=== PATIENT | female | born 1975 | race Caucasian/White ===

== ENCOUNTER 2020-07-21 10:04 | Inpatient (IN) | payer BC, SELFPAY ==
--- NOTE | ~2020-07-21 | CT_ITS ---
EXAMINATION: CT abdomen pelvis w con EXAM DATE: 07/26/2020 14:13 INDICATION: Follow-up pelvic abscess. TECHNIQUE: Spiral CT of the abdomen and pelvis was performed following intravenous injection of 100 m L Omnipaque 350. Axial, coronal and sagittal images were reviewed. The dose-length product (DLP) fo r this examination was 750.20 mGy-cm. The exposure was tailored according to patient size (auto mA e xposure control), and iterative reconstruction (ASIR) was used as additional dose reduction technique . Comparison is made to prior examination from 07/21/2020. FINDINGS: Possible recent trocar sites identified abdomen bilaterally and at the umbilicus. Anterior lower abdominal pigtail catheter drain tip located above the bladder. The previously seen 12 cm absce ss pocket is collapsed, has been drained. There is inflammation in the pelvis as would be expected. The spleen, adrenal glands and pancreas are unremarkable. Some liver surface undulations, can't exclu de cirrhosis. The gallbladder is contracted but otherwise unremarkable. Portal and splenic veins are patent. Kidneys enhance symmetrically. There is no hydronephrosis. The uterus is not identified and has likely been surgically resected. The bladder is unremarkable. There is no retroperitoneal o r pelvic lymphadenopathy. The appendix is normal. The stomach and small bowel are unremarkable. There is colonic fluid, corre late for diarrhea. No free intraperitoneal gas. There are small to moderate bilateral pleural eff usions which have developed compared to prior examination. Some progression in bibasilar subsegmental atelectasis. There are no osteoblastic or osteolytic lesions identified. IMPRESSION: 1. Pelvic drain in position within collapsed abscess cavity. 2. Development of small to moderate pleural effusions, bibasilar segmental atelectasis. 3. Colonic fluid. 4. Liver surface undulations, can't exclude cirrhosis. Reviewed, dictated and finalized at location B. IMPRESSION: 1. Pelvic drain in position within collapsed abscess cavity. 2. Development of small to moderate pleural effusions, bibasilar segmental ate lectasis. 3. Colonic fluid. 4. Liver surface undulations, can't exclude cirrhosis.
--- NOTE | ~2020-07-21 | CT_ITS ---
EXAMINATION: CT guide absc cath placement DATE: 07/22/2020 15:01 INDICATION: Pelvic abscess TECHNIQUE: The procedure including the risks and benefits was discussed with the patient. Risks discu ssed included bleeding and infection. The patient understood the risks and benefits and agreed to pro ceed. The patient was confirmed to be receiving appropriate antibiotic coverage. The skin overlying the anterior midline of the pelvis was prepped and draped in usual sterile fashion. Anesthetic was a dministered with 1% lidocaine subcutaneously. An 18-gauge trocar needle was inserted into the periton eal fluid collection utilizing CT guidance. The inner stylette was removed with spontaneous reflux of gas and small amount of purulent appearing fluid. A J-wire advanced into the fluid collection with p ositioning confirmed by CT. Utilizing Seldinger technique the needle was removed over the wire and th e tract serially dilated to 10 Italian. A 10 Italian drainage catheter was advanced over the wire into the fluid collection and the pigtail tip was locked with position confirmed by CT. The stiffener and wire were removed and the catheter was stitched to the skin with suture. Antibiotic ligament and a st erile dressing were applied. 50 mL of opaque brown purulent appearing fluid was aspirated and sent to t he lab for Gram stain and cultures. The catheter was then attached to suction drainage with an additi onal 100 mL of purulent appearing fluid having drained into the bag at the conclusion of the procedur e. There were no immediate complications. The dose-length product was 87.67 mGy-cm. FINDINGS: CT images demonstrate the catheter within the enlarged gas and fluid containing abscess cav ity in the central pelvis. 50 mL fluid was aspirated for testing. IMPRESSION: 1. Successful CT-guided pelvic abscess drainage catheter placement. 2. 50 mL fluid was sent for aerobic and anaerobic cultures. 3. The catheter will be managed by Dr. Yoder. Reviewed, dictated and finalized at location A.
--- NOTE | ~2020-07-21 | XR_ITS ---
XR chest 2V 07/22/2020 14:57 Indication: Productive cough. Dyspnea. Procedure: 2 view chest Comparison: 05/26/2018 Findings: Bibasilar airspace disease, compatible with pneumonia. Borderline heart size. No significan t pleural effusion, edema or pneumothorax. Impression: 1: Bibasilar airspace disease, compatible with pneumonia. Reviewed, dictated and finalized at location B. Impression: 1: Bibasilar airspace disease, compatible with pneumonia.
--- NOTE | ~2020-07-21 | CT_ITS ---
EXAMINATION: CT abdomen pelvis w con EXAM DATE: 07/21/2020 11:49 INDICATION: Abdominal pain and distention. TECHNIQUE: Spiral CT of the abdomen and pelvis was performed following intravenous injection of 100 m L Omnipaque 350. Axial, coronal and sagittal images were reviewed. The dose-length product (DLP) fo r this examination was 611.77 mGy-cm. The exposure was tailored according to patient size (auto mA e xposure control), and iterative reconstruction (ASIR) was used as additional dose reduction technique . There is no prior study for comparison. FINDINGS: There is a large abscess in the mid aspect of the pelvis with air-fluid level measuring 10 x 12 cm. No gross free intraperitoneal gas. Consider percutaneous drainage. The liver, spleen, adren al glands and pancreas are unremarkable. Moderate gallbladder distention without calcified cholelith iasis. Portal and splenic veins are patent. Kidneys enhance symmetrically. There is no hydronephro sis. The uterus is not identified and has likely been surgically resected. The bladder is unremark able. There is no retroperitoneal or pelvic lymphadenopathy. The appendix is normal. The stomach and small bowel are unremarkable. There is expected amount of c olonic stool. No free intraperitoneal gas. The heart is normal in size. There are no pericardial or pleural effusions. Linear by basilar atelectasis. There are no osteoblastic or osteolytic lesio ns identified. IMPRESSION: Large pelvic abscess of uncertain underlying origin. Recommend percutaneous drainage. Reviewed, dictated and finalized at location A. IMPRESSION: Large pelvic abscess of uncertain underlying origin. Recommend perc utaneous drainage.
--- NOTE | 2020-07-21 10:15 | ED.ABDPAIN ---
HPI - Abdominal Pain General Chief Complaint: Abdominal Pain Stated Complaint: abd pain/distention Time Seen by Provider: 07/21/20 10:15 History of Present Illness HPI narrative: Worsening abdominal pain and distension since hysterectomy days ago. Associated with constipation and difficulty urinating. She reports that she is still able to urinate and have bowel movements, but only in small amounts. She was taking vicodin until 3 days ago. No nausea, vomiting, fever, hematuria. Related Data Home Medications Medication Instructions Recorded Confirmed cholecalciferol (vitamin D3) 2,000 unit PO DAILY 07/21/20 07/21/20 levothyroxine [Synthroid] 88 mcg PO DAILY 07/21/20 07/21/20 liothyronine 5 mcg PO BID 07/21/20 07/21/20 sertraline 50 mg PO DAILY 07/21/20 07/21/20 Allergies Allergy/AdvReac Type Severity Reaction Status Date / Time propoxyphene Allergy Intermediate Hives / Verified 06/30/15 02:13 Red Face acetaminophen Allergy Hives Verified 07/21/20 17:58 [From JonnyVini] Review of Systems Review of Systems: All systems reviewed & are unremarkable except as noted in HPI and below Constitutional: Constitutional: Denies chills, Denies fever(s) and Denies weakness Cardiovascular: Cardiovascular: Denies chest pain Respiratory: Respiratory: Denies dyspnea Gastrointestinal: Gastrointestinal: Reports abdominal pain, Reports constipation, Denies nausea and Denies vomiting Genitourinary: Genitourinary: Denies hematuria and Denies flank pain Musculoskeletal: Musculoskeletal: Reports back pain Neurologic: Denies dizziness PMF Past Medical History Medical History Anemia Anxiety Atrial fibrillation, persistent Depression Hypothyroidism Uterine fibroid Surgical History Surgical History H/O thyroidectomy H/O: hysterectomy Social History Social History Smoking status: Never smoker Alcohol intake: never Substance use: never Gender identity (if verbalized by the patient): Female Sexual Orientation (if Verbalized by the Patient): Straight or Heterosexual Spiritual care concerns: No Exam Const: General: healthy appearing, no acute distress and alert Orientation/consciousness: patient oriented x3 HENMT: Head: normal to inspection Resp: Effort & Inspection: normal respiratory effort Auscultation: clear to auscultation bilaterally, no rales, no rhonchi and no wheezes Cardio: Jugular venous distension: no JVD Rate: regular rate Rhythm: regular rhythm Heart sounds: no murmurs GI: Inspection: distended GI Palp: Yes Soft to palpation, Yes Tenderness to palpation present (GI) (generalized), No Guarding due to palpation present (GI) and No Rebound tenderness present Auscultation: normal bowel sounds Skin: General skin exam: normal color Neuro: General: patient oriented x3, moves all extremities, no focal motor deficits and CN's II-XI intact bilaterally Speech: normal speech Extrem: General: no edema Psych: Appearance: well kempt Affect: normal affect Course Vital Signs Vital signs: Vital Signs Temperature 36.8 C 07/21/20 10:40 Pulse Rate 82 07/21/20 10:40 Respiratory Rate 18 07/21/20 10:40 Blood Pressure 143/81 H 07/21/20 10:40 Pulse Oximetry 100 07/21/20 10:40 Temperature 36.8 C 07/21/20 10:40 Pulse Rate 78 07/21/20 12:00 Respiratory Rate 15 07/21/20 12:00 Blood Pressure 135/87 07/21/20 12:00 Pulse Oximetry 100 07/21/20 12:00 MDM - Abdominal Pain MDM Narrative Medical decision making narrative: CT shows large intraabdominal abscess. Discussed with Dr. Yoder. He will admit. Will start Zosyn and consult interventional radiology for drainage. Differential Diagnosis Differential diagnosis: Likely constipation, diverticulitis, small bowel obstruction and other (urinary retention, abscess)
[2020-07-21 10:40] VITALS: BP 143/81; PULSE 82; RESP 18; TEMP 36.8; O2SAT 100
[2020-07-21 11:03] LABS: Hematocrit 34.1 % (37.0-47.0); Hemoglobin 11.5 g/dL (12.0-15.0); Mean Corpuscular HGB Conc 33.7 g/dl (32-36); Mean Corpuscular Hemoglobin 30.8 pg (26-34); Mean Corpuscular Volume 91.4 fl (80-100); Mean Platelet Volume 11.4 fl (7.4-10.4); Platelet Count Result 230 k/mm3 (150-375); Red Blood Count 3.73 M/mm3 (4.2-5.4); Red Cell Distribution Width 13.3 % (11.5-14.5); White Blood Count 17.6 K/mm3 (4.5-10.0)
[2020-07-21 11:13] LABS: Alanine Aminotransferase 15 U/L (4-35); Albumin Level 3.5 g/dL (3.5-5.1); Alkaline Phosphatase 183 U/L (38-126); Anion Gap 12 mmol/L (8-16); Aspartate Amino Transferase 22 U/L (14-36); Bilirubin,Total 1.1 mg/dL (0.2-1.3); Blood Urea Nitrogen 21 mg/dL (7-17); Calcium 9.4 mg/dL (8.4-10.2); Carbon Dioxide 24 mmol/L (22-30); Chloride 101 mmol/L (98-107); Estimated CRCL calculation 36 ml/min; Estimated Glomerular Filt Rate 33; Glucose 96 mg/dL (65-105); Potassium 2.9 mmol/L (3.4-5.0); Sodium 137 mmol/L (137-145)
[2020-07-21 11:15] LABS: Band Neutrophils Percent 19 % (0-6); Eosinophils Absolute Manual 0.17 K/mm3 (0.02-0.5); Eosinophils Percent Manual 1 % (0-4); Lymphocytes Absolute Manual 1.58 K/mm3 (1.1-4.5); Lymphocytes Percent Manual 9 % (18-44); Monocytes Absolute Manual 1.23 K/mm3 (0.1-0.90); Monocytes Percent Manual 7 % (3-9); Neutrophils Percent Manual 64 % (46-73); Platelet Estimate Adequate (Adequate); Total Cells Counted 100
[2020-07-21 11:16] LABS: Lipase < 10 U/L (23-300)
[2020-07-21 11:16] LABS: Lactic Acid Reflex 1.6 mmol/L (0.7-2.1)
[2020-07-21 11:18] LABS: Add Urine Microscopic? YES; Appearance Urine Cloudy (Clear); Bacteria Urine Trace /hpf; Bilirubin Urine Negative (Negative); Blood Urine 1+ (Negative); Color Urine Yellow (Yellow); Glucose Urine UA 1+ mg/dL (Negative); Granular Casts Urine 30-49 /lpf; Hyaline Casts Urine 30-49 /lpf; Ketones Urine Negative (Negative); Leukocyte Esterase Ur 1+ LEU/UL (Negative); Mucus Urine Few /lpf; Nitrate Urine Negative (Negative); Protein Urine 2+ mg/dL (Negative); RBC Urine 0-2 /hpf (0-2); Specific Grav Ur 1.019 (1.001-1.035); Squamous Epithelial Cell Urine Moderate /hpf (Few); WBC Urine 21-30 /hpf
[2020-07-21 12:00] VITALS: BP 135/87; PULSE 78; RESP 15; O2SAT 100
[2020-07-21 14:00] VITALS: BMI 31.0
--- NOTE | 2020-07-21 14:00 | PC.NURSE ---
This patient, Jo Shukla, was admitted to [facility] Surg Room 300-01. Patient/family oriented to hospital policies and general routines including ID bracelet, bed and alarms, visiting hours, pain management, procedures, bathroom and other care routines, personal items, smoking policy, room service/diet, and visiting hours. Valuables list has been completed. Information on how to activate the Rapid Response Team has been discussed. Patient/Family are encouraged to report perceived risks to care and to ask questions if they do not understand what they are told or what they should do.
--- NOTE | 2020-07-21 16:59 | PM.IMHP ---
H&P: HPI History of Present Illness Date/Time: 07/21/20 16:59 Chief complaint: Intraabdominal abscess Narrative: Jo Shukla is a 45 year old female s/p RALTH and Bilateral Salpingectomy on 07/12. Presented initially to clinic with increasing abdominal pain and pressure, difficulty urinating, sweats and chills. She states that symptoms have been worsening over the past week. This morning she went to the bathroom to urinate and was putting pressure on her bladder with her and to help with urination and felt a pop . She then noticed blood in her urine. In clinic, a pelvic exam was performed, vaginal cuff appeared intact and no vaginal bleeding or abnormal discharge was noted. Since being admitted to the hospital, she says she is starting to have foul smelling bloody vaginal discharge. Review of Systems Constitutional: Constitutional: Reports chills Cardiovascular: Cardiovascular: Reports no additional cardiovascular complaints and Denies chest pain Respiratory: Respiratory: Reports no additional respiratory complaints and Denies dyspnea Gastrointestinal: Gastrointestinal: Reports abdominal pain and Reports bloating Genitourinary: Genitourinary: Reports urinary frequency Neurologic: Reports system reviewed and no additional complaints, except as documented Psychiatric: Psychiatric: Reports no additional psychiatric complaints PMFSH Past Medical History Medical History Anemia Anxiety Atrial fibrillation, persistent Depression Hypothyroidism Uterine fibroid Surgical History Surgical History H/O thyroidectomy H/O: hysterectomy Social History Social History Smoking status: Never smoker Alcohol intake: never Substance use: never Gender identity (if verbalized by the patient): Female Sexual Orientation (if Verbalized by the Patient): Straight or Heterosexual Spiritual care concerns: No Meds Home Medications and Allergies Home Medications Medication Instructions Recorded Confirmed Type ibuprofen 800 mg PO TID PRN #20 tablet 11/03/19 07/21/20 Rx cholecalciferol (vitamin D3) 2,000 unit PO DAILY 07/21/20 07/21/20 History levothyroxine [Synthroid] 88 mcg PO DAILY 07/21/20 07/21/20 History liothyronine 5 mcg PO BID 07/21/20 07/21/20 History sertraline 50 mg PO DAILY 07/21/20 07/21/20 History Allergies Allergy/AdvReac Type Severity Reaction Status Date / Time acetaminophen Allergy Intermediate Hives / Verified 06/30/15 02:13 Red Face propoxyphene Allergy Intermediate Hives / Verified 06/30/15 02:13 Red Face Vital Signs Vital Signs - 24 hr 07/21/20 10:40 07/21/20 12:00 Temperature 36.8 C Pulse Rate 82 78 Respiratory Rate 18 15 Blood Pressure 143/81 H 135/87 Pulse Oximetry 100 100 Exam Const: General: comfortable and no acute distress Resp: Effort & Inspection: normal respiratory effort Auscultation: clear to auscultation bilaterally Cardio: Rate: regular rate Rhythm: regular rhythm GI: Inspection: distended GI Palp: Yes Tenderness to palpation present (GI) Percussion: Yes dullness to percussion Skin: General skin exam: normal color Psych: Mental Status: mental status grossly normal Affect: normal affect H&P: Results Labs Labs: Short CBC 07/21/20 Range/Units 10:35 WBC 17.6 H (4.5-10.0) K/mm3 Hgb 11.5 L (12.0-15.0) g/dL Hct 34.1 L (37.0-47.0) % Plt Count 230 (150-375) k/mm3 BMP 07/21/20 10:34 Sodium 137 Potassium 2.9 L Chloride 101 Carbon Dioxide 24 BUN 21 H Creatinine 1.70 H Glucose 96 Calcium 9.4 Liver Function 07/21/20 Range/Units 10:34 Total Bilirubin 1.1 (0.2-1.3) mg/dL AST 22 (14-36) U/L ALT 15 (4-35) U/L Alkaline Phosphatase 183 H (38-126) U/L Albumin 3.5 (3.5-5.1) g/dL Urine 07/21/20 Range/Units 10:50 Urine Color Phyllis
[2020-07-21] MEDS: POTASSIUM CHLORIDE 20 MEQ TABLET 40 MEQ PO (17:05)
[2020-07-21] MEDS: SODIUM CHLORIDE 0.9% IV 1,000 ML 125 ML IV CONT (17:06)
[2020-07-21] MEDS: IBUPROFEN 600 MG TABLET PO (19:57)
[2020-07-21 20:00] VITALS: BP 104/49; PULSE 102; RESP 18; TEMP 37.3; O2SAT 98
[2020-07-21] MEDS: HYDROcodone/acetaminophen (*CRX) 5-325 MG TABLET 1 TAB PO (22:00)
--- NOTE | 2020-07-21 22:30 | PM.IMCN ---
Assessment and Plan Assessment and plan (1) Sepsis: Code(s): A41.9 - Sepsis, unspecified organism Status: Acute Assessment and Plan: Present on admission and supported by tachycardia, leukocytosis, and acute kidney injury in the setting of infection. Lactic acid levels within normal limits and blood pressures have been stable. Unfortunately blood cultures were not drawn prior to initiation of antibiotics. (2) Pelvic abscess: Status: Acute Assessment and Plan: Large pelvic abscess status post hysterectomy on 07/12/2020. Management per primary team, agree with the Zosyn and percutaneous drainage per IR. (3) Acute kidney injury: Code(s): N17.9 - Acute kidney failure, unspecified Status: Acute Assessment and Plan: Etiology not entirely clear but likely multifactorial in etiology to include poor oral intake, NSAID use, and possible ATN from sepsis. I suspect her renal function will improve with cessation of NSAIDs, IV fluid rehydration, and treatment of underlying infection. Given abdominal distension, I will ask the nurses to scan her bladder to ensure she is not retaining. Repeat renal function in a.m. and if no significant improvement, would consider further workup. (4) Hypokalemia: Code(s): E87.6 - Hypokalemia Status: Acute Assessment and Plan: Potassium was replaced and will be monitored. (5) Post-surgical hypothyroidism: Code(s): E89.0 - Postprocedural hypothyroidism Status: Acute Assessment and Plan: Continue levothyroxine and liothyronine own. HPI Data of Consult Consult date: 07/21/20 Requesting Physician: Ryann oYder DO Primary Care Provider: Jag Montes, Consult Narrative Narrative: Jo Shukla is a a pleasant 45-year-old female whom the hospitalist service has been consulted for further evaluation of acute kidney injury. She is status post robotic assisted laparoscopic total hysterectomy with bilateral salpingectomy on July 12, [address] Yoder. Surgery was performed at [facility] and she was kept overnight and discharged the following day. Since her surgery she has been feeling unwell, with nearly constant pressure-like discomfort in her lower abdomen/vaginal region. The discomfort does radiate into the lower back and today she even reports a sharp shooting pain up into her left flank simply while turning around in bed. She took Vicodin for her pain, which seemed to help a little bit, but her prescription ran out and thus she has been taking 800 mg of ibuprofen twice a day for the last week or so without a whole lot of benefit. Her appetite has also been poor with frequent nausea and dry heaves. She has also felt constipated and has been taking stool softeners however she has only had 4 or 5 small bowel movement since her surgery. She has also had difficulties urinating, and feels as though she has to put pressure in her suprapubic region in order for her to urinate. This morning while she was on the toilet she did apply pressure to that region and reports that she heard ?a pop? and shortly thereafter she began having malodorous, bloody discharge. Additionally she reports chills and sweats but she has not had a documented fever. She came to the emergency department today given ongoing malaise, fatigue, and significant loss of energy. She was found to meet sepsis criteria, presumably due to intra-abdominal abscess, as well as an acute kidney injury. At the time my evaluation she has no complaints other than those listed above. Review of Systems Review of Systems: Narrative: Twelve systems were reviewed with pertinent positives an
[2020-07-22] VITALS (9 sets, daily range): BP systolic 95–104; BP diastolic 48–62; PULSE 79–97; RESP 16–18; TEMP 36.6–37.4; O2SAT 92–99
[2020-07-22] MEDS: SODIUM CHLORIDE 0.9% IV 1,000 ML 125 ML IV CONT ×3 (00:23→20:23)
[2020-07-22] MEDS: HYDROcodone/acetaminophen (*CRX) 5-325 MG TABLET 1 TAB PO ×3 (05:30→20:24)
[2020-07-22] MEDS: LEVOTHYROXINE SODIUM 88 MCG TABLET PO (05:30)
[2020-07-22 06:19] LABS: Hematocrit 28.2 % (37.0-47.0); Hemoglobin 9.8 g/dL (12.0-15.0); Mean Corpuscular HGB Conc 34.8 g/dl (32-36); Mean Corpuscular Volume 89.2 fl (80-100); Mean Platelet Volume 10.8 fl (7.4-10.4); Platelet Count Result 201 k/mm3 (150-375); Red Blood Count 3.16 M/mm3 (4.2-5.4); Red Cell Distribution Width 13.1 % (11.5-14.5); White Blood Count 14.3 K/mm3 (4.5-10.0)
[2020-07-22 06:26] LABS: INR 1.4; Prothrombin Time 16.6 Seconds (11.1-14.7)
[2020-07-22 06:27] LABS: Partial Thromboplastin Time 43.9 SECONDS (22.3-36.8)
[2020-07-22 06:39] LABS: Alanine Aminotransferase 11 U/L (4-35); Albumin Level 2.7 g/dL (3.5-5.1); Alkaline Phosphatase 144 U/L (38-126); Anion Gap 8 mmol/L (8-16); Aspartate Amino Transferase 15 U/L (14-36); Bilirubin,Total 0.8 mg/dL (0.2-1.3); Blood Urea Nitrogen 19 mg/dL (7-17); Calcium 7.9 mg/dL (8.4-10.2); Carbon Dioxide 22 mmol/L (22-30); Chloride 104 mmol/L (98-107); Estimated CRCL calculation 41 ml/min; Estimated Glomerular Filt Rate 38; Glucose 101 mg/dL (65-105); Potassium 3.2 mmol/L (3.4-5.0); Sodium 134 mmol/L (137-145)
[2020-07-22 06:46] LABS: Band Neutrophils Percent 15 % (0-6); Monocytes Absolute Manual 0.71 K/mm3 (0.1-0.90); Monocytes Percent Manual 5 % (3-9); Neutrophils Absolute Manual 12.58 K/mm3 (1.7-7.2); Neutrophils Percent Manual 73 % (46-73); Platelet Estimate Adequate (Adequate); Total Cells Counted 100
[2020-07-22 07:32] LABS: Thyroid Stimulating Hormone Reflex 0.997 uIU/mL (0.465-4.68)
[2020-07-22 08:23] LABS: Magnesium 1.4 mg/dL (1.6-2.3)
[2020-07-22] MEDS: DOCUSATE SODIUM 100 MG CAPSULE PO ×2 (09:05→20:14)
[2020-07-22] MEDS: SERTRALINE HCL 50 MG TABLET PO (09:05)
[2020-07-22] MEDS: LIOTHYRONINE SODIUM 5 MCG TABLET PO ×2 (09:05→20:14)
--- NOTE | 2020-07-22 09:47 | PM.IMPN ---
Progress Note: A&P Assessment and Plan (1) Sepsis: Code(s): A41.9 - Sepsis, unspecified organism Status: Acute Assessment and Plan: Present on admission and supported by tachycardia, leukocytosis, and acute kidney injury in the setting of an intraabdominal abscess infection Lactic acid levels within normal limits and blood pressures have been stable. Unfortunately blood cultures were not drawn prior to initiation of antibiotics, but we will still check them and they are pending. Vitals at this time have showed afebrile, BP slightly low normal at 95/54 to continue IV fluids, nontachycardic, normal oxygenation and respirations. Continue monitoring vital signs and antibiotics. (2) Pelvic abscess: Status: Acute Assessment and Plan: Large pelvic abscess status post hysterectomy on 07/12/2020. Continue IV Zosyn and the patient will have a percutaneous drainage per IR placed today at 2:00 p.m.. Will also get a culture of her abscess for further monitoring on bacterial source of infection. FRONT DESK ADMIN Dr. Yoder is admitting and appreciate their recommendations. Continue monitoring patient's symptoms. (3) Acute kidney injury: Code(s): N17.9 - Acute kidney failure, unspecified Status: Acute Assessment and Plan: Etiology not entirely clear but likely multifactorial in etiology to include poor oral intake, NSAID use, and possible ATN from sepsis. Creatinine improved from 1.7-1.5 today with IV fluid hydration. I suspect her renal function will improve with cessation of NSAIDs, IV fluid rehydration, and treatment of underlying infection. Will continue monitoring to make sure she is not retaining any urine due to the large abscess. Continue monitoring renal function and electrolytes. (4) Hypokalemia: Code(s): E87.6 - Hypokalemia Status: Acute Assessment and Plan: Potassium was low this morning at 3.2 and magnesium was 1.4. Potassium and magnesium were replaced and will be monitored. (5) Post-surgical hypothyroidism: Code(s): E89.0 - Postprocedural hypothyroidism Status: Acute Assessment and Plan: TSH normal. Continue levothyroxine and liothyronine own. Time Spent With Patient Time with patient: 25 - 35 minutes Subjective Date/time seen: 07/22/20 09:47 Interval history: Patient is a 45-year-old woman with history of recent total hysterectomy on 07/12/[address] Yoder at [facility] who presented to the emergency room with worsening weakness, fatigue, pressure-like discomfort to lower abdominal/vaginal region since 07/18/2020. Date of service 07/22/2020: The patient denies any improvement of her symptoms today. She is still very uncomfortable with abdominal distension, bloating, feeling diffusely uncomfortable, chills, diaphoresis intermittently, weakness and fatigue. She has not been eating and drinking much over the last few days since she has not been feeling well. She also reports a productive cough with intermittent yellow sputum production over the last few days. Denies SOB, HUSSEIN. She reports some trouble starting her urine stream, but once she begins going it is normal without the feeling of retention. She denies any fevers, chest pain, lightheadedness, dizziness, syncope, leg swelling, calf pain, or any other symptoms at this time. Review of Systems Review of Systems: All systems reviewed & are unremarkable except as noted in HPI and below Exam Narrative: Exam Narrative: General: 45-year-old woman laying flat on her left side in bed. Appears comfortable when she is not moving around. In no acute distress. Skin: No jaundice or cyanosis. Good skin turgor. Neck: Full range o
[2020-07-22] MEDS: POTASSIUM CHLORIDE 20 MEQ TABLET 40 MEQ PO (09:59)
[2020-07-22] MEDS: MAGNESIUM SULFATE 3GM/D5W100ML 3 GM/100 ML BAG IVPB (10:10)
[2020-07-22] MEDS: ONDANSETRON INJ 4 MG/2 ML VIAL IV PUSH (10:52)
--- NOTE | 2020-07-22 13:35 | PC.NURSE ---
To Radiology per w/c for CT guided abscess drain placement
--- NOTE | 2020-07-22 18:05 | SUR.OPER ---
no sedation given per patient preference and MD okayed.
[2020-07-23] VITALS (9 sets, daily range): BP systolic 94–108; BP diastolic 59–68; PULSE 74–90; RESP 18; TEMP 36.7–37.9; O2SAT 93–98
[2020-07-23] MEDS: IBUPROFEN 600 MG TABLET PO (03:41)
[2020-07-23] MEDS: SODIUM CHLORIDE 0.9% IV 1,000 ML 125 ML IV CONT (03:42)
[2020-07-23] MEDS: LEVOTHYROXINE SODIUM 88 MCG TABLET PO (06:07)
[2020-07-23 06:20] LABS: Basophils Absolute Auto 0.1 K/mm3 (0.0-0.1); Basophils Percent Auto 0.3 % (0.2-1.2); Eosinophils Absolute Auto 0.1 K/mm3 (0-0.3); Eosinophils Percent Auto 0.7 % (0-4.4); Hematocrit 27.6 % (37.0-47.0); Hemoglobin 9.2 g/dL (12.0-15.0); Immature Granulocyte Absolute 0.35 K/mm3 (0.00-0.031); Immature Granulocyte Percent A 2.3 % (0-0.5); Lymphocytes Absolute Auto 1.38 K/mm3 (0.9-3.2); Mean Corpuscular HGB Conc 33.3 g/dl (32-36); Mean Corpuscular Hemoglobin 30.5 pg (26-34); Mean Corpuscular Volume 91.4 fl (80-100); Mean Platelet Volume 11.1 fl (7.4-10.4); Monocytes Absolute Auto 0.7 K/mm3 (0.1-0.6); Monocytes Percent Auto 4.3 % (2.6-8.5); Neutrophils Absolute Auto 12.7 K/mm3 (1.3-6.7); Neutrophils Percent Auto 83.4 % (45.5-73.1); Platelet Count Result 231 k/mm3 (150-375); Red Blood Count 3.02 M/mm3 (4.2-5.4); Red Cell Distribution Width 13.8 % (11.5-14.5); White Blood Count 15.3 K/mm3 (4.5-10.0)
[2020-07-23 06:35] LABS: Anion Gap 7 mmol/L (8-16); Blood Urea Nitrogen 18 mg/dL (7-17); Calcium 7.4 mg/dL (8.4-10.2); Carbon Dioxide 22 mmol/L (22-30); Chloride 106 mmol/L (98-107); Estimated CRCL calculation 58 ml/min; Estimated Glomerular Filt Rate 54; Glucose 94 mg/dL (65-105); Potassium 3.4 mmol/L (3.4-5.0); Sodium 135 mmol/L (137-145)
[2020-07-23] MEDS: HYDROcodone/acetaminophen (*CRX) 5-325 MG TABLET 1 TAB PO ×2 (07:13→17:03)
[2020-07-23 08:19] LABS: Magnesium 2.5 mg/dL (1.6-2.3)
[2020-07-23] MEDS: DOCUSATE SODIUM 100 MG CAPSULE PO ×2 (08:43→21:10)
[2020-07-23] MEDS: LIOTHYRONINE SODIUM 5 MCG TABLET PO ×2 (08:43→21:10)
[2020-07-23] MEDS: SERTRALINE HCL 50 MG TABLET PO (08:43)
--- NOTE | 2020-07-23 08:54 | P.PNOB_ITS ---
OB - PN: Subj Subjective Date/time seen: 07/23/20 08:54 Interval history: Patient is a 45-year-old woman with history of recent total hysterectomy on 07/12/[address] Yoder at [facility] who presented to the emergency room with worsening weakness, fatigue, pressure-like discomfort to lower abdominal/vaginal region since 07/18/2020. Date of service 07/22/2020: The patient denies any improvement of her symptoms today. She is still very uncomfortable with abdominal distension, bloating, feeling diffusely uncomfortable, chills, diaphoresis intermittently, weakness and fatigue. She has not been eating and drinking much over the last few days since she has not been feeling well. She also reports a productive cough with intermittent yellow sputum production over the last few days. Denies SOB, HUSSEIN. She reports some trouble starting her urine stream, but once she begins going it is normal without the feeling of retention. She denies any fevers, chest pain, lightheadedness, dizziness, syncope, leg swelling, calf pain, or any other sym ptoms at this time. OB - PN: Obj Data Labs CBC & Chem 7: 07/23/20 05:41 07/23/20 05:41 Labs: Laboratory Results - last 24 hr 07/23/20 07/23/20 07/23/20 05:39 05:41 05:41 WBC 15.3 H RBC 3.02 L Hgb 9.2 L Hct 27.6 L MCV 91.4 MCH 30.5 MCHC 33.3 RDW 13.8 Plt Count 231 MPV 11.1 H Immature Gran % (Auto) 2.3 H Neut % (Auto) 83.4 H Lymph % (Auto) 9.0 L Mclean % (Auto) 4.3 Eos % (Auto) 0.7 Baso % (Auto) 0.3 Lymph # (Auto) 1.38 Mclean # (Auto) 0.7 H Eos # (Auto) 0.1 Baso # (Auto) 0.1 Abs Immat Gran (auto) 0.35 H Absolute Neuts (auto) 12.7 H Absolute Nucleated RBC 0.0 Nucleated RBC % 0.0 Sodium 135 L Potassium 3.4 Chloride 106 Carbon Dioxide 22 Anion Gap 7 L BUN 18 H Creatinine 1.10 H Estim Creat Clear Calc 58 Estimated GFR 54 L Glucose 94 Calcium 7.4 L Magnesium 2.5 H Imaging Radiologist's impression: Impressions Chest X-Ray 07/22/20 15:05 Impression: 1: Bibasilar airspace disease, compatible with pneumonia. Catheter Placement CT 07/22/20 15:19 IMPRESSION: 1. Successful CT-guided pelvic abscess drainage catheter placement. 2. 50 mL fluid was sent for aerobic and anaerobic cultures. 3. The catheter will be managed by Dr. Yoder. OB - PN A/P Time Spent With Patient Time: Total time spent is greater than 50% in coordination of care (as documented) at patient's floor/unit and/or counseling patient:
--- NOTE | 2020-07-23 08:59 | PM.GYNPNOP ---
HOME AID - A/P Postoperative Procedures: Procedures Operation Date: 07/22/20 14:00 <No data on this case meets the specified criteria> Postoperative status: doing well (1. incentive spirometry, 2. hospitalist to assess ab converage for pneumonia, 3. continue with drain and current ab for abscess, 4. continue ab until afebrile/no leukocytosis. Patient questions answered/plan addressed.) Time Spent With Patient Time: Total time spent is greater than 50% in coordination of care (as documented) at patient's floor/unit and/or counseling patient: Time with patient: 15 - 25 minutes HOME AID- PN:Subj Post-Op Subjective Date/time seen: 07/23/20 08:59 Interval history: Patient is a 45-year-old woman with history of recent total hysterectomy on 07/12/[address] Yoder at [facility] who presented to the emergency room with worsening weakness, fatigue, pressure-like discomfort to lower abdominal/vaginal region since 07/18/2020. Patient seen last evening and this morning. [place] significant/rapid improvement in symptoms with drainage of abscess. Has also had some drainage vaginally though this has been minimal. Diet started last night and tolerated. Has passed gas and had BM. Some cough has persisted. Ambulating without difficulty. Review of Systems Respiratory: Respiratory: Reports chest congestion, Reports cough and Reports excessive phlegm production Gastrointestinal: Gastrointestinal: Reports no additional gastrointestinal complaints Genitourinary: Genitourinary: Reports no additional female genitourinary complaints Exam GI: Auscultation: normal bowel sounds Other: tender throughout//minimal distension HOME AID - PN: Obj Data Vital Signs Vital Signs: Vital Signs - 24 hr 07/22/20 12:00 07/22/20 16:00 07/22/20 19:30 Temperature 37.4 C 37.1 C Pulse Rate 97 88 Respiratory Rate 18 16 Blood Pressure 100/60 104/62 Pulse Oximetry 92 96 94 07/22/20 22:00 07/22/20 22:20 07/22/20 22:25 Temperature 37.0 C Pulse Rate 94 Respiratory Rate 18 Blood Pressure 96/48 L 96/48 L 96/48 L Pulse Oximetry 94 07/22/20 22:36 07/23/20 02:00 07/23/20 02:19 Temperature 37.9 C H 37.0 C Pulse Rate 90 Respiratory Rate 18 Blood Pressure 96/48 L 100/60 Pulse Oximetry 95 07/23/20 04:00 07/23/20 08:00 Temperature 36.8 C 36.8 C Pulse Rate 89 74 Respiratory Rate 18 18 Blood Pressure 101/68 102/60 Pulse Oximetry 93 96 Intake/Output Intake/Output: Intake & Output 07/20/20 07/21/20 07/22/20 07/23/20 23:59 23:59 23:59 23:59 Intake Total 100 4350 2220 Output Total 2150 730 Balance 100 2200 1490 Meds/Results Medications: Active Medications Generic Name Dose Route Start Last Admin Trade Name Freq PRN Reason Stop Dose Admin Hydrocodone Bitart/Acetaminophen 1 tab 07/21/20 15:43 07/23/20 07:13 [place] 5-325 Mg PO 1 tab Q6H PRN Administration Pain Rated 4-6 Diphenhydramine HCl 25 mg 07/21/20 15:43 Benadryl Cap PO Q6H PRN Itching Docusate Sodium 100 mg 07/22/20 09:00 07/23/20 08:43 Colace Capsule PO 100 mg Q12HR MARIA VICTORIA Administration Piperacillin Sod/Tazobactam Sod 2.25 gm in 50 mls @ 100 mls/hr 07/21/20 18:00 07/23/20 06:36 Zosyn 2.25 Gm/D5w 50 Ml IVPB Infused Q6H MARIA VICTORIA Infusion Sodium Chloride 1,000 mls @ 125 mls/hr 07/21/20 15:40 07/23/20 03:42 Normal Saline Iv IV CONT 125 mls/hr .Q8H MARIA VICTORIA Administration Ibuprofen 600 mg 07/21/20 15:43 07/23/20 03:41 Motrin PO 600 mg Q6H PRN Administration Pain Rated 1-3 Levothyroxine Sodium 88 mcg 07/22/20 06:30 07/23/20 06:07 Synthroid PO 88 mcg DAILY@0630 MARIA VICTORIA Administration Liothyronine Sodium 5 mcg 07/22/20 09:00 07/23/20 08:43 Cytomel PO 5 mcg Q12HR MARIA VICTORIA Administration Morphine Sulfate 4 mg 07/21/20 15:43 Morphine Sulfate Inj (*Crx) IV PUSH Q4H PRN Pain Rated 7-10 Naloxone HCl 0.1 mg 07/21/20 15:43 Narcan IV PUSH Q5MIN PRN
--- NOTE | 2020-07-23 14:03 | P.PNIM_ITS ---
Progress Note: A&P Assessment and Plan (1) Sepsis: Code(s): A41.9 - Sepsis, unspecified organism Status: Acute Assessment and Plan: Present on admission and supported by tachycardia, leukocytosis, and acute kid omar injury in the setting of an intraabdominal abscess infection and pneumonia. * Lactic acid levels within normal limits and blood pressures have been stable. * Unfortunately blood cultures were not drawn prior to initiation of antibiotics, were checked and blood cultures are negative at this point. * Abdominal abscess cultures were taken and pending. * Last night the patient had low-grade fever at 100.2. Otherwise she has been non tachycardic, BP improved today since she is not eating and drinking without any issues,normal oxygenation and respirations. Continue monitoring vital signs and antibiotics. (2) Pelvic abscess: Status: Acute Assessment and Plan: Large pelvic abscess status post hysterectomy on 07/12/2020. * Continue IV Zosyn was started on arrival * Percutaneous drain was placed on 07/22/2020 and is draining well * Pending cultures for abscess. * Patient's pain is much improved and she is getting around without any issues. * PROFESSOR OF LANGUAGES Dr. Yoder is admitting and appreciate their recommendations. Continue monitoring patient's symptoms. (3) Pneumonia: Code(s): J18.9 - Pneumonia, unspecified organism Status: Acute Assessment and Plan: Believe this could be secondary to her having decreased respirations due to abdominal distension, pain and discomfort. Will treat her for community- acquired pneumonia * Continue IV Zosyn at this time. * Will order a Cornet an incentive spirometer. * Will order albuterol inhaler as needed for shortness of breath or wheezing Continue monitoring patient's symptoms. (4) Acute kidney injury: Code(s): N17.9 - Acute kidney failure, unspecified Status: Acute Assessment and Plan: Etiology not entirely clear but likely multifactorial in etiology to include poor oral intake, NSAID use, and possible ATN from sepsis. * Creatinine improved from1.5 t 1.1 today with IV fluid hydration. * She is eating and drinking without any issues we will stop IV fluids at this time. * Continue treatment of infection and making sure she stays hydrated * To urinate without any issues at this time. Continue monitoring renal function and electrolytes. (5) Hypokalemia: Code(s): E87.6 - Hypokalemia Status: Acute Assessment and Plan: Potassium was low this morning at 3.4 and magnesium was normal at 2.5. Continue monitoring magnesium and potassium. (6) Post-surgical hypothyroidism: Code(s): E89.0 - Postprocedural hypothyroidism Status: Acute Assessment and Plan: TSH normal. Continue levothyroxine and liothyronine own. Time Spent With Patient Time with patient: 25 - 35 minutes Subjective Date/time seen: 07/23/20 14:03 Interval history: Patient is a 45-year-old woman with history of recent total hysterectomy on 07/12/[address] Yoder at [facility] who presented to the emergency room with worsening weakness, fatigue, pressure-like discomfort to lower abdominal/vaginal region since 07/18/2020. Date of service 07/23/2020: Patient is feeling much better today. Sh
--- NOTE | 2020-07-23 14:03 | PM.IMPN ---
Progress Note: A&P Assessment and Plan (1) Sepsis: Code(s): A41.9 - Sepsis, unspecified organism Status: Acute Assessment and Plan: Present on admission and supported by tachycardia, leukocytosis, and acute kidney injury in the setting of an intraabdominal abscess infection and pneumonia. Lactic acid levels within normal limits and blood pressures have been stable. Unfortunately blood cultures were not drawn prior to initiation of antibiotics, were checked and blood cultures are negative at this point. Abdominal abscess cultures were taken and pending. Last night the patient had low-grade fever at 100.2. Otherwise she has been non tachycardic, BP improved today since she is not eating and drinking without any issues,normal oxygenation and respirations. Continue monitoring vital signs and antibiotics. (2) Pelvic abscess: Status: Acute Assessment and Plan: Large pelvic abscess status post hysterectomy on 07/12/2020. Continue IV Zosyn was started on arrival Percutaneous drain was placed on 07/22/2020 and is draining well Pending cultures for abscess. Patient's pain is much improved and she is getting around without any issues. BREAKER OFF Dr. Yoder is admitting and appreciate their recommendations. Continue monitoring patient's symptoms. (3) Pneumonia: Code(s): J18.9 - Pneumonia, unspecified organism Status: Acute Assessment and Plan: Believe this could be secondary to her having decreased respirations due to abdominal distension, pain and discomfort. Will treat her for community-acquired pneumonia Continue IV Zosyn at this time. Will order a Cornet an incentive spirometer. Will order albuterol inhaler as needed for shortness of breath or wheezing Continue monitoring patient's symptoms. (4) Acute kidney injury: Code(s): N17.9 - Acute kidney failure, unspecified Status: Acute Assessment and Plan: Etiology not entirely clear but likely multifactorial in etiology to include poor oral intake, NSAID use, and possible ATN from sepsis. Creatinine improved from1.5 t 1.1 today with IV fluid hydration. She is eating and drinking without any issues we will stop IV fluids at this time. Continue treatment of infection and making sure she stays hydrated To urinate without any issues at this time. Continue monitoring renal function and electrolytes. (5) Hypokalemia: Code(s): E87.6 - Hypokalemia Status: Acute Assessment and Plan: Potassium was low this morning at 3.4 and magnesium was normal at 2.5. Continue monitoring magnesium and potassium. (6) Post-surgical hypothyroidism: Code(s): E89.0 - Postprocedural hypothyroidism Status: Acute Assessment and Plan: TSH normal. Continue levothyroxine and liothyronine own. Time Spent With Patient Time with patient: 25 - 35 minutes Subjective Date/time seen: 07/23/20 14:03 Interval history: Patient is a 45-year-old woman with history of recent total hysterectomy on 07/12/[address] Yoder at [facility] who presented to the emergency room with worsening weakness, fatigue, pressure-like discomfort to lower abdominal/vaginal region since 07/18/2020. Date of service 07/23/2020: Patient is feeling much better today. She states right after they placed her perc drain and removed a whole bag of fluid she felt 100% better. Since then she has been able to eat and drink without any issues. She did have some diaphoresis last night and her temperature was 100.2?. She still has some discomfort to her abdomen and distension, but is much improved. She is not having any issues with urinatio
[2020-07-23] MEDS: ALBUTEROL SULFATE (*SP) AEROSOL 1 PUFF 2 PUFF INHALATION (21:32)
[2020-07-24] MEDS: HYDROcodone/acetaminophen (*CRX) 5-325 MG TABLET 1 TAB PO ×3 (00:06→20:12)
[2020-07-24 04:00] VITALS: BP 109/69; PULSE 86; RESP 18; TEMP 36.1; O2SAT 91
[2020-07-24 06:11] LABS: Basophils Absolute Auto 0.1 K/mm3 (0.0-0.1); Basophils Percent Auto 0.6 % (0.2-1.2); Eosinophils Absolute Auto 0.1 K/mm3 (0-0.3); Eosinophils Percent Auto 1.4 % (0-4.4); Hematocrit 27.9 % (37.0-47.0); Hemoglobin 9.2 g/dL (12.0-15.0); Immature Granulocyte Absolute 0.53 K/mm3 (0.00-0.031); Immature Granulocyte Percent A 5.2 % (0-0.5); Lymphocytes Absolute Auto 1.53 K/mm3 (0.9-3.2); Mean Corpuscular Hemoglobin 30.7 pg (26-34); Mean Platelet Volume 11.3 fl (7.4-10.4); Monocytes Absolute Auto 0.7 K/mm3 (0.1-0.6); Monocytes Percent Auto 7.1 % (2.6-8.5); Neutrophils Absolute Auto 7.2 K/mm3 (1.3-6.7); Neutrophils Percent Auto 70.7 % (45.5-73.1); Platelet Count Result 263 k/mm3 (150-375); Red Cell Distribution Width 14.1 % (11.5-14.5); White Blood Count 10.2 K/mm3 (4.5-10.0)
[2020-07-24] MEDS: ALBUTEROL SULFATE (*SP) AEROSOL 1 PUFF 2 PUFF INHALATION ×3 (06:20→17:19)
[2020-07-24 06:43] LABS: Anion Gap 5 mmol/L (8-16); Blood Urea Nitrogen 13 mg/dL (7-17); Calcium 7.8 mg/dL (8.4-10.2); Carbon Dioxide 24 mmol/L (22-30); Chloride 105 mmol/L (98-107); Estimated CRCL calculation 78 ml/min; Estimated Glomerular Filt Rate > 60; Glucose 88 mg/dL (65-105); Potassium 3.4 mmol/L (3.4-5.0); Sodium 134 mmol/L (137-145)
[2020-07-24] MEDS: LEVOTHYROXINE SODIUM 88 MCG TABLET PO (06:43)
[2020-07-24 08:00] VITALS: BP 109/70; PULSE 83; RESP 18; TEMP 36.6; O2SAT 94
[2020-07-24] MEDS: DOCUSATE SODIUM 100 MG CAPSULE PO ×2 (08:20→20:12)
[2020-07-24] MEDS: SERTRALINE HCL 50 MG TABLET PO (08:20)
[2020-07-24] MEDS: LIOTHYRONINE SODIUM 5 MCG TABLET PO ×2 (08:20→20:12)
--- NOTE | 2020-07-24 11:01 | P.PNIM_ITS ---
Progress Note: A&P Assessment and Plan (1) Sepsis: Code(s): A41.9 - Sepsis, unspecified organism Status: Acute Assessment and Plan: Present on admission and supported by tachycardia, leukocytosis, and acute kid omar injury in the setting of an intraabdominal abscess infection and pneumonia. * Lactic acid levels within normal limits and blood pressures have been stable. * Vitals stable, afebrile, non tachycardic, stable BP, normal oxygenation and respirations. Continue monitoring vital signs and antibiotics. (2) Pelvic abscess: Status: Acute Assessment and Plan: Large pelvic abscess status post hysterectomy on 07/12/2020. * Continue IV Zosyn was started on arrival * Percutaneous drain was placed on 07/22/2020 and is draining well * Unfortunately blood cultures were not drawn prior to initiation of antibiotics, were checked and blood cultures are negative at this point. * Abdominal abscess cultures were taken, Anaerobic Cx shows many WBCs, Mixed bacteria taylor. Aerobic Cx pending. * Patient's pain is much improved and she is getting around without any issues. * EXTRACT WRINGER Dr. Yoder is admitting and appreciate their recommendations. Continue monitoring patient's symptoms. (3) Pneumonia: Code(s): J18.9 - Pneumonia, unspecified organism Status: Acute Assessment and Plan: Believe this could be secondary to her having decreased respirations due to abdominal distension, pain and discomfort. Will treat her for community- acquired pneumonia * Continue IV Zosyn at this time. * Will order a Cornet an incentive spirometer. * Will order albuterol inhaler as needed for shortness of breath or wheezing * She is feeling better. Without any issues other than sputum production Continue monitoring patient's symptoms. (4) Acute kidney injury: Code(s): N17.9 - Acute kidney failure, unspecified Status: Acute Assessment and Plan: Etiology not entirely clear but likely multifactorial in etiology to include poor oral intake, NSAID use, and possible ATN from sepsis. * Creatinine improved from 1.5 to 0.8 today with IV fluid hydration. * She is eating and drinking without any issues we will stop IV fluids at this time. * Continue treatment of infection and making sure she stays hydrated * To urinate without any issues at this time. Continue monitoring renal function and electrolytes. (5) Hypokalemia: Code(s): E87.6 - Hypokalemia Status: Acute Assessment and Plan: Potassium was low this morning at 3.4 and magnesium was normal. Continue monitoring magnesium and potassium. (6) Post-surgical hypothyroidism: Code(s): E89.0 - Postprocedural hypothyroidism Status: Acute Assessment and Plan: TSH normal. Continue levothyroxine and liothyronine own. Time Spent With Patient Time with patient: 25 - 35 minutes Subjective Date/time seen: 07/24/20 11:01 Interval history: Patient is a 45-year-old woman with history of recent total hysterectomy on 07/12/[address] Yoder at [facility] who presented to the emergency room with worsening weakness, fatigue, pressure-like discomfort to lower abdominal/vaginal region since 07/18/2020. Date of service 07/24/2020: Patient is feeling much better today. She was up walkin
--- NOTE | 2020-07-24 11:01 | PM.IMPN ---
Progress Note: A&P Assessment and Plan (1) Sepsis: Code(s): A41.9 - Sepsis, unspecified organism Status: Acute Assessment and Plan: Present on admission and supported by tachycardia, leukocytosis, and acute kidney injury in the setting of an intraabdominal abscess infection and pneumonia. Lactic acid levels within normal limits and blood pressures have been stable. Vitals stable, afebrile, non tachycardic, stable BP, normal oxygenation and respirations. Continue monitoring vital signs and antibiotics. (2) Pelvic abscess: Status: Acute Assessment and Plan: Large pelvic abscess status post hysterectomy on 07/12/2020. Continue IV Zosyn was started on arrival Percutaneous drain was placed on 07/22/2020 and is draining well Unfortunately blood cultures were not drawn prior to initiation of antibiotics, were checked and blood cultures are negative at this point. Abdominal abscess cultures were taken, Anaerobic Cx shows many WBCs, Mixed bacteria taylor. Aerobic Cx pending. Patient's pain is much improved and she is getting around without any issues. 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 Yoder is admitting and appreciate their recommendations. Continue monitoring patient's symptoms. (3) Pneumonia: Code(s): J18.9 - Pneumonia, unspecified organism Status: Acute Assessment and Plan: Believe this could be secondary to her having decreased respirations due to abdominal distension, pain and discomfort. Will treat her for community-acquired pneumonia Continue IV Zosyn at this time. Will order a Cornet an incentive spirometer. Will order albuterol inhaler as needed for shortness of breath or wheezing She is feeling better. Without any issues other than sputum production Continue monitoring patient's symptoms. (4) Acute kidney injury: Code(s): N17.9 - Acute kidney failure, unspecified Status: Acute Assessment and Plan: Etiology not entirely clear but likely multifactorial in etiology to include poor oral intake, NSAID use, and possible ATN from sepsis. Creatinine improved from 1.5 to 0.8 today with IV fluid hydration. She is eating and drinking without any issues we will stop IV fluids at this time. Continue treatment of infection and making sure she stays hydrated To urinate without any issues at this time. Continue monitoring renal function and electrolytes. (5) Hypokalemia: Code(s): E87.6 - Hypokalemia Status: Acute Assessment and Plan: Potassium was low this morning at 3.4 and magnesium was normal. Continue monitoring magnesium and potassium. (6) Post-surgical hypothyroidism: Code(s): E89.0 - Postprocedural hypothyroidism Status: Acute Assessment and Plan: TSH normal. Continue levothyroxine and liothyronine own. Time Spent With Patient Time with patient: 25 - 35 minutes Subjective Date/time seen: 07/24/20 11:01 Interval history: Patient is a 45-year-old woman with history of recent total hysterectomy on 07/12/[address] Yoder at [facility] who presented to the emergency room with worsening weakness, fatigue, pressure-like discomfort to lower abdominal/vaginal region since 07/18/2020. Date of service 07/24/2020: Patient is feeling much better today. She was up walking around yesterday and is feeling much better today. She still has some abdominal distention, discomfort, and bloating, but it has improved. She has been able to eat and drink without any issues. She is not having any issues with urination and did have a small bowel movement this morning. She does still have a productive cough but it is more clear in color at this time.
[2020-07-24 12:00] VITALS: BP 110/71; PULSE 84; RESP 18; TEMP 36.6; O2SAT 92
[2020-07-24 16:00] VITALS: BP 109/72; PULSE 77; RESP 16; TEMP 36.7; O2SAT 96
[2020-07-24 20:00] VITALS: BP 112/73; PULSE 78; RESP 16; TEMP 37.1; O2SAT 100
[2020-07-25] VITALS (9 sets, daily range): BP systolic 92–113; BP diastolic 48–74; PULSE 64–79; RESP 16–18; TEMP 36.2–37.1; O2SAT 94–99
[2020-07-25] MEDS: ALBUTEROL SULFATE (*SP) AEROSOL 1 PUFF 2 PUFF INHALATION (01:20)
[2020-07-25] MEDS: LEVOTHYROXINE SODIUM 88 MCG TABLET PO (05:48)
[2020-07-25 05:56] LABS: Basophils Absolute Auto 0.1 K/mm3 (0.0-0.1); Basophils Percent Auto 0.7 % (0.2-1.2); Eosinophils Absolute Auto 0.1 K/mm3 (0-0.3); Eosinophils Percent Auto 1.1 % (0-4.4); Hematocrit 32.4 % (37.0-47.0); Hemoglobin 10.6 g/dL (12.0-15.0); Immature Granulocyte Absolute 0.69 K/mm3 (0.00-0.031); Immature Granulocyte Percent A 6.7 % (0-0.5); Lymphocytes Absolute Auto 1.85 K/mm3 (0.9-3.2); Mean Corpuscular HGB Conc 32.7 g/dl (32-36); Mean Corpuscular Hemoglobin 30.6 pg (26-34); Mean Corpuscular Volume 93.6 fl (80-100); Mean Platelet Volume 10.8 fl (7.4-10.4); Monocytes Absolute Auto 0.6 K/mm3 (0.1-0.6); Monocytes Percent Auto 6.1 % (2.6-8.5); Neutrophils Absolute Auto 6.9 K/mm3 (1.3-6.7); Neutrophils Percent Auto 67.4 % (45.5-73.1); Platelet Count Result 329 k/mm3 (150-375); Red Blood Count 3.46 M/mm3 (4.2-5.4); Red Cell Distribution Width 14.3 % (11.5-14.5); White Blood Count 10.3 K/mm3 (4.5-10.0)
[2020-07-25 06:06] LABS: Anion Gap 5 mmol/L (8-16); Blood Urea Nitrogen 10 mg/dL (7-17); Calcium 8.4 mg/dL (8.4-10.2); Carbon Dioxide 27 mmol/L (22-30); Chloride 103 mmol/L (98-107); Estimated CRCL calculation 78 ml/min; Estimated Glomerular Filt Rate > 60; Glucose 87 mg/dL (65-105); Magnesium 1.9 mg/dL (1.6-2.3); Potassium 3.2 mmol/L (3.4-5.0); Sodium 135 mmol/L (137-145)
[2020-07-25] MEDS: POTASSIUM CHLORIDE 20 MEQ TABLET 40 MEQ PO (07:52)
[2020-07-25] MEDS: LIOTHYRONINE SODIUM 5 MCG TABLET PO ×2 (07:53→20:44)
[2020-07-25] MEDS: SERTRALINE HCL 50 MG TABLET PO (07:53)
--- NOTE | 2020-07-25 08:25 | PM.GYNPNOP ---
NUTRITION DIRECTOR - A/P Assessment and plan (1) Pelvic abscess: Status: Acute Assessment and Plan: Drain in place, still having consistent output of about 60mls/day over the past 2 days Fluid culture pending, on Zosyn Continue inpatient care until output is decreased, adjust antibiotics as needed when cultures result. Will need to go home on oral antibiotics at discharge. (2) Acute kidney injury: Code(s): N17.9 - Acute kidney failure, unspecified Status: Acute Assessment and Plan: Cr now trended down to 0.8 Hospitalist service following, appreciate recs (3) Pneumonia: Code(s): J18.9 - Pneumonia, unspecified organism Status: Acute Assessment and Plan: Hospitalist service following, appreciate recs. (4) Post-surgical hypothyroidism: Code(s): E89.0 - Postprocedural hypothyroidism Status: Acute Postoperative Procedures: Procedures Operation Date: 07/22/20 14:00 <No data on this case meets the specified criteria> Time Spent With Patient Time: Total time spent is greater than 50% in coordination of care (as documented) at patient's floor/unit and/or counseling patient: Time with patient: 15 - 25 minutes NUTRITION DIRECTOR- PN:Vianney Post-Op Subjective Date/time seen: 07/25/20 08:25 Interval history: Patient is a 45-year-old woman h/o RAT on 07/12/20. Admitted to [facility] on 07/21/20 with pelvic abscess. She underwent CT guided drainage and drain placement. Initial drainage on 07/22 was 450mls. On 07/23 was 60mls. 07/24 was 58mls. CXR also showed findings consistent with pneumonia. She is currently on Zosyn. Fluid cultures pending. This morning she states she is feeling ok. She felt well on Saturday, but yesterday (Saturday), she did not feel very well. Was feeling more nauseous. Feels hungry, but nothing seemed appetizing. She denies vomiting. She is having more bowel movements. Denies diarrhea. She is still having occasional productive cough. Denies fevers, chills. Exam Const: General: comfortable, no acute distress, alert and awake Resp: Auscultation: clear to auscultation bilaterally Cardio: Rate: regular rate GI: Inspection: distended Other: Drain in place and draining brown purulent fluid Neuro: General: oriented to person, oriented to place and oriented to time Psych: Mental Status: mental status grossly normal NUTRITION DIRECTOR - PN: Obj Data Vital Signs Vital Signs: Vital Signs - 24 hr 07/24/20 12:00 07/24/20 16:00 07/24/20 20:00 Temperature 36.6 C 36.7 C 37.1 C Pulse Rate 84 77 78 Respiratory Rate 18 16 16 Blood Pressure 110/71 109/72 112/73 Pulse Oximetry 92 96 100 07/25/20 00:00 07/25/20 01:21 07/25/20 04:00 Temperature 37.1 C 36.8 C Pulse Rate 75 74 79 Respiratory Rate 16 18 Blood Pressure 106/74 92/48 L Pulse Oximetry 96 94 07/25/20 08:00 Temperature Pulse Rate 79 Respiratory Rate 18 Blood Pressure Pulse Oximetry 94 Intake/Output Intake/Output: Intake & Output 07/22/20 07/23/20 07/24/20 07/25/20 23:59 23:59 23:59 23:59 Intake Total 4350 3330 1980 700 Output Total 2150 1210 2458 1050 Balance 2200 2120 -478 -350 Meds/Results Medications: Active Medications Generic Name Dose Route Start Last Admin Trade Name Freq PRN Reason Stop Dose Admin Hydrocodone Bitart/Acetaminophen 1 tab 07/21/20 15:43 07/24/20 20:12 [place] 5-325 Mg PO 1 tab Q6H PRN Administration Pain Rated 4-6 Albuterol 2 puff 07/23/20 14:08 07/25/20 01:20 Proventil Hfa INHALATION 2 puff QIDRT PRN Administration Shortness Of Breath Diphenhydramine HCl 25 mg 07/21/20 15:43 Benadryl Cap PO Q6H PRN Itching Docusate Sodium 100 mg 07/22/20 09:00 07/25/20 07:53 Colace Capsule PO Not Given Q12HR MARIA VICTORIA Piperacillin/Tazobactam/Dextrose 3.375 gm in 50 mls @ 100 mls/hr 07/24/20 12:00 07/25/20 06:26 Zosyn 3.375 Gm/D5w 50ml Pm IVPB Infused Q6HR MARIA VICTORIA Infusion Ibuprofen 600 mg 07/21/20 15:43 07/23/20 03:41 Motrin P
--- NOTE | 2020-07-25 09:52 | P.PNIM_ITS ---
Progress Note: A&P Assessment and Plan (1) Sepsis: Code(s): A41.9 - Sepsis, unspecified organism Status: Acute Assessment and Plan: Present on admission and supported by tachycardia, leukocytosis, and acute kid omar injury in the setting of an intraabdominal abscess infection and pneumonia. * Lactic acid levels within normal limits and blood pressures have been stable. * Vitals stable, afebrile, non tachycardic, stable BP, normal oxygenation and respirations. Continue monitoring vital signs and antibiotics. (2) Pelvic abscess: Status: Acute Assessment and Plan: Large pelvic abscess status post hysterectomy on 07/12/2020. * Continue IV Zosyn that was started on arrival * Percutaneous drain was placed on 07/22/2020 and is draining well * Unfortunately blood cultures were not drawn prior to initiation of antibiotics, were checked and blood cultures are negative at this point. * Abdominal abscess cultures were taken, Anaerobic Cx shows many WBCs, Mixed bacteria taylor. Aerobic Cx pending. * Patient's pain is much improved and she is getting around without any issues. 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 Yoder is admitting and will monitor drain post discharge * Do not feel patient is stable at this time due to increased drainage from perc drain as well as pending culture results Continue monitoring patient's symptoms. (3) Pneumonia: Code(s): J18.9 - Pneumonia, unspecified organism Status: Acute Assessment and Plan: Believe this could be secondary to her having decreased respirations due to abdominal distension, pain and discomfort. Will treat her for community- acquired pneumonia * Continue IV Zosyn at this time * Will order a Cornet an incentive spirometer. * Will order albuterol inhaler as needed for shortness of breath or wheezing * She is feeling better. Without any issues other than sputum production * Will need Pneumonia treatment for a total of 7 days. Continue monitoring patient's symptoms. (4) Acute kidney injury: Code(s): N17.9 - Acute kidney failure, unspecified Status: Acute Assessment and Plan: Etiology not entirely clear but likely multifactorial in etiology to include poor oral intake, NSAID use, and possible ATN from sepsis. * Creatinine normalized at 0.8. * IV Fluids discontinued since she was eating well after drain place. * Monitor BP, and BMP daily since she is not eating as much. * Told her to continue drinking plenty of fluids to prevent dehydration. * She is urinating without any issues at this time. Continue monitoring renal function and electrolytes. (5) Hypokalemia: Code(s): E87.6 - Hypokalemia Status: Acute Assessment and Plan: Potassium was low this morning at 3.2 and replenished and magnesium was normal. Continue monitoring magnesium and potassium. (6) Post-surgical hypothyroidism: Code(s): E89.0 - Postprocedural hypothyroidism Status: Acute Assessment and Plan: TSH normal. Continue levothyroxine and liothyronine own. Time Spent With Patient Time with patient: 25 - 35 minutes Subjective Date/time seen: 07/25/20 09:52 Interval history: Patient is a 45-year-old woman h/o RATLH on 07/12/20. Admitted to [facility] on 07/21/20 with pelvic abscess. She underwent CT guided drainage and drain
--- NOTE | 2020-07-25 09:52 | PM.IMPN ---
Progress Note: A&P Assessment and Plan (1) Sepsis: Code(s): A41.9 - Sepsis, unspecified organism Status: Acute Assessment and Plan: Present on admission and supported by tachycardia, leukocytosis, and acute kidney injury in the setting of an intraabdominal abscess infection and pneumonia. Lactic acid levels within normal limits and blood pressures have been stable. Vitals stable, afebrile, non tachycardic, stable BP, normal oxygenation and respirations. Continue monitoring vital signs and antibiotics. (2) Pelvic abscess: Status: Acute Assessment and Plan: Large pelvic abscess status post hysterectomy on 07/12/2020. Continue IV Zosyn that was started on arrival Percutaneous drain was placed on 07/22/2020 and is draining well Unfortunately blood cultures were not drawn prior to initiation of antibiotics, were checked and blood cultures are negative at this point. Abdominal abscess cultures were taken, Anaerobic Cx shows many WBCs, Mixed bacteria taylor. Aerobic Cx pending. Patient's pain is much improved and she is getting around without any issues. 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 (3) Pneumonia: Code(s): J18.9 - Pneumonia, unspecified organism Status: Acute Assessment and Plan: Believe this could be secondary to her having decreased respirations due to abdominal distension, pain and discomfort. Will treat her for community-acquired pneumonia Continue IV Zosyn at this time Will order a Cornet an incentive spirometer. Will order albuterol inhaler as needed for shortness of breath or wheezing She is feeling better. Without any issues other than sputum production Will need Pneumonia treatment for a total of 7 days. Continue monitoring patient's symptoms. (4) Acute kidney injury: Code(s): N17.9 - Acute kidney failure, unspecified Status: Acute Assessment and Plan: Etiology not entirely clear but likely multifactorial in etiology to include poor oral intake, NSAID use, and possible ATN from sepsis. Creatinine normalized at 0.8. IV Fluids discontinued since she was eating well after drain place. Monitor BP, and BMP daily since she is not eating as much. Told her to continue drinking plenty of fluids to prevent dehydration. She is urinating without any issues at this time. Continue monitoring renal function and electrolytes. (5) Hypokalemia: Code(s): E87.6 - Hypokalemia Status: Acute Assessment and Plan: Potassium was low this morning at 3.2 and replenished and magnesium was normal. Continue monitoring magnesium and potassium. (6) Post-surgical hypothyroidism: Code(s): E89.0 - Postprocedural hypothyroidism Status: Acute Assessment and Plan: TSH normal. Continue levothyroxine and liothyronine own. Time Spent With Patient Time with patient: 25 - 35 minutes Subjective Date/time seen: 07/25/20 09:52 Interval history: Patient is a 45-year-old woman h/o RATLH on 07/12/20. Admitted to [facility] on 07/21/20 with pelvic abscess. She underwent CT guided drainage and drain placement. Initial drainage on 07/22 was 450mls. On 07/23 was 60mls. 07/24 was 58mls. CXR also showed findings consistent with pneumonia. She is currently on Zosyn. Fluid cultures pending. 07/25/2020: This morning she states she is feeling ok. She did not eat well yesterday due to having nausea and an upset stomach. She denies any vomiting. She does report loose stools sinc
[2020-07-25] MEDS: SACCHAROMYCES BOULARDII 250 MG CAPSULE PO ×2 (14:13→18:19)
[2020-07-25] MEDS: ONDANSETRON INJ 4 MG/2 ML VIAL IV PUSH (18:05)
[2020-07-25 19:29] LABS: Hematocrit 30.8 % (37.0-47.0); Hemoglobin 10.1 g/dL (12.0-15.0)
[2020-07-26] VITALS (7 sets, daily range): BP systolic 102–142; BP diastolic 52–73; PULSE 65–90; RESP 16–18; TEMP 36.2–37.1; O2SAT 91–97
[2020-07-26] MEDS: ONDANSETRON INJ 4 MG/2 ML VIAL IV PUSH (00:12)
[2020-07-26 06:06] LABS: Hemoglobin 9.7 g/dL (12.0-15.0); Mean Corpuscular HGB Conc 32.3 g/dl (32-36); Mean Corpuscular Hemoglobin 30.6 pg (26-34); Mean Corpuscular Volume 94.6 fl (80-100); Mean Platelet Volume 10.7 fl (7.4-10.4); Platelet Count Result 307 k/mm3 (150-375); Red Blood Count 3.17 M/mm3 (4.2-5.4); Red Cell Distribution Width 14.1 % (11.5-14.5); White Blood Count 10.3 K/mm3 (4.5-10.0)
[2020-07-26] MEDS: LEVOTHYROXINE SODIUM 88 MCG TABLET PO (06:16)
[2020-07-26 06:22] LABS: Anion Gap 4 mmol/L (8-16); Blood Urea Nitrogen 8 mg/dL (7-17); Carbon Dioxide 26 mmol/L (22-30); Chloride 104 mmol/L (98-107); Estimated CRCL calculation 78 ml/min; Estimated Glomerular Filt Rate > 60; Glucose 81 mg/dL (65-105); Magnesium 1.8 mg/dL (1.6-2.3); Potassium 3.6 mmol/L (3.4-5.0); Sodium 134 mmol/L (137-145)
[2020-07-26] MEDS: LIOTHYRONINE SODIUM 5 MCG TABLET PO ×2 (09:00→20:37)
[2020-07-26] MEDS: SERTRALINE HCL 50 MG TABLET PO (09:00)
[2020-07-26] MEDS: SACCHAROMYCES BOULARDII 250 MG CAPSULE PO ×2 (09:00→17:47)
--- NOTE | 2020-07-26 11:45 | PM.IMPN ---
Progress Note: A&P Assessment and Plan (1) Sepsis: Code(s): A41.9 - Sepsis, unspecified organism Status: Acute Assessment and Plan: Present on admission and supported by tachycardia, leukocytosis, and acute kidney injury in the setting of an intraabdominal abscess infection and pneumonia. Lactic acid levels within normal limits and blood pressures have been stable. Preliminary blood cultures demonstrate NGTD. (2) Pelvic abscess: Status: Acute Assessment and Plan: CT abd/pelvis demonstrated a large pelvic abscess status post hysterectomy on 07/12/2020. SIDER is on board. Drain management per SIDER. She is s/p percutaneous drain 07/22/20. Aerobic culture demonstrates clostridium and preliminary anaerobic culture demonstrates bacteroides sp, not B fragilis, with final sensitivities pending. Blood cultures (drawn after initiation of antibiotics) show NGTD. I have asked Dr. Tate to see the patient in consultation for antibiotic recommendations. The drain continues to have output and she reports nausea, inability to tolerate PO intake, and diarrhea. Await further infectious disease and SIDER recommendations. (3) Pneumonia: Code(s): J18.9 - Pneumonia, unspecified organism Status: Acute Assessment and Plan: CXR demonstrated bibasilar opacities. She is on IV zosyn for her abdominal abscess and pneumonia (day 6 - initiated 07/21) Continue supportive care with incentive spirometry and albuterol PRN. Continue to monitor. (4) Acute kidney injury: Code(s): N17.9 - Acute kidney failure, unspecified Status: Resolved Assessment and Plan: Resolved. Etiology likely multifactorial including poor oral intake, NSAID use, and possible ATN from sepsis. Continue to monitor BMP daily. Encourage PO fluid intake. (5) Hypokalemia: Code(s): E87.6 - Hypokalemia Status: Resolved Assessment and Plan: Potassium was low 07/25 and replenished. Magnesium was normal. Potassium is 3.6 and magnesium 1.8 today. Continue to monitor. (6) Post-surgical hypothyroidism: Code(s): E89.0 - Postprocedural hypothyroidism Status: Chronic Assessment and Plan: TSH was normal. Continue levothyroxine and liothyronine. (7) Diarrhea: Code(s): R19.7 - Diarrhea, unspecified Status: Acute Assessment and Plan: She reports frequent loose, yellow, watery stools every 10 minutes. I have ordered stool cultures. She is on florastor. She is on IV zosyn and I have asked Dr. Tate to see her for further antibiotic recommendations. (8) Nausea: Code(s): R11.0 - Nausea Status: Acute Assessment and Plan: Continue zofran PRN. Advance diet as tolerated and start with clear liquids. Subjective Date/time seen: 07/26/20 11:45 Interval history: Mrs. Shukla is a 45 y.o. female who is s/p robotic assisted laparoscopic total hysterectomy with bilateral salpingectomy on 07/12/20 complicated by pelvis abscess. She is s/p CT guided drainage and drain placement. She continues to have significant drain output with 58cc documented yesterday and what appears to be ~75cc today. CXR demonstrated pneumonia and she is on IV zosyn empirically for the abscess and pneumonia. She reports diarrhea since yesterday. She notes watery yellow stool every 10 minutes or so with intermittent breaks for 1 hour between episodes. She also reports that she has not eaten for 2 days. She feels very hungry but feels nauseous as soon as she smells anything but water. She is able to keep water down. She denies vomiting. She reports poor energy. She denies abdominal pain. She has no other concerns. She denies dyspnea, chest pain, fever, chills, and myalgias. She reports occasional cough but this has improved. Review of Systems Review of Systems: All systems reviewed & are unremarkable except as noted in HPI and below Exam Narrative: Exam Narrat
--- NOTE | 2020-07-26 13:02 | PM.GYNPNOP ---
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 ID has been consulted. Due to continued persistent drainage and distenstion, will repeat CT scan. Continue inpatient care until output is decreased, adjust antibiotics as needed when cultures result. Will need to go home on oral antibiotics at discharge. (2) Acute kidney injury: Code(s): N17.9 - Acute kidney failure, unspecified Status: Resolved Assessment and Plan: Resolved. (3) Pneumonia: Code(s): J18.9 - Pneumonia, unspecified organism Status: Acute Assessment and Plan: Hospitalist service following, appreciate recs. (4) Post-surgical hypothyroidism: Code(s): E89.0 - Postprocedural hypothyroidism Status: Chronic Postoperative Procedures: Procedures Operation Date: 07/22/20 14:00 <No data on this case meets the specified criteria> Time Spent With Patient Time: Total time spent is greater than 50% in coordination of care (as documented) at patient's floor/unit and/or counseling patient: Time with patient: 15 - 25 minutes RADIO TIME SALESPERSON- PN:Subj Post-Op Subjective Date/time seen: 07/26/20 13:02 Interval history: Mrs. Shukla is a 45 y.o. female who is s/p robotic assisted laparoscopic total hysterectomy with bilateral salpingectomy on 07/12/20 complicated by pelvis abscess. She is s/p CT guided drainage and drain placement. She continues to have significant drain output with 58cc documented yesterday and what appears to be ~75cc today. CXR demonstrated pneumonia and she is on IV zosyn empirically for the abscess and pneumonia. Fluid cultures shows bacteroides sp (not B fragilis) and clostridium sp. ID has been consulted for antibiotic guidance. She is feeling generally unwell today. She states she is hungry, but has not appetite to eat. The smell of food makes her nauseus. Denies vomiting. She is having diarrhea, which is characterized as yellow. She had dark still yesterday which per the RN looked bloody. The drain is continuing to drain, approximately 60mls a day. Denies any vaginal discharge. Exam Const: General: comfortable, no acute distress, alert and awake Orientation/consciousness: oriented to person, oriented to place and oriented to time Resp: Effort & Inspection: normal respiratory effort Auscultation: clear to auscultation bilaterally Cardio: Rate: regular rate Rhythm: regular rhythm GI: Inspection: distended Other: Drain in place and draining brown purulent fluid Skin: General skin exam: normal color Neuro: General: oriented to person, oriented to place and oriented to time Psych: Mental Status: mental status grossly normal Affect: normal affect RADIO TIME SALESPERSON - PN: Obj Data Vital Signs Vital Signs: Vital Signs - 24 hr 07/25/20 14:00 07/25/20 19:05 07/25/20 19:55 Temperature 36.2 C L 36.3 C L 36.2 C L Pulse Rate 70 64 66 Respiratory Rate 18 18 16 Blood Pressure 108/69 113/67 105/67 Pulse Oximetry 95 99 97 07/25/20 20:00 07/26/20 00:00 07/26/20 04:00 Temperature 36.2 C L 36.3 C L Pulse Rate 66 69 71 Respiratory Rate 16 18 16 Blood Pressure 106/71 105/68 Pulse Oximetry 97 96 92 07/26/20 08:00 Temperature 36.4 C L Pulse Rate 69 Respiratory Rate 16 Blood Pressure 102/60 Pulse Oximetry 96 Intake/Output Intake/Output: Intake & Output 07/23/20 07/24/20 07/25/20 07/26/20 23:59 23:59 23:59 23:59 Intake Total 3330 1980 2360 450 Output Total 1210 2458 1050 Balance 2120 -478 1310 450 Meds/Results Medications: Active Medications Generic Name Dose Route Start Last Admin Trade Name Freq PRN Reason Stop Dose Admin Hydrocodone Bitart/Acetaminophen 1 tab 07/21/20 15:43 07/24/20 20:12 [place] 5-325 Mg PO 1 tab Q6H PRN Administration Pain Rated 4-6 Albuterol
--- NOTE | 2020-07-26 14:08 | WPDINFPN2 ---
Progress Note: A&P Assessment and Plan (1) Pelvic abscess in female: Code(s): N73.9 - Female pelvic inflammatory disease, unspecified Status: Acute Subjective Date/time seen: 07/26/20 14:08 Interval history: consult received, but she is unavailable to seen in CT, will check back tomorrow Objective Data Vital Signs Vital Signs: Vital Signs - 24 hr 07/25/20 19:05 07/25/20 19:55 07/25/20 20:00 Temperature 36.3 C L 36.2 C L Pulse Rate 64 66 66 Respiratory Rate 18 16 16 Blood Pressure 113/67 105/67 Pulse Oximetry 99 97 97 07/26/20 00:00 07/26/20 04:00 07/26/20 08:00 Temperature 36.2 C L 36.3 C L 36.4 C L Pulse Rate 69 71 69 Respiratory Rate 18 16 16 Blood Pressure 106/71 105/68 102/60 Pulse Oximetry 96 92 96 07/26/20 12:00 Temperature 36.4 C Pulse Rate 68 Respiratory Rate 18 Blood Pressure 107/64 Pulse Oximetry 97 Intake/Output Intake/Output: Intake & Output 07/23/20 07/24/20 07/25/20 07/26/20 23:59 23:59 23:59 23:59 Intake Total 3330 1980 2360 690 Output Total 1210 2458 1050 Balance 2120 -478 1310 690 Meds/Results Medications: Active Medications Generic Name Dose Route Start Last Admin Trade Name Freq PRN Reason Stop Dose Admin Hydrocodone Bitart/Acetaminophen 1 tab 07/21/20 15:43 07/24/20 20:12 [place] 5-325 Mg PO 1 tab Q6H PRN Administration Pain Rated 4-6 Albuterol 2 puff 07/23/20 14:08 07/25/20 01:20 Proventil Hfa INHALATION 2 puff QIDRT PRN Administration Shortness Of Breath Diphenhydramine HCl 25 mg 07/21/20 15:43 Benadryl Cap PO Q6H PRN Itching Docusate Sodium 100 mg 07/22/20 09:00 07/26/20 09:00 Colace Capsule PO Not Given Q12HR MARIA VICTORIA Piperacillin/Tazobactam/Dextrose 3.375 gm in 50 mls @ 100 mls/hr 07/24/20 12:00 07/26/20 12:20 Zosyn 3.375 Gm/D5w 50ml Pm IVPB 100 mls/hr Q6HR MARIA VICTORIA Administration Ibuprofen 600 mg 07/21/20 15:43 07/23/20 03:41 Motrin PO 600 mg Q6H PRN Administration Pain Rated 1-3 Levothyroxine Sodium 88 mcg 07/22/20 06:30 07/26/20 06:16 Synthroid PO 88 mcg DAILY@0630 MARIA VICTORIA Administration Liothyronine Sodium 5 mcg 07/22/20 09:00 07/26/20 09:00 Cytomel PO 5 mcg Q12HR MARIA VICTORIA Administration Morphine Sulfate 4 mg 07/21/20 15:43 Morphine Sulfate Inj (*Crx) IV PUSH Q4H PRN Pain Rated 7-10 Naloxone HCl 0.1 mg 07/21/20 15:43 Narcan IV PUSH Q5MIN PRN Opioid Reversal Ondansetron HCl 4 mg 07/22/20 10:21 07/26/20 00:12 Zofran Inj IV PUSH 4 mg Q6H PRN Administration Nausea And Vomiting Polyethylene Glycol 17 gm 07/22/20 07:13 Miralax PO QAM PRN Constipation Saccharomyces Boulardii 250 mg 07/25/20 17:00 07/26/20 09:00 Florastor PO 250 mg BID MARIA VICTORIA Administration Sertraline HCl 50 mg 07/22/20 09:00 07/26/20 09:00 Zoloft PO 50 mg DAILY MARIA VICTORIA Administration Radiology Results: ITS Impressions Abdomen/Pelvis CT 07/21/20 12:08 IMPRESSION: Large pelvic abscess of uncertain underlying origin. Recommend percutaneous drainage. Chest X-Ray 07/22/20 15:05 Impression: 1: Bibasilar airspace disease, compatible with pneumonia. Catheter Placement CT 07/22/20 15:19 IMPRESSION: 1. Successful CT-guided pelvic abscess drainage catheter placement. 2. 50 mL fluid was sent for aerobic and anaerobic cultures. 3. The catheter will be managed by Dr. Yoder. Labs Labs: Laboratory Results - last 24 hr 07/25/20 07/26/20 07/26/20 19:16 05:21 05:21 WBC 10.3 H RBC 3.17 L Hgb 10.1 L 9.7 L Hct 30.8 L 30.0 L MCV 94.6 MCH 30.6 MCHC 32.3 RDW 14.1 Plt Count 307 MPV 10.7 H Sodium 134 L Potassium 3.6 Chloride 104 Carbon Dioxide 26 Anion Gap 4 L BUN 8 Creatinine 0.80 Estim Creat Clear Calc 78 Estimated GFR > 60 Glucose 81 Calcium 8.0 L Magnesium 1.8
[2020-07-26 14:22] LABS: IFOB Positive Control Positive; Immunochemical Fecal Occult Bl Negative (N)
[2020-07-27 02:01] VITALS: BP 112/73; PULSE 63; RESP 18; TEMP 36.6; O2SAT 94
[2020-07-27 05:34] LABS: Basophils Percent Auto 0.4 % (0.2-1.2); Eosinophils Absolute Auto 0.2 K/mm3 (0-0.3); Eosinophils Percent Auto 2.2 % (0-4.4); Hematocrit 30.8 % (37.0-47.0); Hemoglobin 10.2 g/dL (12.0-15.0); Immature Granulocyte Absolute 1.43 K/mm3 (0.00-0.031); Immature Granulocyte Percent A 13.6 % (0-0.5); Lymphocytes Absolute Auto 2.01 K/mm3 (0.9-3.2); Lymphocytes Percent Auto 19.1 % (18.3-44.2); Mean Corpuscular HGB Conc 33.1 g/dl (32-36); Mean Corpuscular Hemoglobin 30.9 pg (26-34); Mean Corpuscular Volume 93.3 fl (80-100); Mean Platelet Volume 10.2 fl (7.4-10.4); Monocytes Absolute Auto 0.8 K/mm3 (0.1-0.6); Neutrophils Percent Auto 56.7 % (45.5-73.1); Platelet Count Result 368 k/mm3 (150-375); White Blood Count 10.5 K/mm3 (4.5-10.0)
[2020-07-27 05:47] LABS: Alanine Aminotransferase 11 U/L (4-35); Albumin Level 2.8 g/dL (3.5-5.1); Alkaline Phosphatase 147 U/L (38-126); Anion Gap 7 mmol/L (8-16); Aspartate Amino Transferase 27 U/L (14-36); Bilirubin,Total 0.5 mg/dL (0.2-1.3); Blood Urea Nitrogen 8 mg/dL (7-17); Carbon Dioxide 25 mmol/L (22-30); Chloride 105 mmol/L (98-107); Estimated CRCL calculation 77 ml/min; Estimated Glomerular Filt Rate > 60; Glucose 83 mg/dL (65-105); Potassium 3.8 mmol/L (3.4-5.0); Sodium 137 mmol/L (137-145)
[2020-07-27] MEDS: LEVOTHYROXINE SODIUM 88 MCG TABLET PO (05:59)
[2020-07-27 06:00] VITALS: BP 110/62; PULSE 66; RESP 16; TEMP 36.8; O2SAT 94
[2020-07-27] MEDS: SACCHAROMYCES BOULARDII 250 MG CAPSULE PO ×2 (08:16→17:34)
[2020-07-27] MEDS: LIOTHYRONINE SODIUM 5 MCG TABLET PO ×2 (08:16→20:19)
[2020-07-27] MEDS: SERTRALINE HCL 50 MG TABLET PO (08:17)
--- NOTE | 2020-07-27 08:34 | PM.GYNPNOP ---
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 Fluid culture shows bacteroides (not fragilis) and clostridium, currently on Zosyn. ID has been consulted. CT scan on 07/26 shows that abscess has collapsed down Continue inpatient care until output is decreased, await ID guidance on antibiotic regimen. Will need to go home on oral antibiotics at discharge. (2) Acute kidney injury: Code(s): N17.9 - Acute kidney failure, unspecified Status: Resolved Assessment and Plan: Resolved. (3) Pneumonia: Code(s): J18.9 - Pneumonia, unspecified organism Status: Acute Assessment and Plan: Hospitalist service following, appreciate recs. 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 Shukla is a 45 y.o. female who is s/p robotic assisted laparoscopic total hysterectomy with bilateral salpingectomy on 07/12/20 complicated by pelvis abscess. She is s/p CT guided drainage and drain placement. Drain shows continued output of brown prurulent fluid. CXR demonstrated pneumonia and she is on IV zosyn empirically for the abscess and pneumonia. Fluid cultures shows bacteroides sp (not B fragilis) and clostridium sp. ID has been consulted for antibiotic guidance. CT abd/pelvis was repeated on 07/26 which showed that the abscess has collapsed down. She is feeling a little better today. She was able to tolerate some food yesterday. She did not have any diarrhea overnight, but did have an episode this morning. Denies any vaginal discharge. Exam Const: General: comfortable, no acute distress, alert and awake Orientation/consciousness: oriented to person, oriented to place and oriented to time GI: Other: Drain in place and draining brown purulent fluid Skin: General skin exam: normal color Neuro: General: oriented to person, oriented to place and oriented to time Psych: Mental Status: mental status grossly normal Affect: normal affect BARREL DRAINER - PN: Obj Data Vital Signs Vital Signs: Vital Signs - 24 hr 07/26/20 12:00 07/26/20 16:00 07/26/20 20:00 Temperature 36.4 C 37.1 C Pulse Rate 68 65 65 Respiratory Rate 18 16 16 Blood Pressure 107/64 103/73 Pulse Oximetry 97 94 94 07/26/20 22:17 07/27/20 02:01 07/27/20 06:00 Temperature 36.2 C L 36.6 C 36.8 C Pulse Rate 90 63 66 Respiratory Rate 18 18 16 Blood Pressure 142/52 H 112/73 110/62 Pulse Oximetry 91 94 94 Intake/Output Intake/Output: Intake & Output 07/24/20 07/25/20 07/26/20 07/27/20 23:59 23:59 23:59 23:59 Intake Total 1980 2360 1440 500 Output Total 2458 1080 505 Balance -478 1280 935 500 Meds/Results Medications: Active Medications Generic Name Dose Route Start Last Admin Trade Name Freq PRN Reason Stop Dose Admin Hydrocodone Bitart/Acetaminophen 1 tab 07/21/20 15:43 07/24/20 20:12 [place] 5-325 Mg PO 1 tab Q6H PRN Administration Pain Rated 4-6 Albuterol 2 puff 07/23/20 14:08 07/25/20 01:20 Proventil Hfa INHALATION 2 puff QIDRT PRN Administration Shortness Of Breath Diphenhydramine HCl 25 mg 07/21/20 15:43 Benadryl Cap PO Q6H PRN Itching Docusate Sodium 100 mg 07/22/20 09:00 07/27/20 08:17 Colace Capsule PO Not Given Q12HR MARIA VICTORIA Piperacillin/Tazobacta
--- NOTE | 2020-07-27 09:02 | PM.IMPN ---
Progress Note: A&P Assessment and Plan (1) Sepsis: Code(s): A41.9 - Sepsis, unspecified organism Status: Acute Assessment and Plan: Present on admission and supported by tachycardia, leukocytosis, and acute kidney injury in the setting of an intraabdominal abscess infection and pneumonia. Lactic acid levels within normal limits and blood pressures are stable. Preliminary blood cultures demonstrate NGTD. (2) Pelvic abscess: Status: Acute Assessment and Plan: CT abd/pelvis demonstrated a large pelvic abscess status post hysterectomy on 07/12/2020. PHOTOFLASH POWDER MIXER is on board. She is s/p percutaneous drain 07/22/20. Drain management per PHOTOFLASH POWDER MIXER. Aerobic culture demonstrates clostridium and preliminary anaerobic culture demonstrates bacteroides sp, not B fragilis, with final sensitivities pending. Blood cultures (drawn after initiation of antibiotics) show NGTD. I have asked Dr. Tate to see the patient in consultation for antibiotic recommendations. She is feeling much better today and tolerating diet. Drain output appears to have improved. CT abd/pelvis was repeated 07/26 and demonstrated collapsed abscess cavity. Await further infectious disease and PHOTOFLASH POWDER MIXER recommendations. (3) Pneumonia: Code(s): J18.9 - Pneumonia, unspecified organism Status: Acute Assessment and Plan: CXR demonstrated bibasilar opacities. She is on IV zosyn for her abdominal abscess and pneumonia (day 7 - initiated 07/21) Continue supportive care with incentive spirometry and albuterol PRN. Continue to monitor. (4) Acute kidney injury: Code(s): N17.9 - Acute kidney failure, unspecified Status: Resolved Assessment and Plan: Resolved. Etiology likely multifactorial including poor oral intake, NSAID use, and possible ATN from sepsis. Continue to monitor BMP daily. Encourage PO fluid intake. (5) Hypokalemia: Code(s): E87.6 - Hypokalemia Status: Resolved Assessment and Plan: Potassium was low 07/25 and replenished. Potassium and magnesium are sufficient today. (6) Post-surgical hypothyroidism: Code(s): E89.0 - Postprocedural hypothyroidism Status: Chronic Assessment and Plan: TSH was normal. Continue levothyroxine and liothyronine. (7) Diarrhea: Code(s): R19.7 - Diarrhea, unspecified Status: Acute Assessment and Plan: She reports frequent loose, yellow, watery stools. Stool cultures were ordered and pending. Continue florastor. She is on IV zosyn for intra-abdominal abscess. C. diff toxin was negative. Await further stool cultures. (8) Nausea: Code(s): R11.0 - Nausea Status: Acute Assessment and Plan: Continue zofran PRN. Advance diet as tolerated and start with clear liquids. (9) Abnormal finding on CT scan: Code(s): R93.89 - Abnormal findings on diagnostic imaging of other specified body structures Status: Acute Assessment and Plan: CT abd/pelvis demonstrated liver surface undulations and radiologist noted cirrhosis cannot be excluded. ALP is elevated at 147. I will check hepatitis panel. She reports no known hx of liver disease. She denies alcohol use. She will need to follow-up with her PCP outpatient and consider GI referral. Subjective Date/time seen: 07/27/20 09:02 Interval history: Interval history: Mrs. Shukla is a 45 y.o. female who is s/p robotic assisted laparoscopic total hysterectomy with bilateral salpingectomy on 07/12/20 complicated by pelvis abscess. She is s/p CT guided drainage and drain placement.CXR demonstrated pneumonia and she is on IV zosyn empirically for the abscess and pneumonia. Fluid cultures shows bacteroides sp (not B fragilis) and clostridium sp. ID has been consulted for antibiotic guidance. CT abd/pelvis was repeated on 07/26 and showed that the abscess has collapsed down. She is feeling much better today and tolerated clear liquids ye
[2020-07-27 09:41] LABS: Hepatitis B Surface Antigen Negative (Negative)
[2020-07-27 09:47] LABS: HAV RESULT Negative (Negative); Hepatitis B Core IgM Result Negative (Negative)
[2020-07-27 09:58] LABS: Hepatitis C Virus Antibody Negative (Negative)
--- NOTE | 2020-07-27 12:53 | WPDINFPN2 ---
Progress Note: A&P Assessment and Plan (1) Pelvic abscess in female: Onset Date: 07/17/20 Code(s): N73.9 - Female pelvic inflammatory disease, unspecified Status: Acute Assessment and Plan: 1. Deep SSI after hysterectomy 2. Antibiotic associated loose BMs, no C diff REC PipTazo #4, f/u exam/labs. Do not anticipate IV therapy after discharge. Subjective Date/time seen: 07/27/20 12:53 Objective Data Vital Signs Vital Signs: Vital Signs - 24 hr 07/26/20 16:00 07/26/20 20:00 07/26/20 22:17 Temperature 37.1 C 36.2 C L Pulse Rate 65 65 90 Respiratory Rate 16 16 18 Blood Pressure 103/73 142/52 H Pulse Oximetry 94 94 91 07/27/20 02:01 07/27/20 06:00 Temperature 36.6 C 36.8 C Pulse Rate 63 66 Respiratory Rate 18 16 Blood Pressure 112/73 110/62 Pulse Oximetry 94 94 Intake/Output Intake/Output: Intake & Output 07/24/20 07/25/20 07/26/20 07/27/20 23:59 23:59 23:59 23:59 Intake Total 1980 2360 1440 740 Output Total 2458 1080 505 Balance -478 1280 935 740 Meds/Results Medications: Active Medications Generic Name Dose Route Start Last Admin Trade Name Freq PRN Reason Stop Dose Admin Hydrocodone Bitart/Acetaminophen 1 tab 07/21/20 15:43 07/24/20 20:12 [place] 5-325 Mg PO 1 tab Q6H PRN Administration Pain Rated 4-6 Albuterol 2 puff 07/23/20 14:08 07/25/20 01:20 Proventil Hfa INHALATION 2 puff QIDRT PRN Administration Shortness Of Breath Diphenhydramine HCl 25 mg 07/21/20 15:43 Benadryl Cap PO Q6H PRN Itching Docusate Sodium 100 mg 07/22/20 09:00 07/27/20 08:17 Colace Capsule PO Not Given Q12HR MARIA VICTORIA Piperacillin/Tazobactam/Dextrose 3.375 gm in 50 mls @ 100 mls/hr 07/24/20 12:00 07/27/20 11:52 Zosyn 3.375 Gm/D5w 50ml Pm IVPB 100 mls/hr Q6HR MARIA VICTORIA Administration Ibuprofen 600 mg 07/21/20 15:43 07/23/20 03:41 Motrin PO 600 mg Q6H PRN Administration Pain Rated 1-3 Levothyroxine Sodium 88 mcg 07/22/20 06:30 07/27/20 05:59 Synthroid PO 88 mcg DAILY@0630 MARIA VICTORIA Administration Liothyronine Sodium 5 mcg 07/22/20 09:00 07/27/20 08:16 Cytomel PO 5 mcg Q12HR MARIA VICTORIA Administration Morphine Sulfate 4 mg 07/21/20 15:43 Morphine Sulfate Inj (*Crx) IV PUSH Q4H PRN Pain Rated 7-10 Naloxone HCl 0.1 mg 07/21/20 15:43 Narcan IV PUSH Q5MIN PRN Opioid Reversal Ondansetron HCl 4 mg 07/22/20 10:21 07/26/20 00:12 Zofran Inj IV PUSH 4 mg Q6H PRN Administration Nausea And Vomiting Polyethylene Glycol 17 gm 07/22/20 07:13 Miralax PO QAM PRN Constipation Saccharomyces Boulardii 250 mg 07/25/20 17:00 07/27/20 08:16 Florastor PO 250 mg BID MARIA VICTORIA Administration Sertraline HCl 50 mg 07/22/20 09:00 07/27/20 08:17 Zoloft PO 50 mg DAILY MARIA VICTORIA Administration Radiology Results: ITS Impressions Chest X-Ray 07/22/20 15:05 Impression: 1: Bibasilar airspace disease, compatible with pneumonia. Catheter Placement CT 07/22/20 15:19 IMPRESSION: 1. Successful CT-guided pelvic abscess drainage catheter placement. 2. 50 mL fluid was sent for aerobic and anaerobic cultures. 3. The catheter will be managed by Dr. Yoder. Abdomen/Pelvis CT 07/26/20 14:41 IMPRESSION: 1. Pelvic drain in position within collapsed abscess cavity. 2. Development of small to moderate pleural effusions, bibasilar segmental atelectasis. 3. Colonic fluid. 4. Liver surface undulations, can't exclude cirrhosis. Labs Labs: Laboratory Results - last 24 hr 07/26/20 07/27/20 07/27/20 13:44 05:06 05:06 WBC 10.5 H RBC 3.30 L Hgb 10.2 L Hct 30.8 L MCV 93.3 MCH 30.9 MCHC 33.1 RDW 14.0 Plt Count 368 MPV 10.2 Immature Gran % (Auto) 13.6 H Neut % (Auto) 56.7 Lymph % (Auto) 19.1 [place] % (Auto) 8.0 Eos % (Auto) 2.2 Baso % (Auto) 0.4 Lymph # (Auto) 2.01 [place] # (Auto)
[2020-07-27 14:00] VITALS: BP 110/72; PULSE 68; RESP 16; TEMP 36.6; O2SAT 97
--- NOTE | 2020-07-27 18:44 | CONS_ITS ---
DATE OF CONSULTATION: 07/27/2020 REASON FOR CONSULTATION: Postop abscess. HISTORY OF PRESENT ILLNESS: A 45-year-old female who underwent a robotic-assisted hysterectomy at [facility], [place] on July 12. She has had a previous BTL and also previous fibroid resection. The most recent surgery was for the same reason of fibroids. She was discharged the following day, on no antibiotics. She began feeling ill 4 days prior to admission, although did have persistent pelvic pain even on postop day #1. On the , she developed subjective fever, never actually took her temperature. Also chills without rigors and sweats. She also had increasing pain in the pelvis with radiation elsewhere into the abdomen, worse with trying to empty her bladder. She did have some urinary hesitancy and a sensation of incomplete bladder emptying. She thinks she had vaginal discharges while being treated before admission, seen in the office and admitted on the . She has been on piperacillin, now day #7 of antibiotics. She received no antibiotics prior to the present admission. She has had loose to liquid bowel movements on several occasions the last 2 days. Her pain is somewhat improved, but not resolved. She has had no further chills. She denies previous postoperative infection. HABITS: No tobacco. No alcohol to excess. PRESENT MEDICATIONS: List reviewed. ALLERGIES: PROPOXYPHENE. PAST MEDICAL HISTORY: Graves's disease with total thyroidectomy, BTL, left bundle branch block. FAMILY HISTORY: Not pertinent to present illness. SOCIAL HISTORY: She is . 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 Has a son, who required several months of IV antibiotics at home in the past for staphylococcal infection of his femur. He is now well. REVIEW OF SYSTEMS: Constitutional, skin, respiratory, GI, , business integration analyst, otherwise negative. PHYSICAL EXAMINATION: GENERAL: This is a middle-aged female appears her actual age, in no distress. VITAL SIGNS: Afebrile since arrival, 110/62, 66, 16, 94% on room air. SKIN: Warm and dry. No rashes. A few ecchymoses over her arms, consistent with phlebotomy. EENT: Pupils equal, round, and reactive to light. Oropharynx, oral mucosa normal. NECK: No masses, thyromegaly, tenderness. LUNGS: Clear to auscultation and percussion. BACK: No CVAT. CARDIAC: Regular rate and rhythm. No murmur, gallop, or rub. Pulses are 2+. ABDOMEN: Protuberant, but not distended. Bowel sounds are rare. Normal pit. No masses. Tender in the suprapubic area without guarding. No organomegaly. EXTREMITIES: Trace ankle edema. LABORATORY DATA: Fluid culture from the aspirate, 07/22/2020 has revealed Clostridium species and Bacteroides. Blood cultures, no growth after 6 days incubation and urine culture final no growth. C. diff assay collected yesterday nonreactive. White count 10.5 with 17.6 on admission, has been stable on recent days. Hemoglobin 10.2, also stable. Platelets are 368. Differential, 14% bands on automated differential. She has a normal chemistry panel today after having mild hyponatremia earlier. Alkaline phosphatase 147, albumin is 2.8. Her urinalysis, multiple abnormalities suggesting contamination. Hepatitis panel nonreactive. Stool guaiac negative. RADIOLOGY: Initial pelvic CT 07/21/2020, suggested pelvic abscess, colonic stool, gallbladder distention. This a fluid collection was 10 x 12 cm, has now been drained with a followup CT demonstrating collapse of the abscess cavity. ASSESSMENT: 1. Robotic-assisted hysterectomy, 07/12/2020. 2. Postoperative surgical site infection with deep abscess, now drained postop day 4. She is on appropriate antibiotics for the above as well as suspected pathogens. The isolated pathogens are typical for uterine taylor
[2020-07-27 20:00] VITALS: RESP 18; O2SAT 97
[2020-07-27 22:00] VITALS: BP 108/65; PULSE 66; RESP 18; TEMP 36.6; O2SAT 97
[2020-07-28 06:00] VITALS: BP 105/68; PULSE 65; RESP 18; TEMP 36.5; O2SAT 96
[2020-07-28] MEDS: LEVOTHYROXINE SODIUM 88 MCG TABLET PO (06:01)
[2020-07-28 06:07] LABS: Basophils Absolute Auto 0.1 K/mm3 (0.0-0.1); Basophils Percent Auto 0.4 % (0.2-1.2); Eosinophils Absolute Auto 0.3 K/mm3 (0-0.3); Eosinophils Percent Auto 2.3 % (0-4.4); Hematocrit 32.8 % (37.0-47.0); Hemoglobin 10.6 g/dL (12.0-15.0); Lymphocytes Absolute Auto 2.46 K/mm3 (0.9-3.2); Lymphocytes Percent Auto 21.4 % (18.3-44.2); Mean Corpuscular HGB Conc 32.3 g/dl (32-36); Mean Corpuscular Hemoglobin 30.2 pg (26-34); Mean Corpuscular Volume 93.4 fl (80-100); Mean Platelet Volume 10.4 fl (7.4-10.4); Monocytes Absolute Auto 0.9 K/mm3 (0.1-0.6); Monocytes Percent Auto 7.6 % (2.6-8.5); Neutrophils Absolute Auto 6.4 K/mm3 (1.3-6.7); Neutrophils Percent Auto 55.3 % (45.5-73.1); Platelet Count Result 402 k/mm3 (150-375); Red Blood Count 3.51 M/mm3 (4.2-5.4); Red Cell Distribution Width 13.8 % (11.5-14.5); White Blood Count 11.5 K/mm3 (4.5-10.0)
[2020-07-28] MEDS: SACCHAROMYCES BOULARDII 250 MG CAPSULE PO (08:11)
[2020-07-28] MEDS: SERTRALINE HCL 50 MG TABLET PO (08:11)
[2020-07-28] MEDS: LIOTHYRONINE SODIUM 5 MCG TABLET PO (08:11)
--- NOTE | 2020-07-28 10:51 | PM.IMPN ---
Progress Note: A&P Assessment and Plan (1) Sepsis: Code(s): A41.9 - Sepsis, unspecified organism Status: Acute Assessment and Plan: Present on admission and supported by tachycardia, leukocytosis, and acute kidney injury in the setting of an intraabdominal abscess infection and pneumonia. Lactic acid levels within normal limits and blood pressures are stable. Final blood cultures show no growth. (2) Pelvic abscess: Status: Acute Assessment and Plan: CT abd/pelvis demonstrated a large pelvic abscess status post hysterectomy on 07/12/2020. LABORER ELECTROPLATING is on board. She is s/p percutaneous drain 07/22/20. Aerobic culture demonstrates clostridium and preliminary anaerobic culture demonstrates bacteroides sp, not B fragilis, with final sensitivities pending. Final blood cultures show no growth. CT abd/pelvis was repeated 07/26 and demonstrated collapsed abscess cavity. Drain output has decreased. She is tolerating PO intake well and feels much better with no abdominal pain, nausea, vomiting. Infectious disease consult appreciated. Prolonged IV antibiotics are not anticipated. Drain management, post-op care, and disposition per LABORER ELECTROPLATING. (3) Pneumonia: Code(s): J18.9 - Pneumonia, unspecified organism Status: Resolved Assessment and Plan: CXR demonstrated bibasilar opacities. She received IV zosyn which she is on for abdominal abscess (day 8). She is asymptmotaic from this standpoint. (4) Acute kidney injury: Code(s): N17.9 - Acute kidney failure, unspecified Status: Resolved Assessment and Plan: Resolved. Etiology likely multifactorial including poor oral intake, NSAID use, and possible ATN from sepsis. Continue to monitor BMP daily. Encourage PO fluid intake. (5) Post-surgical hypothyroidism: Code(s): E89.0 - Postprocedural hypothyroidism Status: Chronic Assessment and Plan: TSH was normal. Continue levothyroxine and liothyronine. (6) Diarrhea: Code(s): R19.7 - Diarrhea, unspecified Status: Acute Assessment and Plan: Improving. She reported frequent, yellow, and watery stool. Stool cultures were ordered. C. diff, cryptosporidium, E. coli shiga toxins, WBC, and giardia are negative. Campylobacter and salmonella/shigella are still pending. Continue florastor. She is on IV zosyn for intra-abdominal abscess. Await further stool cultures. Stools are more formed today. (7) Nausea: Code(s): R11.0 - Nausea Status: Resolved Assessment and Plan: Resolved. She is tolerating PO intake well. (8) Abnormal finding on CT scan: Code(s): R93.89 - Abnormal findings on diagnostic imaging of other specified body structures Status: Acute Assessment and Plan: CT abd/pelvis demonstrated liver surface undulations and radiologist noted cirrhosis cannot be excluded. ALP is elevated at 147. Hepatitis panel was negative. She reports no known hx of liver disease. She denies alcohol use. She will need to follow-up with her PCP outpatient and consider GI referral. Subjective Date/time seen: 07/28/20 10:51 Interval history: Interval history: Mrs. Shukla is a 45 y.o. female who is s/p robotic assisted laparoscopic total hysterectomy with bilateral salpingectomy on 07/12/20 complicated by pelvis abscess. She is s/p CT guided drainage and drain placement. CXR demonstrated pneumonia and she is on IV zosyn empirically for the abscess and pneumonia. Fluid cultures shows bacteroides sp (not B fragilis) and clostridium sp. ID has been consulted for antibiotic guidance. CT abd/pelvis was repeated on 07/26 and showed that the abscess has collapsed down. She is feeling much better today. She is tolerating a regular diet without nausea and vomiting. Her stools are brown, less frequent, and more formed. She denies subjective fever and chills. She denies dyspnea, chest pain, and cough. She denies abdominal melody
--- NOTE | 2020-07-28 12:41 | PM.GYNPNOP ---
SENIOR FINANCIAL REPORTING ANALYST - A/P Assessment and plan (1) Pelvic abscess: Status: Acute Assessment and Plan: Drain in place, still having consistent output of about 60mls/day. Fluid culture shows bacteroides (not fragilis) and clostridium, currently on Zosyn. ID has been consulted. CT scan on 07/26 shows that abscess has collapsed down Drain with minimal output, drain was pulled at bedside. Will DC home on Augmentin for total of 2 weeks of antibiotics (2) Acute kidney injury: Code(s): N17.9 - Acute kidney failure, unspecified Status: Resolved Assessment and Plan: Resolved. (3) Pneumonia: Code(s): J18.9 - Pneumonia, unspecified organism Status: Resolved Assessment and Plan: Hospitalist service following, appreciate recs. (4) Post-surgical hypothyroidism: Code(s): E89.0 - Postprocedural hypothyroidism Status: Chronic (5) Diarrhea: Code(s): R19.7 - Diarrhea, unspecified Status: Acute Assessment and Plan: C. diff negative Resolved Postoperative Procedures: Procedures Operation Date: 07/22/20 14:00 <No data on this case meets the specified criteria> Time Spent With Patient Time: Total time spent is greater than 50% in coordination of care (as documented) at patient's floor/unit and/or counseling patient: Time with patient: 15 - 25 minutes SENIOR FINANCIAL REPORTING ANALYST- PN:Subj Post-Op Subjective Date/time seen: 07/28/20 12:41 Interval history: Interval history: Mrs. Shukla is a 45 y.o. female who is s/p robotic assisted laparoscopic total hysterectomy with bilateral salpingectomy on 07/12/20 complicated by pelvis abscess. She is s/p CT guided drainage and drain placement. CXR demonstrated pneumonia and she is on IV zosyn empirically for the abscess and pneumonia. Fluid cultures shows bacteroides sp (not B fragilis) and clostridium sp. ID has been consulted for antibiotic guidance. CT abd/pelvis was repeated on 07/26 and showed that the abscess has collapsed down. She states she is feeling better today. Tolerating regular diet and diarrhea has improved and having formed stools. Drain output is slowing down. Denies fevers, chills, pain, nausea, vomiting. Exam Const: General: comfortable, no acute distress, alert and awake Orientation/consciousness: oriented to person, oriented to place and oriented to time GI: Other: Drain in place and draining minimal brown purulent fluid Skin: General skin exam: normal color Neuro: General: oriented to person, oriented to place and oriented to time Psych: Mental Status: mental status grossly normal Affect: normal affect SENIOR FINANCIAL REPORTING ANALYST - PN: Obj Data Vital Signs Vital Signs: Vital Signs - 24 hr 07/27/20 14:00 07/27/20 20:00 07/27/20 22:00 Temperature 36.6 C 36.6 C Pulse Rate 68 66 Respiratory Rate 16 18 18 Blood Pressure 110/72 108/65 Pulse Oximetry 97 97 97 07/28/20 06:00 Temperature 36.5 C Pulse Rate 65 Respiratory Rate 18 Blood Pressure 105/68 Pulse Oximetry 96 Intake/Output Intake/Output: Intake & Output 07/25/20 07/26/20 07/27/20 07/28/20 23:59 23:59 23:59 23:59 Intake Total 2360 1440 2120 940 Output Total 1080 505 590 15 Balance 7046 537 4983 925 Meds/Results Medications: Active Medications Generic Name Dose Route Start Last Admin Trade Name Freq PRN Reason Stop Dose Admin Hydrocodone Bitart/Acetaminophen 1 tab 07/21/20 15:43 07/24/20 20:12 Ethel 5-325 Mg PO 1 tab Q6H PRN Administration Pain Rated 4-6 Albuterol 2 puff 07/23/20 14:08 07/25/20 01:20 Proventil Hfa INHALATION 2 puff QIDRT PRN Administration Shortness Of Breath Diphenhydramine HCl 25 mg 07/21/20 15:43 Benadryl Cap PO Q6H PRN Itching Docusate Sodium 100 mg 07/22/20 09:00 07/28/20 08:10 Colace Capsule PO Not Given Q12HR MARIA VICTORIA Piperacillin/Tazobactam/Dextrose 3.375 gm in 50 mls @ 100 mls/hr 07/24/20 12:00 07/28/20 11:23 Zosyn 3.375 Gm/D5w 50ml Pm IVPB 100 mls/hr Q6HR MARIA VICTORIA Administr
--- NOTE | 2020-07-28 13:01 | PM.DS ---
DS: Admitting Diagnosis Admitting Diagnosis Admitting Diagnosis: Pelvic Abscess DS: Discharge Diagnosis Discharge Diagnosis (1) Pelvic abscess: Status: Resolved (2) Pneumonia: Code(s): J18.9 - Pneumonia, unspecified organism Status: Resolved (3) CARISA (acute kidney injury): Code(s): N17.9 - Acute kidney failure, unspecified Status: Resolved (4) Diarrhea: Code(s): R19.7 - Diarrhea, unspecified Status: Resolved DS: Summary Hospital Course Reason for hospitalization: Post operative pelvic abscess Hospital Course: Patient underwent robotic assisted total laparoscopic hysterectomy and bilateral salpingectomy on 07/12 at [facility]. Presented on POD#9 with worsening abdominal pain and distension. CT scan showed a large pelvic abscess. She was admitted to the hospital and IV Zosyn was started. She also had elevated WBC and Cr. Acute kidney injury secondary to infection. The hospitalist team was consulted for medical management. A CT guided drain was placed on hospital Day#2. Initial drainage over the first 24 hours was approximately 600mls. Over the next couple of days, her condition improved and CARISA resolved. Drain output was approximately 60mls/day. Urine and blood Cx were negative. Abscess fluid culture showed bacteroides and clostridium. ID was consulted for antibiotic guidance. She then developed a mild productive cough, a CXR showed evidence of pneumonia. IV antibiotics were continued. She also developed diarrhea, likely due to the antibiotics. C. diff toxin was negative. Her condition continued to improve. The drain output decreased to 30mls/day. On hospital day #7, drain output was minimal, diarrhea resolved, and cough resolved. She states she felt much better. The drain was removed at bedside. Stable for discharge home with augmentin. Time Spent with Patient Time attestation: Total time spent providing and/or coordinating discharge services: Time spent: Greater than 30 minutes Exam Const: General: comfortable, no acute distress, alert and awake Orientation/consciousness: oriented to person, oriented to place and oriented to time GI: GI Palp: Yes Soft to palpation Other: Drain removed at bedside prior to discharge Skin: General skin exam: normal color Neuro: General: oriented to person, oriented to place and oriented to time Psych: Mental Status: mental status grossly normal Affect: normal affect DS: Data Data Completed and Pending Labs on day of discharge: Labs from last 24 hours 07/28/20 05:36 WBC 11.5 H RBC 3.51 L Hgb 10.6 L Hct 32.8 L MCV 93.4 MCH 30.2 MCHC 32.3 RDW 13.8 Plt Count 402 H MPV 10.4 Immature Gran % (Auto) 13.0 H Neut % (Auto) 55.3 Lymph % (Auto) 21.4 [place] % (Auto) 7.6 Eos % (Auto) 2.3 Baso % (Auto) 0.4 Lymph # (Auto) 2.46 [place] # (Auto) 0.9 H Eos # (Auto) 0.3 Baso # (Auto) 0.1 Abs Immat Gran (auto) 1.50 H Absolute Neuts (auto) 6.4 Absolute Nucleated RBC 0.0 Nucleated RBC % 0.0 Preliminary micro results at discharge 07/22/20 13:56 Anaerobic Culture - Preliminary Abdomen Bacteroides sp, not B fragilis Discharge Plan Discharge Attending physician on discharge: Ryann Yoder Consulting providers: Krystal Paiz ; Davidson Randolph ; Leatha Fiore ; Yao Tate Discharging Clinician: Ryann Yoder Patient Disposition: Home, Self-Care Activity: may shower, as tolerated and pelvic rest Diet: regular Discharge Instructions: May shower Keep dressing until clinic follow up, if peeling and coming off on it's own then ok to remove after 3 days Follow up in clinic in 1 week Hospitalist Discharge Instructions Your CT showed possible liver abnormality and one of your liver enzymes was elevated. You will need to repeat labs in 1 week to check your blood counts and liver enzymes. You will need to follow-up with your primary care doctor and discuss possible referral to GI. Lopez
--- NOTE | 2020-07-28 13:18 | PCDIET ---
Weekly nutritional screen. Patient is tolerating current diet, regular which is appropriate, with adequate intake, 75-100% of all meals. No weight loss reported. No nutritional needs at this time.
--- NOTE | 2020-07-28 13:23 | WPDINFPN2 ---
Progress Note: A&P Assessment and Plan (1) Pelvic abscess in female: Onset Date: 07/17/20 Code(s): N73.9 - Female pelvic inflammatory disease, unspecified Status: Acute Assessment and Plan: 1. Deep SSI after hysterectomy, ding well 2. Antibiotic associated loose BMs, no C diff. probiotics appropriate after discharge REC PipTazo #5, can stop and place on Augmentin x 5 days. Discussed. Home ok. Subjective Date/time seen: 07/28/20 13:23 Interval history: bms soft but no true diarrhea. Happy to have drain out Exam Narrative: Exam Narrative: afebrile Const: General: no acute distress Eyes: General: appearance normal, both eyes and all related structures Resp: Effort & Inspection: normal respiratory effort Auscultation: clear to auscultation bilaterally Cardio: Rate: regular rate Rhythm: regular rhythm Heart sounds: Gallop heart sound present GI: Inspection: non-distended GI Palp: Yes Soft to palpation, No Tenderness to palpation present (GI) and No Guarding due to palpation present (GI) Percussion: Yes normal to percussion Objective Data Vital Signs Vital Signs: Vital Signs - 24 hr 07/27/20 14:00 07/27/20 20:00 07/27/20 22:00 Temperature 36.6 C 36.6 C Pulse Rate 68 66 Respiratory Rate 16 18 18 Blood Pressure 110/72 108/65 Pulse Oximetry 97 97 97 07/28/20 06:00 Temperature 36.5 C Pulse Rate 65 Respiratory Rate 18 Blood Pressure 105/68 Pulse Oximetry 96 Intake/Output Intake/Output: Intake & Output 07/25/20 07/26/20 07/27/20 07/28/20 23:59 23:59 23:59 23:59 Intake Total 2360 1440 2120 1300 Output Total 1080 505 590 15 Balance 6582 363 9968 1285 Meds/Results Medications: Active Medications Generic Name Dose Route Start Last Admin Trade Name Freq PRN Reason Stop Dose Admin Hydrocodone Bitart/Acetaminophen 1 tab 07/21/20 15:43 07/24/20 20:12 Hancock 5-325 Mg PO 1 tab Q6H PRN Administration Pain Rated 4-6 Albuterol 2 puff 07/23/20 14:08 07/25/20 01:20 Proventil Hfa INHALATION 2 puff QIDRT PRN Administration Shortness Of Breath Amoxicillin/Clavulanate Potassium 1 tablet 07/28/20 14:00 Augmentin 500-125 Mg Tab PO 08/02/20 14:01 Q8HR MARIA VICTORIA Diphenhydramine HCl 25 mg 07/21/20 15:43 Benadryl Cap PO Q6H PRN Itching Docusate Sodium 100 mg 07/22/20 09:00 07/28/20 08:10 Colace Capsule PO Not Given Q12HR [facility] Ibuprofen 600 mg 07/21/20 15:43 07/23/20 03:41 Motrin PO 600 mg Q6H PRN Administration Pain Rated 1-3 Levothyroxine Sodium 88 mcg 07/22/20 06:30 07/28/20 06:01 Synthroid PO 88 mcg DAILY@0630 [facility] Administration Liothyronine Sodium 5 mcg 07/22/20 09:00 07/28/20 08:11 Cytomel PO 5 mcg Q12HR [facility] Administration Morphine Sulfate 4 mg 07/21/20 15:43 Morphine Sulfate Inj (*Crx) IV PUSH Q4H PRN Pain Rated 7-10 Naloxone HCl 0.1 mg 07/21/20 15:43 Narcan IV PUSH Q5MIN PRN Opioid Reversal Ondansetron HCl 4 mg 07/22/20 10:21 07/26/20 00:12 Zofran Inj IV PUSH 4 mg Q6H PRN Administration Nausea And Vomiting Polyethylene Glycol 17 gm 07/22/20 07:13 Miralax PO QAM PRN Constipation Saccharomyces Boulardii 250 mg 07/25/20 17:00 07/28/20 08:11 Florastor PO 250 mg BID MARIA VICTORIA Administration Sertraline HCl 50 mg 07/22/20 09:00 07/28/20 08:11 Zoloft PO 50 mg DAILY MARIA VICTORIA Administration Radiology Results: ITS Impressions Chest X-Ray 07/22/20 15:05 Impression: 1: Bibasilar airspace disease, compatible with pneumonia. Catheter Placement CT 07/22/20 15:19 IMPRESSION: 1. Successful CT-guided pelvic abscess drainage catheter placement. 2. 50 mL fluid was sent for aerobic and anaerobic cultures. 3. The catheter will be managed by Dr. Yoder. Abdomen/Pelvis CT 07/26/20 14:41 IMPRESSION: 1. Pelvic drain in position within collapsed abscess cavity. 2. Development of small
[2020-07-28] MEDS: AMOXICILLIN/CLAVULANATE K 500-125 MG TAB 1 TABLET PO (13:59)
[2020-08-01 12:03] LABS: Mitochondrial (M2) Ab (IgG) <=20.0 U (<=20.0)
== END 2020-07-28 14:25 | disposition home or self-care (01) | DRG 862 ==
LOC: ANHED 10:19 → ANH3MEDSUR 13:09
PROVIDERS: Obstetrics & Gynecology; Physician Assistant; Admitting Provider Obstetrics & Gynecology; Emergency Provider Emergency Medicine; PCP Internal Medicine; Visit Provider Obstetrics & Gynecology
DX: T81.43XA Infection following a procedure, organ and space surgical site, initial encounter (principal); J18.9 Pneumonia, unspecified organism; A41.89 Other specified sepsis; J95.89 Other postprocedural complications and disorders of respiratory system, not elsewhere classified; N17.8 Other acute kidney failure; I48.19 Other persistent atrial fibrillation; K52.1 Toxic gastroenteritis and colitis; T81.44XA Sepsis following a procedure, initial encounter; T36.8X5A Adverse effect of other systemic antibiotics, initial encounter; N73.8 Other specified female pelvic inflammatory diseases; B96.89 Other specified bacterial agents as the cause of diseases classified elsewhere; F41.9 Anxiety disorder, unspecified; E87.6 Hypokalemia; E89.0 Postprocedural hypothyroidism; D50.9 Iron deficiency anemia, unspecified; I44.7 Left bundle-branch block, unspecified; F32.9 Major depressive disorder, single episode, unspecified; Z90.79 Acquired absence of other genital organ(s); Z90.710 Acquired absence of both cervix and uterus
CPT/HCPCS: 36415; 71046; 74177; 75989; 80048; 80053; 80074; 80076; 81001; 82274; 83520; 83605; 83690; 83735; 84443; 85014; 85018; 85025; 85027; 85610; 85730; 86038; 87015; 87040; 87045; 87046; 87070; 87075; 87076; 87077; 87086; 87088; 87205; 87269; 87272; 87324; 87427; 89055; 94640; 94667; 99285; A9270; C1729; C1769; J2405; J2543; J3010; J3475; J7030; Q9967

== ENCOUNTER 2020-08-04 13:56 | Outpatient (CLI) | payer BC, SELFPAY ==
[2020-08-04 14:46] LABS: Hematocrit 37.9 % (37.0-47.0); Hemoglobin 12.7 g/dL (12.0-15.0); Mean Corpuscular HGB Conc 33.5 g/dl (32-36); Mean Corpuscular Hemoglobin 31.2 pg (26-34); Mean Corpuscular Volume 93.1 fl (80-100); Mean Platelet Volume 10.5 fl (7.4-10.4); Platelet Count Result 514 k/mm3 (150-375); Red Blood Count 4.07 M/mm3 (4.2-5.4); Red Cell Distribution Width 13.9 % (11.5-14.5); White Blood Count 7.4 K/mm3 (4.5-10.0)
[2020-08-04 14:58] LABS: Alanine Aminotransferase 15 U/L (4-35); Albumin Level 4.3 g/dL (3.5-5.1); Alkaline Phosphatase 94 U/L (38-126); Anion Gap 10 mmol/L (8-16); Aspartate Amino Transferase 23 U/L (14-36); Bilirubin,Total 0.8 mg/dL (0.2-1.3); Blood Urea Nitrogen 21 mg/dL (7-17); Calcium 9.9 mg/dL (8.4-10.2); Carbon Dioxide 27 mmol/L (22-30); Chloride 103 mmol/L (98-107); Estimated Glomerular Filt Rate > 60; Glucose 100 mg/dL (65-105); Potassium 4.1 mmol/L (3.4-5.0); Sodium 140 mmol/L (137-145)
== END 2020-08-04 13:57 | disposition home or self-care (01) ==
LOC: ANHLAB 13:57
PROVIDERS: PCP Internal Medicine; Visit Provider Physician Assistant
DX: R74.8 Abnormal levels of other serum enzymes (principal)
CPT/HCPCS: 36415; 80053; 85027

== ENCOUNTER → 2021-07-18 02:33 | Outpatient (CLI) | payer BC, SELFPAY ==
[2021-07-18 20:47] LABS: SARS-CoV-2 RNA PCR Negative
== END ==
PROVIDERS: PCP Nurse Practitioner Family; Visit Provider Family Medicine
DX: Z20.822 Contact with and (suspected) exposure to COVID-19 (principal)
CPT/HCPCS: C9803; U0003; U0005

== ENCOUNTER 2025-01-17 15:13 | Emergency (ER) | payer BC, SELFPAY ==
--- NOTE | ~2025-01-17 | CT_ITS ---
EXAMINATION: CT brain wo con DATE: 01/17/2025 17:58 INDICATION: pop in head and neck . TECHNIQUE: Computed tomography (CT) of the head was performed without intravenous contrast. The mA wa s adjusted according to patient size. Iterative reconstruction technique was employed. The dose-lengt h product was 605.33 mGy-cm. COMPARISON: MRI brain 05/26/2018. FINDINGS: No acute intracranial hemorrhage or extra-axial fluid collection. No hydrocephalus, mass, or herniation. No acute ischemic infarct. Unremarkable dural venous sinus attenuation. No acute osseous abnormality. The aerated spaces are clear. IMPRESSION: No acute intracranial process. Reviewed, dictated and finalized at location K.
--- NOTE | ~2025-01-17 | CT_ITS ---
EXAMINATION: CT cervical spine wo con DATE: 01/17/2025 17:58 INDICATION: pop in head and neck TECHNIQUE: Computed tomography (CT) of the cervical spine was performed without intravenous contrast. Automated exposure control and iterative reconstruction technique were employed. The dose-length pro duct was 299.57 mGy-cm. COMPARISON: None. FINDINGS: Vertebral Body Alignment: Intact. Craniocervical and atlantoaxial alignment: Mild degenerative change. Alignment intact. Osseous structures/fracture: No evidence of a lytic or blastic process in the visualized spine. No e vidence of acute fracture. Cervical soft tissues: The paraspinal soft tissues planes are maintained. Status post thyroidectomy. Mild septal thickening at the lung apices. Mosaic attenuation in the lung apices. Degenerative changes: No significant degenerative changes. IMPRESSION: No acute fracture or traumatic malalignment in the cervical spine. Mosaic attenuation in the lung apices which can be seen with asthma, bronchiolitis obliterans, hypers ensitivity pneumonitis, and chronic thromboembolic disease. Reviewed, dictated and finalized at location K. IMPRESSION: No acute fracture or traumatic malalignment in the cervical spine. Mosaic attenuation in the lung apices which can be seen with asthma, bronchioli tis obliterans, hypersensitivity pneumonitis, and chronic thromboembolic diseas e.
--- OUTSIDE RECORDS SUMMARY | 2025-01-17 15:15 | XMS_ITS | Clinical Summary ---
Author Organization [facility] Address [address] [place] [address] Phone Care Team Providers Care Architectural Representative Name Role Phone Brigitte Agrawal MD Primary Care Provider Allergies Active Allergy Reactions Criticality Noted Date Comments Propoxyphene Unknown Propylthiouracil Unknown Medications LEVOTHYROXINE SODIUM PO Take by mouth. Active CALCIUM-VITAMIN D PO Take by mouth. Active IRON PO Take by mouth. Active Active Problems Problem Noted Date Diagnosed Date Vitamin D deficiency Anemia Goiter Social History Tobacco Use Types Packs/Day Years Used Date Smoking Tobacco: Never Smokeless Tobacco: Never Alcohol Use Standard Drinks/Week Comments Not Currently 0 (1 standard drink = 0.6 oz pur e alcohol) AUDIT-C Answer Date Recorded Q1: How often do you have a drink containing alc ohol? Never 12/04/2020 Average Number of Drinks Not on file 021 Frequency of Binge Drinking Not on file 11/06 Comments Unknown Sex and Gender Information Value Date Recorded Sex Assigned at Female 01/20/2024 11:17 AM CDT Legal Sex Female 11:14 PM CDT Gender Identity Female 01/20/2024 11:17 AM CDT Sexual Orientation Not on file Last Filed Vital Signs Vital Sign Reading Time Taken Comments Blood Pressure 118/74 12/04/2020 4:07 PM ASSEMBLER FITTER Pulse 67 12/04/2020 4:07 PM ASSEMBLER FITTER Temperature 36.3 C (97.4 F) 12/04/2020 4:07 PM ASSEMBLER FITTER Respiratory Rate 16 12/04/2020 4:07 PM ASSEMBLER FITTER Oxygen Saturation 97% 12/04/2020 4:07 PM ASSEMBLER FITTER Inhaled Oxygen Concentration - - Weight 74.8 kg (165 lb) 12/04/2020 4:07 PM ASSEMBLER FITTER Height 157.5 cm (5' 2 ) 12/04/2020 4:07 PM ASSEMBLER FITTER Body Mass Index 30.18 12/04/2020 4:07 PM ASSEMBLER FITTER Plan of Treatment Health Maintenance Due Date Last Done Comments Hepatitis C Virus (HCV) Screening 1975 TdaP Immunization 1975 Hepatitis B Immunization (1 of 3 - 19+ 3-dose series) 01/18/1995 Colonoscopy 01/18/2021 Colorectal Cancer Screening 01/18/2021 Influenza Immunization (#1) 2024 SARS-COV-2 Immunization ( season) 2024 Mammogram 12/19/2024 12/19/2023 Respiratory Syncytial Virus (RSV) Immunization (Adult) (1 - 1-dose 75+ series) 01/18/2051 Discussion re Starting/Frequency of Mammograms Completed 01/20/2024, 12/19/2023 Meningococcal Immunization (ACWY) Aged Out No longer eligible b ased on patient's age to complete this topic Pneumococcal Immunization Combined Aged Out No longer eligible b ased on patient's age to complete this topic Rotavirus Immunization Aged Out No lo nger eligible based on patient's age to complete this topic Procedures Procedure Name Priority Date/Time Associated Diagnosis Comments OZZY DIAG LEFT UNILATERAL DIGITAL W CAD W MARLA Routine 01/20/2024 2:26 PM CDT Abnormal findings on diagnostic imaging of breast OZZY SCREENING BILATERAL DIGITAL W CAD W MARLA Routine 12/19/2023 1:15 PM ASSEMBLER FITTER Visit for screening mammogram from Last 3 Months or Most Recently Relevant to Health Maintenance Results * OZZY DIAG LEFT UNILATERAL DIGITAL W CAD W MARLA (01/20/2024 2:26 PM CDT) Anatomical Region Laterality Modality breast Left Mammography 01/20/2024 1:43 PM CDT Narrative 01/20/2024 3:40 PM CDT - OZZY DIAG LEFT UNILATERAL DIGITAL W CAD W MARLA - OZZY US BREAST LIMITED LT UNILATERAL LEFT DIGITAL DIAGNOSTIC MAMMOGRAM 3D/2D WITH CAD WITH MEDIOLATERAL MEDIOLATERAL OBLIQUE CRANIOCAUDAL SPOT COMPRESSION AND TARGETED LEFT ULTRASOUND: 01/20/2024 The study was acquired using digital technology and interpreted from soft copy. Current study was also evaluated with ICAD version 7.2. 2D digital mammographic views, as well as 3D digital tomosynthesis were performed in the CC and MLO projections. CLINICAL: Diagnostic study. Patient returns for additional imaging over a suspected mass in the left breast. COMPARISONS: Comparison is made to exam dated: 12/19/2023 [facility]. BREAST TISSUE:The tissue of left breast is heterogeneously dense. This may lower the sensitivity of mammography. FINDINGS: Diagnostic left mammogram spot compression cc, spot compression MLO and full field 90 degree tomographic images were performed. The focal asymmetry noted on the screening study is identifiable on additional images. There is no spiculation or suspicious microcalcifications. Targeted left breast ultrasound Targeted left breast ultrasound was performed in the region of interest. At the 12 o'clock position 3 cm from the nipple is an oval anechoic circumscribed cyst measuring 1.0 x 0.9 x 0.5 cm. There is posterior acoustical enhancement. There is no evidence of color flow. This correlates with the mammographic finding and is benign. IMPRESSION: OVERALL STUDY BIRADS: 2 BENIGN Simple cyst at the 12 o'clock position of the left breast is benign. There is no mammographic or sonographic evidence of malignancy. A 1 year screening mammogram is recommended. The results and recommendations were discussed with the patient. Electronically signed by: Yvonne Peñaloza M.D. ab/:01/20/2024 14:59:50 Senior Coldfusion Developer(s): RT Willa(R)(M), [facility]; DES Arrington, [facility] letter sent: Normal Exam Reading location: [facility] OVERALL STUDY BIRADS: 2 Benign Procedure Note Yvonne Peñaloza MD - 01/20/2024 - OZZY DIAG LEFT UNILATERAL DIGITAL W CAD W MARLA - OZZY US BREAST LIMITED LT UNILATERAL LEFT DIGITAL DIAGNOSTIC MAMMOGRAM 3D/2D WITH CAD WITH MEDIOLATERAL MEDIOLATERAL OBLIQUE CRANIOCAUDAL SPOT COMPRESSION AND TARGETED LEFT ULTRASOUND: 01/20/2024 The study was acquired using digital technology and interpreted from soft copy. Current study was also evaluated with ICAD version 7.2. 2D digital mammographic views, as well as 3D digital tomosynthesis were performed in the CC and MLO projections. CLINICAL: Diagnostic study. Patient returns for additional imaging over a suspected mass in the left breast. COMPARISONS: Comparison is made to exam dated: 12/19/2023 [facility]. BREAST TISSUE:The tissue of left breast is heterogeneously dense. This may lower the sensitivity of mammography. FINDINGS: Diagnostic left mammogram spot compression cc, spot compression MLO and full field 90 degree tomographic images were performed. The focal asymmetry noted on the screening study is identifiable on additional images. There is no spiculation or suspicious microcalcifications. Targeted left breast ultrasound Targeted left breast ultrasound was performed in the region of interest. At the 12 o'clock position 3 cm from the nipple is an oval anechoic circumscribed cyst measuring 1.0 x 0.9 x 0.5 cm. There is posterior acoustical enhancement. There is no evidence of color flow. This correlates with the mammographic finding and is benign. IMPRESSION: OVERALL STUDY BIRADS: 2 BENIGN Simple cyst at the 12 o'clock position of the left breast is benign. There is no mammographic or sonographic evidence of malignancy. A 1 year screening mammogram is recommended. The results and recommendations were discussed with the patient. Electronically signed by: Yvonne Peñaloza M.D. ab/:01/20/2024 14:59:50 Senior Coldfusion Developer(s): RT Willa(R)(M), [facility]; DES Arrington, [facility] letter sent: Normal Exam Reading location: [facility] OVERALL STUDY BIRADS: 2 Benign us Brigitte Agrawal MD [facility] MAMMO ORDERABLES Final Res ult * OZZY SCREENING BILATERAL DIGITAL W CAD W MARLA (12/19/2023 1:15 PM ASSEMBLER FITTER) Anatomical Region Laterality Modality breast Bilateral Mammography 12/19/2023 1:37 PM ASSEMBLER FITTER Narrative 12/23/2023 11:26 AM ASSEMBLER FITTER - OZZY SCREENING BILATERAL DIGITAL W CAD W MARLA BILATERAL DIGITAL SCREENING MAMMOGRAM 3D/2D WITH CAD WITH MEDIOLATERAL OBLIQUE CRANIOCAUDAL: 12/19/2023 The study was acquired using digital technology and interpreted from soft copy. Current study was also evaluated with ICAD version 7.2. 2D digital mammographic views, as well as 3D digital tomosynthesis were performed in the CC and MLO projections. CLINICAL: New baseline. Routine screening. Patient has no complaints. She is sensitive to compression. No personal history of cancer. No family history of breast cancer. COMPARISONS: No prior exams were available for comparison. BREAST TISSUE:The tissue of both breasts is heterogeneously dense. This may lower the sensitivity of mammography. FINDINGS: There is a mass in the left breast at 12 o'clock middle depth. No other significant masses, calcifications, or other findings are seen in either breast. IMPRESSION: BI-RAD 0 ADDITIONAL IMAGING EVALUATION NEEDED The mass in the left breast needs additional evaluation. An immediate follow-up is recommended. A letter will be sent to the patient with these results. Electronically signed by: Diana merrill/herminia:12/20/2023 16:49:59 Senior Coldfusion Developer(s): RT Cristofer(R)(M), [facility] letter sent: Additional Imaging Reading location: [facility] BI-RADS: 0 Additional Imaging Evaluation Needed Procedure Note Diana Carrillo MD - 12/23/2023 - OZZY SCREENING BILATERAL DIGITAL W CAD W MARLA BILATERAL DIGITAL SCREENING MAMMOGRAM 3D/2D WITH CAD WITH MEDIOLATERAL OBLIQUE CRANIOCAUDAL: 12/19/2023 The study was acquired using digital technology and interpreted from soft copy. Current study was also evaluated with ICAD version 7.2. 2D digital mammographic views, as well as 3D digital tomosynthesis were performed in the CC and MLO projections. CLINICAL: New baseline. Routine screening. Patient has no complaints. She is sensitive to compression. No personal history of cancer. No family history of breast cancer. COMPARISONS: No prior exams were available for comparison. BREAST TISSUE:The tissue of both breasts is heterogeneously dense. This may lower the sensitivity of mammography. FINDINGS: There is a mass in the left breast at 12 o'clock middle depth. No other significant masses, calcifications, or other findings are seen in either breast. IMPRESSION: BI-RAD 0 ADDITIONAL IMAGING EVALUATION NEEDED The mass in the left breast needs additional evaluation. An immediate follow-up is recommended. A letter will be sent to the patient with these results. Electronically signed by: Diana merrill/herminia:12/20/2023 16:49:59 Senior Coldfusion Developer(s): RT Cristofer(R)(M), [facility] letter sent: Additional Imaging Reading location: [facility] BI-RADS: 0 Additional Imaging Evaluation Needed Brigitte Agrawal MD IMG MAMMO ORDERABLES Final Res ult from Last 3 Months or Most Recently Relevant to Health Maintenance Insurance [facility] Care Teams Architectural Representative Relationship Specialty Start Date End Date Brigitte Agrawal MD [address] [place] [id number] PCP - General Family Medicine 10/08/23
--- OUTSIDE RECORDS SUMMARY | 2025-01-17 15:15 | XMS_ITS | Encounter Summary ---
Author Organization [facility] Address [address] [place] [address] Phone Care Team Providers Care Warpman Name Role Phone Brigitte Agrawal MD Primary Care Provider [phone] Encounter Details Date Type Department Care Team (Late st Contact Info) Description 12/26/2023 Transcribe Orders [facility] Central Scheduling [address] [place] [id number] Brigitte Agrawal MD [address] [place] [address] [address] [place] [address] Social History Tobacco Use Types Packs/Day Years [...] AM CDT Sexual Orientation Not on file documented as of this encounter Plan of Treatment Not on file documented as of this encounter Visit Diagnoses Not on filedocumented in this encounter Care Teams Warpman Relationship Specialty Start Date End Date Brigitte Agrawal MD [address] [place] [address] PCP - General Family Medicine 10/08/23 documented as of this encounter
--- OUTSIDE RECORDS SUMMARY | 2025-01-17 15:15 | XMS_ITS ---
Author Organization [facility] Address [address] [place] [address] Care Team Providers Care Vending Machine Servicer Name Role Florina Garcia Primary Care Provider [phone] REASON FOR VISIT refill Medications Medication SIG (Take, Route, Fr equency, Duration) Notes Start Date End Date Status Estradiol 0.05 MG/24HR 1 patch to skin T ransdermal Two times a Week for 90 days 10/24/2024 Act ledy Encounters Encounter Location Date Provider Diagnosis [facility] - Florina Walters [address] [place] [address] 10/23/2024 Florina Walters Menopausal and femal e climacteric states N95.1 Assessments Encounter Date Diagnosis (ICD Code) Assessment Notes Treatment Notes Treatment Clinical Notes Section Notes 10/23/2024 Menopausal and female climacteric states (ICD-10 - N95.1) Plan Of Treatment Medication Medication Name Sig Start Date Stop Date Notes Estradiol 0.05 MG/24HR 1 patch to skin T ransdermal Two times a Week for 90 days 10/24/2024 Next Appt Details Provider Name:Florina Walters, 12:50:00 PM, [address], [place], [address], Progress Notes * KIN MonroeChang:1975 (49 yo F)Acc No.[id number]:10/23/2024 Patient: Jo ANGEL :1975 A ge:49 Y S ex:Female Address:[address] [place] [address], [place] [address] * Refills Start Estradiol Patch Twice Weekly, 0.05 MG/24HR, Transdermal, 24, 1 patch to skin, Two times a Week, 90 days, Refills=3 Subjective: * Chief Complaints: * R efill * Medical History: * Surgical History: * Hospitalization/Major Diagno stic Procedure: * Medications: Objective: * Vitals: * Physical Examination: Assessment: * Assessment: 1. M enopausal and female climacteric states - N95.1 (Primary) Plan: * Treatment: * Procedure Codes: * true * Date: Generated for Yolanda mead/Rajani/Sagrariosmitting on: 0 01/17/2025 03:15 PM CDT
--- OUTSIDE RECORDS SUMMARY | 2025-01-17 15:16 | XMS_ITS | Patient Health Record ---
Author Organization [facility] [employer] [facility] Address [address] [address] Care Team Providers Care Eyewear Consultant Name Role Phone Florina Walters Primary Care Provider [phone] Migration, Provider Unavailable Unavailable Allergies No Known Allergies Reason For Referral Reason needs colonoscopy Referral Organization [facility], [facility] - Florina Walters Referring Provider First Name Florina Referring Provider Last Name Romeo Referring Provider Speciality Internal M edicine Referred Provider Specialty Gastroentero logy Referral Priority Routine Medications Medication SIG (Take, Route, Frequency, Duration) Notes Start Date End Date Status Lyllana 0.05 MG/24 HOURS TWICE WEEKLY 1 PATCH TRANSDERMALLY 2 TIMES A WEEK for 90 DAYS *Please review and pick correct strength-formulat ion from [employer] options. If intended option is not shown, discontinue and re-order from Quick Search* 06/16/2024 Unknown Dodex 1000 MCG/ML inject 1 cc subcutaneously once a week for 90 days 04/16/2024 Active Liothyronine Sodium 5 MCG 1 tab(s) orally once a day for 90 days 07/03/2024 Unknown Yuvafem 10 MCG 1 tab(s) intravaginally 2 times a week for 90 days 04/16/2024 Active busPIRone HCl 10 MG 1 tab(s) orally 2 times a day for 90 days 04/16/2024 Active Vitamin D (Ergocalciferol) 1.25 MG (93605 UT) 1 cap(s) orally once a week for 90 days 04/16/2024 Active Wellbutrin XL 150 MG 1 tab(s) orally every 24 hours for 90 days 07/03/2024 Unknown Estradiol 0.05 MG/24HR 1 PATCH transdermally 2 times a week for 90 days 04/16/2024 Unknown Cetirizine HCl 10 MG 1 tab(s) orally once a day for 90 days 07/03/2024 Unknown Estradiol 0.05 MG/24HR 1 patch to skin Transdermal Two times a Week for 90 days 10/24/2024 Active Unithroid 88 MCG TAKE 1 TABLET BY MOUTH DAILY for 90 Active Problems Problem Type SNOMED Code ICD Code Onset Dates Problem Status W/U Status Risk Notes Problem Vitamin D deficiency (56113670) Vitamin D deficiency, unspecified (E55.9) Active confirmed Problem Hypothyroidism (03182757) Hypothyroidism, unspecified (E03.9) Active confirmed Problem Seasonal allergic rhinitis (444740763) Other seasonal allergic rhinitis (J30.2) Active confirmed Problem Obesity (199024771) Obesity, unspecified (E66.9) Active confirmed Problem Generalized anxiety disorder (14475821) Generalized anxiety disorder (F41.1) Active confirmed Problem Menopause (688845814) Menopausal and female climacteric states (N95.1) Active confirmed Vital Signs Heart Rate 71 /min 10/09/2024 Blood pressure diastolic 76 mm Hg 10/09/2024 Height 62 in 10/09/2024 Blood pressure systolic 113 mm Hg 10/09/2024 Weight 177.0 lbs 10/09/2024 BMI 32.37 kg/m2 10/09/2024 Encounters Encounter Location Date Provider Diagnosis [facility] [employer], [facility] - [employer] [address] [place] [address] 07/03/2024 Florina Househappy Hypothyroidism, unspecified E03.9 ; Menopausal and female climacteric states N95.1 ; Vitamin D deficiency, unspecified E55.9 ; Generalized anxiety disorder F41.1 and Other seasonal allergic rhinitis J30.2 [facility] [employer] [address] [place] [address] 10/09/2024 Florina Wood Hypothyroidism, unspecified E03.9 ; Menopausal and female climacteric states N95.1 ; Vitamin D deficiency, unspecified E55.9 and Obesity, unspecified E66.9 [facility] [id number] [place] [address] 09/19/2024 Provider Migration Hypothyroidism, unspecified E03.9 ; Menopausal and female climacteric states N95.1 ; Generalized anxiety disorder F41.1 and Other seasonal allergic rhinitis J30.2 [facility], [facility] - Florina Househappy [address] [place] [address] 04/16/2024 Florina Walters Hypothyroidism, unspecified E03.9 ; Menopausal and female climacteric states N95.1 ; Encounter for screening for malignant neoplasm of colon Z12.11 ; Other fatigue R53.83 ; Vitamin D deficiency, unspecified E55.9 and Generalized anxiety disorder F41.1 [facility] [id number] [place] [address] 04/06/2024 Florina Walters [facility] [address] [address] 04/09/2024 Florina Walters [facility], [facility] Florina Househappy [address] [place] [address] 06/16/2024 Florina Walters Menopausal and female climacteric states N95.1 [facility], [facility] Florina Househappy [id number] [place] [address] 07/17/2024 Florina Walters Menopausal and female climacteric states N95.1 [facility] [address] [address] 10/09/2024 Florina Walters [facility], [facility] Florina Househappy [address] [place] [address] 10/23/2024 Florina Walters Menopausal and female climacteric states N95.1 [facility], [facility] Florina Househappy [address] [place] [address] 11/02/2024 Florina Walters Assessments Encounter Date Diagnosis (ICD Code) Assessment Notes Treatment Notes Treatment Clinical Notes Section Notes 07/03/2024 Hypothyroidism, unspecified (ICD-10 - E03.9) continue unithroid 88 mcg daily and add T3 5 mcg in afternoon as patient having fatigue and low normal T3 levels. She is aware to take with water only to wait one hour for food/meds or other fluids. 07/03/2024 Menopausal and female climacteric states (ICD-10 - N95.1) Estradiol in ideal range and progesterone levels are in ideal range- continue on estradiol patch twice weekly along with vagifem estradiol cream. 10/09/2024 Hypothyroidism, unspecified (ICD-10 - E03.9) 10/09/2024 Menopausal and female climacteric states (ICD-10 - N95.1) 09/19/2024 Hypothyroidism, unspecified (ICD-10 - E03.9) 09/19/2024 Menopausal and female climacteric states (ICD-10 - N95.1) 04/16/2024 Hypothyroidism, unspecified (ICD-10 - E03.9) FT4 low normal range- will uptitrate and transition to unithroid 88 mcg daily. She is aware to take with water and wait one hour to have food,meds etc. 04/16/2024 Menopausal and female climacteric states (ICD-10 - N95.1) She had partial hysterectomy 4 years ago- she is having vaginal dryness and mood lability- her estrogen is low normal range but I would not advise oral therapy at this time - will trial on estradiol vaginal cream twice weekly and 0.05 estradiol patch twice weekly to help regulate her levels. 06/16/2024 Menopausal and female climacteric states (ICD-10 - N95.1) 07/17/2024 Menopausal and female climacteric states (ICD-10 - N95.1) 10/23/2024 Menopausal and female climacteric states (ICD-10 - N95.1) 07/03/2024 Vitamin D deficiency, unspecified (ICD-10 - E55.9) Recommended vitamin D 3 4000 IU daily as goal vit D of 50 ng/mL to optimize bone and immune health. 10/09/2024 Vitamin D deficiency, unspecified (ICD-10 - E55.9) 04/16/2024 Encounter for screening for malignant neoplasm of colon (ICD-10 - Z12.11) Send for screening colonoscopy- GI referral provided. 07/03/2024 Generalized anxiety disorder (ICD-10 - F41.1) add wellbutrin 150 mg once daily as she is having continued depression- she has successfully weaned off sertraline- this does cause weight gain- she has had 6 pound weight gain since initial visit- wellbutrin is weight neutral and used for weight loss. Continue on buspar for anxiety as she feels this has helped to a small degree. 10/09/2024 Obesity, unspecified (ICD-10 - E66.9) 09/19/2024 Generalized anxiety disorder (ICD-10 - F41.1) 04/16/2024 Other fatigue (ICD-10 - R53.83) WIll send for thyroid antibodies to screen for autoimmune thyroid disease in adition to CBC, CMP, ferritin, vit D and B12/folate to screen for other potential secondary causes of fatigue. Likely due to vitamin D and B12 def. Have refilled her medications. 07/03/2024 Other seasonal allergic rhinitis (ICD-10 - J30.2) trial on cetirizine 10 mg daily and discussed nasal lavages to help reduce congestion. 09/19/2024 Other seasonal allergic rhinitis (ICD-10 - J30.2) 04/16/2024 Vitamin D deficiency, unspecified (ICD-10 - E55.9) Start on vitamin D 50 once weekly for 30 days then every other week during summer and weekly during fall/winter months to maintain goal of 50 ng/mL to optimize bone and immune health. Patient aware of plan and recommendations. 04/16/2024 Generalized anxiety disorder (ICD-10 - F41.1) Recommend patient wean off sertraline slowly over next 6-8 weeks as she has had over 20 pound weight gain on SSRI therapy and she doesn't really see a difference in taking this- having anxiety regularly- recommend she start on buspar 10 mg twice daily in intermin as this is more weight neutral. She and are back together and things are better at home she is in a better place and wants to regulate and optimize her medications and hormone therapy along with symptoms of fatigue, weight gain etc. 04/16/2024 Other Spent 60 minute s preparing to see the patient (ex review of tests/chart), obtaining and / or reviewing separately obtained history, performing a medically appropriate examination and/or evaluation, counseling and educating the patient/family/hearing care professional, ordering medications, tests, or procedures, referring and communicating with other health child care team lead, documenting clinical information in the electronic or other health record, independently interpreting results and communicating results to the patient/family/hearing care professional and care coordinating patient plan. Patient alert and oriented x 4 and aware of discussion noted above and in agreeance to plan in management of hypothyroidism, menopause, vitamin deficiencies and anxiety disorder. 07/03/2024 Other Spent 25 minute s preparing to see the patient (ex review of tests/chart), obtaining and / or reviewing separately obtained history, performing a medically appropriate examination and/or evaluation, counseling and educating the patient/family/hearing care professional, ordering medications, tests, or procedures, referring and communicating with other health child care team lead, documenting clinical information in the electronic or other health record, independently interpreting results and communicating results to the patient/family/hearing care professional and care coordinating patient plan. Patient alert and oriented x 4 and aware of discussion noted above and in agreeance to plan in management of hypothyroidism, menopausal changes, LUKE and fatigue. 10/09/2024 Other Assessment and Plan: 1. Thyroid function:- Pending T4 lab results- Currently on Unithroid 88 in the morning and liothyronine (T3) in the afternoonPlan:- Review T4 results when available and adjust medication if necessary- Continue current thyroid medication regimen 2. Anemia:- Normal MCV and blood counts- Patient taking B12 supplementsPlan:- Continue B12 supplementation to maintain normal MCV and blood counts 3. Hyperlipidemia:- Cholesterol levels are outstandingPlan:- No changes needed, continue current management 4. Weight management:- Slight weight increase- Patient inquired about a gluten-free dietPlan:- Discuss potential benefits of a gluten-free diet for thyroid patients and weight loss- Encourage healthy lifestyle choices and regular exercise 5. Hormone replacement therapy:- Estrogen and progesterone levels are steadyPlan:- Continue current hormone replacement therapy 6. Joint pain:- Achy joints, particularly fingers, knees, and ankle- Left ankle instability, right knee soreness- History of fall due to ankle giving outPlan:- Consider referral to a electronics technician for further evaluation and management- Recommend [id number] pain relievers as needed for joint pain 7. Magnesium supplementation:- Patient reports improvement with magnesium glycinate and chelated magnesium- Request for additional magnesium supplementsPlan:- Provide patient with additional magnesium glycinate and chelated magnesium as requested 8. Bowel movements:- Patient reports using Metamucil a couple of times a week for regularityPlan:- Encourage continued use of Metamucil as needed for bowel regularity Spent 25 minutes preparing to see the patient (ex review of tests/chart), obtaining and / or reviewing separately obtained history, performing a medically appropriate examination and/or evaluation, counseling and educating the patient/family/hearing care professional, ordering medications, tests, or procedures, referring and communicating with other health child care team lead, documenting clinical information in the electronic or other health record, independently interpreting results and communicating results to the patient/family/hearing care professional and care coordinating patient plan. Patient alert and oriented x 4 and aware of discussion noted above and in agreeance to plan in management of hypothyroidism, menopausal changes, vit D def, obesity/weight management. Plan Of Treatment Next Appt Details Provider Name:Florina Walters, 12:50:00 PM, [address], [place], [address], Insurance Providers Payer Name Payer Address Payer Phone Subscriber Number Group Number Insured Name Patient Relationship to Insured Coverage Start Date Coverage End Date [facility] [address] [place] [address] [id number] Jo Shukla Self - patient is the insured Medical (General) History Medical History History ICD Code THYROID Surgical History Surgery Date(Month/Year) partial hysterectomy
--- OUTSIDE RECORDS SUMMARY | 2025-01-17 15:16 | XMS_ITS | Data Portability ---
Author Organization [facility] Neha Vazquez Address [address] [place] [address] Care Team Providers Care Weeder Name Role Phone BRIGITTE BARKLEY Primary Care Provider [phone] Assessment Encounter Date Assessment Date Assessment LastModified by Organization Details LastModified Time 07/16/2023 07/16/2023 preventative recommendations BMI screening HTN screening LUKE/DM screening pap testing mammogram now or starting at age 50 tdap vaccine flu shot in fall [email or web address] Not available 07/16/2023 14:48:40 Plan of Treatment Reminders Order Date Submit Date Provider Last Modified By Organization Details Last Modified Time Details Appointments None recorded. Lab TSH, ultra-sen sitive, serum 2023 024 KALAMAZOO [facility], [address], [place], [address], 4 08:24:11 CBC w/ auto diff 2023 024 ANDREA [facility], [address], [place], [address], 4 06:19:08 vitamin B12 + folate, serum or blood 2023 024 ANDREA [facility], [address], [place], [address], 4 17:09:36 TSH, ultra-sen sitive, serum 2023 024 ANDREA [facility], [address], [place], [address], 4 17:09:36 HbA1c (hemoglob in A1c), blood 2022 023 [facility], [address], [place], [address], 3 15:09:47 lipid panel, serum 2022 023 [facility], [address], [place], [address], 3 09:20:55 TSH, ultra-sen sitive, serum 2022 023 [facility], [address], [place], [address], 3 15:09:46 HIV 1 + 2, meaningfu l use set 2022 023 [facility], [address], [place], [address], 3 15:09:49 RPR (rapid plasma reagin), serum 2022 023 [facility], [address], [place], [address], 3 15:09:49 vaginal pathogens panel, MIRIAN+probe , vaginal fluid 2022 023 [facility], [address], [place], [address], 3 15:09:45 HBsAg (hepatiti s B surface Ag), EIA, serum 2022 023 [facility], [address], [place], [address], 3 15:09:48 Hepatitis C IgG Ab, qual, serum 2022 023 ANDREA [facility], [address], [place], [address], 3 15:09:45 Referral physical therapist referral [address] [facility], [address], [address], [place], [address], 4 09:04:32 Procedures None recorded. Surgeries None recorded. Imaging MAMMO, screening , digital, bilateral 2022 023 ANDREA [facility]) Scheduling, 2 [facility], [place], [address], 4 12:29:29 Medication Orders cyanocoba noble (vit B-12) 1,000 mcg/mL injection solution 2023 024 [facility], [address], [place], [place], [id number], 4 11:51:38 fluticaso ne propionat e 50 mcg/actua tion nasal spray,carmine pension 2023 024 KALAMAZOO [facility] #61078, [address], [place], [place], [id number], 4 16:52:32 levothyro xine 88 mcg tablet 2023 024 [facility], [address], [place], [place], [id number], 4 11:52:04 sertralin e 100 mg tablet 2023 024 [facility], [address], [place], [place], [id number], 4 09:29:04 cyanocoba noble (vit B-12) 1,000 mcg/mL injection solution 2023 [facility] #78312, [address], [place], [place], [id number], 4 11:51:38 fluticaso ne propionat e 50 mcg/actua tion nasal spray,carmine pension [address] [facility] #56222, [address], [place], [place], [id number], 4 13:11:19 cetirizin e 10 mg tablet [address] [place] [address] [facility]24264, [address], [place], [place], [id number], 4 09:28:37 ibuprofen 600 mg tablet 2023 024 [facility], [address], [place], [place], [id number], 4 13:11:21 levothyro xine 88 mcg tablet 2023 024 [facility] #50058, [address], [place], [place], [id number], 4 11:52:04 liothyron ine 5 mcg tablet [address] [facility] #49863, [address], [place], [place], [id number], 4 13:11:23 sertralin e 100 mg tablet [address] [facility] #29322, [address], [place], [place], [id number], 13:11:23 Patient TargetsNo targets recorded. Patient Instructions Encounter Date Encounter Id Patient Instructions Last Modified By Organization Details Last Modified Time 07/16/2023 [id number] A healthy lifestyle: care instructions [email or web address] Not available 07/16/2023 15:10:28 11/08/2023 [id number] A healthy lifestyle: care instructions [email or web address] Not available 11/10/2023 01:36:42 On the date of this encounter, I saw and examined the patient, personally verifying the guo and critical findings in the resident s note. I reviewed and agree with the resident/fellow s findings and plan. MD Arlette [email or web address] Not available 11/12/2023 00:08:41 12/12/2023 [id number] A healthy lifestyle: care instructions [email or web address] Not available 12/12/2023 16:52:25 Attending Physician Attestation I did not personally see or examine the patient with the resident. I was physically present to provide indirect supervision through entire encounter. I have reviewed the documentation and agree with the history, physical findings, work-up, and medical decision making as recorded. Tessy Carrillo MD [email or web address] Not available 12/12/2023 16:49:26 01/29/2024 [id number] A healthy lifestyle: care instructions [email or web address] Not available 01/29/2024 12:31:44 Attending Physician Addendum I did not personally see or examine the patient with the resident. I was physically present to provide indirect supervision through entire encounter. I have reviewed the documentation and agree with the history, physical findings, work-up, and medical decision making as recorded. Amanda Villela MD [email or web address] Not available 02/03/2024 16:15:12 Reason for Referral Physical Therapist Referral for Sciatica Referring Physician: Brigitte Barkley Final Touch Up Painter, Encounter Date: 11/08/2023 Results Created Date Observation Date Name Description Value Unit Range Abnormal Flag Note LastModifiedBy Organization Detail LastModifiedTime 07/16/20 23 07/17/2023 LIPID PANEL cholesterol, total 160 mg/dL 100-19 9 Not Available [facility] ([facility]) [address] [facility], [place], [address], 07/17/2023 09:20:55 07/16/2007/17/2023 LIPID PANEL triglyceride s 157 mg/dL 0-149 above high normal Not Available [facility] ([facility]) [address] [place], [address], 07/17/2023 09:20:55 07/16/20 23 07/17/2023 LIPID PANEL HDL cholesterol 53 mg/dL >39 Not Available [facility]) [address] [place], [address], 07/17/2023 09:20:55 07/16/20 23 07/17/2023 LIPID PANEL VLDL cholesterol hany 27 mg/dL 5-40 Not Available [facility]) [address] [place], [address], 07/17/2023 09:20:55 07/16/2007/17/2023 LIPID PANEL LDL chol calc ([facility]) 80 mg/dL 0-99 Not Available [facility] ([facility]) [address] [place], [address], 07/17/2023 09:20:55 07/16/2007/17/2023 HCV ANTIB ASHLEE RFX TO QUANT PCR HCV Ab Non Reacti ve nonrea ctive Not Available [facility] ([facility]) [address] [place], [address], 07/19/2023 15:09:45 07/16/20 23 07/18/2023 NUSWA B VAGIN ITIS PLUS (VG+) atopobium vaginae High - 2 score abnormal Not Available [facility] ([facility]) [address] [place], [address], 07/19/2023 15:09:45 07/16/20 23 07/18/2023 NUSWA B VAGIN ITIS PLUS (VG+) bvab 2 Low - 0 score Not Available [facility] ([facility]) [address] [facility], [place], [address], 07/19/2023 15:09:45 07/16/20 23 07/18/2023 NUSWA B VAGIN ITIS PLUS (VG+) megasphaera 1 Low - 0 score Calcu late total score by liliana cohen the 3 indiv idual bacte rial vagin osis (BV) marke r score s toget her. Total score is inter prete d as follo ws: Total score 0-1: Indic ates the absen ce of BV. Total score 2: Indet ermin ate for BV. Addit ional clini hany data shoul d be evalu ated to estab altagracia a diagn osis. Total score 3-6: Indic ates the prese nce of BV. This test was devel oped and its perfo rmanc e judson cteri stics deter mined by [facility]. It has not been clear ed or appro mihir by the Food and Drug Admin istra tion. Not Available [facility] ([facility]) [address] [facility], [place], [address], 07/19/2023 15:09:45 07/16/20 23 07/18/2023 NUA B VAGIN ITIS PLUS (VG+) trich vag by MIRIAN Negati ve negati ve Not Available [facility] ([facility]) [address] [place], [address], 07/19/2023 15:09:45 07/16/20 23 07/18/2023 NUA B VAGIN ITIS PLUS (VG+) chlamydia trachomatis, MIRIAN Negati ve negati ve Not Available [facility] ([facility]) [address] [facility], [place], [address], 07/19/2023 15:09:45 07/16/20 23 07/18/2023 NUSWA B VAGIN ITIS PLUS (VG+) neisseria gonorrhoeae, MIRIAN Negati ve negati ve Not Available [facility] ([facility]) [address] [place], [address], 07/19/2023 15:09:45 07/16/2007/19/2023 NUSWA B VAGIN ITIS PLUS (VG+) colleen albicans, MIRIAN Positi ve negati ve abnormal Not Available [facility] ([facility]) [address] [place], [address], 07/19/2023 15:09:45 07/16/20 23 07/19/2023 NUSWA B VAGIN ITIS PLUS (VG+) colleen glabrata, MIRIAN Negati ve negati ve Not Available [facility] ([facility]) [address] [facility], [place], [address], 07/19/2023 15:09:45 07/16/2007/17/2023 TSH RFX ON ABNOR MAL TO FREE T4 TSH 0.177 uIU/m L 0.450- 4.500 below low normal Not Available [facility] ([facility]) [address] [place], [address], 07/19/2023 15:09:46 07/16/2007/17/2023 HEMOG LOBIN A1C hemoglobin A1C 5.0 % 4.8-5. 6 Predi abete s: 5.7 - 6.4 Diabe swapnil: >6.4 Glyce nathan contr ol for adult s with diabe swapnil: <7.0 Not Available [facility] ([facility]) [address] [place], [address], 07/19/2023 15:09:47 07/16/2007/17/2023 HBSAG SCREE N HBsAg screen Negati ve negati ve Not Available [facility] ([facility]) [address] [place], [address], 07/19/2023 15:09:48 07/16/2007/17/2023 RPR, RFX QN RPR/C ONFIR M TP RPR Non Reacti ve nonrea ctive Not Available [facility] ([facility]) [address] [facility], [place], [address], 07/19/2023 15:09:48 07/16/20 23 07/17/2023 HIV AB/P2 4 AG WITH REFLE X HIV Ab/P24 Ag screen Non Reacti ve nonrea ctive HIV Negat ledy HIV-1 /HIV- 2 antib odies and HIV-1 p24 antig en were NOT detec toya. There is no labor atory evide nce of HIV infec tion. Not Available [facility] ([facility]) [address] [facility], [place], [address], 07/19/2023 15:09:49 07/16/20 23 07/17/2023 T4F T4,free (direct) 1.17 NG/dL 0.82-1 .77 Not Available [facility] ([facility]) [address] [facility], [place], [address], 07/19/2023 15:09:47 07/16/2007/17/2023 INTER PRETA TION: interpretati on: Commen t Not infec toya with HCV unles s early or acute infec tion is suspe cted (whic h may be delay ed in an immun ocomp romis ed indiv idual ), or other evide nce exist s to indic ate HCV infec tion. Not Available [facility] ([facility]) [address] [facility], [place], [address], 07/19/2023 15:09:44 12/12/1912/12/2023 CBC WITH DIFFE RENTI AL/PL ATELE T WBC 6.4 x10e3 /uL 3.4-10 .8 Not Available [facility] [address], [place], [address], 12/13/2023 06:19:08 12/12/19 24 12/12/2023 CBC WITH DIFFE RENTI AL/PL ATELE T RBC 4.10 x10e6 /uL 3.77-5 .28 Not Available [facility] [address] [place], [address], 12/13/2023 06:19:08 12/12/19 24 12/12/2023 CBC WITH DIFFE RENTI AL/PL ATELE T hemoglobin 12.8 g/dL 11.1-1 5.9 Not Available [facility] [address] [place], [address], 12/13/2023 06:19:08 12/12/19 24 12/12/2023 CBC WITH DIFFE RENTI AL/PL ATELE T hematocrit 39.0 % 34.0-4 6.6 Not Available [facility] [address] [place], [address], 12/13/2023 06:19:08 12/12/19 24 12/12/2023 CBC WITH DIFFE RENTI AL/PL ATELE T MCV 95 fL 79-97 Not Available [facility] [address] [place], [address], 12/13/2023 06:19:08 12/12/19 24 12/12/2023 CBC WITH DIFFE RENTI AL/PL ATELE T MCH 31.2 pg 26.6-3 3.0 Not Available [facility] [address] [place], [address], 12/13/2023 06:19:08 12/12/19 24 12/12/2023 CBC WITH DIFFE RENTI AL/PL ATELE T MCHC 32.8 g/dL 31.5-3 5.7 Not Available [facility] [address] [place], [address], 12/13/2023 06:19:08 12/12/19 24 12/12/2023 CBC WITH DIFFE RENTI AL/PL ATELE T RDW 12.8 % 11.5-1 4.5 Not Available [facility] [address] [place], [address], 12/13/2023 06:19:08 12/12/19 24 12/12/2023 CBC WITH DIFFE RENTI AL/PL ATELE T platelets 290 x10e3 /uL 150-45 0 Not Available [facility] [address] [place], [address], 12/13/2023 06:19:08 12/12/19 24 12/12/2023 CBC WITH DIFFE RENTI AL/PL ATELE T neutrophils 55 % notest b. Not Available [facility] [address] [place], [address], 12/13/2023 06:19:08 12/12/19 24 12/12/2023 CBC WITH DIFFE RENTI AL/PL ATELE T lymphs 31 % notest b. Not Available [facility] [address] [place], [address], 12/13/2023 06:19:08 12/12/19 24 12/12/2023 CBC WITH DIFFE RENTI AL/PL ATELE T monocytes 11 % notest b. Not Available [facility] [address] [place], [address], 12/13/2023 06:19:08 12/12/19 24 12/12/2023 CBC WITH DIFFE RENTI AL/PL ATELE T eos 3 % notest b. Not Available [facility] [address] [place], [address], 12/13/2023 06:19:08 12/12/19 24 12/12/2023 CBC WITH DIFFE RENTI AL/PL ATELE T basos 1 % notest b. Not Available [facility] [address] [place], [address], 12/13/2023 06:19:08 12/12/19 24 12/12/2023 CBC WITH DIFFE RENTI AL/PL ATELE T neutrophils (absolute) 3.5 x10e3 /uL 1.4-7. 0 Not Available [facility] [address] [place], [address], 12/13/2023 06:19:08 12/12/19 24 12/12/2023 CBC WITH DIFFE RENTI AL/PL ATELE T lymphs (absolute) 2.0 x10e3 /uL 0.7-3. 1 Not Available [facility] [address] [place], [address], 12/13/2023 06:19:08 12/12/19 24 12/12/2023 CBC WITH DIFFE RENTI AL/PL ATELE T monocytes(ab solute) 0.7 x10e3 /uL 0.1-0. 9 Not Available [facility] Department [address] [place] [address], [address], 12/13/2023 06:19:08 12/12/19 24 12/12/2023 CBC WITH DIFFE RENTI AL/PL ATELE T eos (absolute) 0.2 x10e3 /uL 0.0-0. 4 Not Available [facility] [address] [place], [address], 12/13/2023 06:19:08 12/12/19 24 12/12/2023 CBC WITH DIFFE RENTI AL/PL ATELE T baso (absolute) 0.0 x10e3 /uL 0.0-0. 2 Not Available [facility] [address] [place], [address], 12/13/2023 06:19:08 12/12/19 24 12/12/2023 CBC WITH DIFFE RENTI AL/PL ATELE T immature granulocytes 0.3 % notest b. Not Available [facility] [address] [place], [address], 12/13/2023 06:19:08 12/12/19 24 12/12/2023 CBC WITH DIFFE RENTI AL/PL ATELE T immature grans (abs) 0.0 x10e3 /uL 0.0-0. 1 Not Available [facility] [address] [place], [address], 12/13/2023 06:19:08 12/12/19 24 12/12/2023 CBC WITH DIFFE RENTI AL/PL ATELE T NRBC 0 % 0-0 Not Available [facility] [address] [place], [address], 12/13/2023 06:19:08 12/12/19 24 12/13/2023 VITAM IN B12 AND FOLAT E vitamin B12 1913 pg/mL 232-12 45 above high normal Not Available [facility] ([facility]) [address] [place], [address], 12/13/2023 17:09:36 12/12/19 24 12/13/2023 VITAM IN B12 AND FOLAT E folate (folic acid), serum >20.0 NG/mL >3.0 A serum folat e paulina ntrat ion of less than 3.1 ng/mL is consi dered to repre sent clini hany defic iency . Not Available [facility] ([facility]) [address] [place], [address], 12/13/2023 17:09:36 12/12/19 24 12/13/2023 TSH TSH 0.379 uIU/m L 0.450- 4.500 below low normal Not Available [facility] ([facility]) [address] [place], [address], 12/13/2023 17:09:36 01/29/20 24 01/30/2024 TSH TSH 0.788 uIU/m L 0.450- 4.500 Not Available [facility] ([facility]) [address] [place], [address], 01/30/2024 08:24:11 12/23/19 24 12/19/2023 MAMMO , scree kate, digit al, bilat eral No observ ation record ed. [email or web address] [facility] [address] [place], [address], 12/30/2023 11:47:24 01/20/20 24 01/20/2024 MAMMO , diagn ostic , tomos ynthe sis, unila teral No observ ation record ed. etodaroma [facility] [address] [place], [address], 01/24/2024 09:38:47 Result Notes None recorded. Problems Name Problem SNOMED Code Status Onset Date Resolution Date Notes Provider Name and Address Organization Details Recorded Time Mixed anxiety and depressive disorder 152414516 Active 2022 BRIGITTE BARKLEY MD Attn: Janelle cohen,[address] [place], [address], [facility] 3 19:18:27 Hypothyroidism 26318628 Active 2022 Iqra [facility] [place] [facility] 4 12:40:51 Overweight 736201425 Active 2022 BRIGITTE BARKLEY MD Attn: Janelle cohen,[address] [facility], [place], [address], [facility] - [facility] 3 19:19:23 Candidiasis of vagina 01062169 Active 2022 BRIGITTE BARKLEY MD Attn: Janelle cohen,[address] [place], [address], [facility] - [facility] 3 18:15:59 Bacterial vaginosis 650756455 Active 2022 BRIGITTE BARKLEY MD Attn: Janelle cohen,[address] [place], [address], [facility] 3 18:16:01 Problem Notes None recorded. Procedures Surgical History Date Name Laterality Status Provider Name and Address Organization Details Recorded Time 07/05/20 22 Date of Last Pap Smear completed Honey Best [place] [facility] 07/16/2023 14:07:47 07/05/20 20 Date of Last Mammogram completed Honey Best [place] [facility] 07/16/2023 14:08:18 07/05/20 20 Partial hysterectomy completed Honey Best [place] [facility] 07/16/2023 14:13:39 07/05/20 08 thyroidectomy completed Honey Best [place] [facility] 07/16/2023 14:12:55 Imaging Results Imaging Date Name Status LastModified by Organiz ation Details LastModified Time 12/19/2023 MAMMO, screening, digital, bilateral completed [email or web address] [address], [address], 12/30/2023 11:47:24 01/20/2024 MAMMO, diagnostic, tomosynthesis, unilateral completed etodaroma [address], [address], 01/24/2024 09:38:47 Procedure Notes None recorded. Medical Equipment None Reported. Allergies Allergen ID Allergen Name Allergen Category Reaction Reaction Severity Criticality Documentation Date Start Date Code Code System Note Provider Name and Address Organization Details Recorded Time 089555 Darvocet- N medicatio n hives mild low 07/16/20232009 89346 UNK Not Available Not Available Not Available Medications Name Sig Start Date Stop Date Status Note LastModified by Organization Details LastModified Time insulin syringe 31g x 5/16 1 ml mi insulin syringe 31g x 5/16 1 ml mi sc 01/28 completed Not Available Not Available Not Available cetirizine 10 mg tablet TAKE 1 TABLET BY MOUTH EVERY DAY active Not Available Not Available No t Available fluconazol e 150 mg tablet TAKE 1 TABLET BY MOUTH ONCE FOR 1 DOSE 11/08 completed Not Available Not Available Not Available sertraline 100 mg tablet TAKE ONE TABLET BY MOUTH EVERY DAY active Not Available Not Available No t Available phentermin e 15 mg capsule TAKE 1 CAPSULE BY MOUTH EVERY MORNING 11/08 completed Takes 30 mg as of 023 Not Available Not Available Not Available metronidaz ole 500 mg tablet TAKE 1 TABLET BY MOUTH EVERY 12 HOURS FOR 7 DAYS 11/08 completed Not Available Not Available Not Available liothyroni ne 5 mcg tablet TAKE 1 TABLET BY MOUTH EVERY DAY active Not Available Not Available No t Available levothyrox ine 75 mcg tablet TAKE 1 TABLET BY MOUTH EVERY DAY active Not Available Not Available No t Available levothyrox ine 88 mcg tablet TAKE 1 TABLET BY MOUTH EVERY DAY 01/28 completed Not Available Not Available Not Available cyanocobal almanza (vit B-12) 1,000 mcg/mL injection solution INJECT 1 ML BY SUBCUTANE OUS ROUTE EVERY MONTH 01/28 completed Not Available Not Available Not Available insulin syringe U-100 with needle 1 mL 31 gauge x 5/16 USE DIRECTED 01/28 completed Not Available Not Available Not Available ibuprofen 600 mg tablet TAKE 1 TABLET BY MOUTH THREE TIMES DAILY NEEDED active Not Available Not Available No t Available fluticason e propionate 50 mcg/actuat ion nasal spray,susp ension SHAKE LIQUID AND USE 1 SPRAY IN EACH NOSTRIL EVERY DAY active Not Available Not Available No t Available sertraline 50 mg tablet TAKE 1 TABLET BY MOUTH EVERY DAY 07/16 completed Not Available Not Available Not Available albuterol sulfate 2014 active Not Available Not Available Not Avai lable Flonase Allergy Relief 2014 active Not Available Not Available Not Avai lable Ozempic 0.25 mg or 0.5 mg (2 mg/1.5 mL) subcutaneo us pen injector INJECT 0.5MG UNDER THE SKIN EVERY WEEK AT DINNER 07/16 completed Not Available Not Available Not Available Vitals Date Recorded Body height Body mass index (BMI) Body weight Heart rate Body temperature Respiratory rate Oxygen saturation Oxygen saturation in Arterial blood by Pulse oximetry Systolic blood pressure Diastolic blood pressure Provider Name and Address Organization Details Last Updated DateTime 3 157.48 cm 27.4 kg/m2 49411.8 6 g 67 /min 98.1 [degF] 16 /min 100 % 100 % 112 mm[Hg] 68 mm[Hg] Honey Best [place] [facility] 3 14:00:29 Date Recorded Body height Body mass index (BMI) Body weight Body temperature Heart rate Provider Name and Address Organization Details Last Updated DateTime 11/08/2023 157.48 cm 29.4 kg/m2 88838.37 g 97.9 [degF] 60 /min Honey Best [place] [facility] 4 12:02:23 Date Recorded Body height Body mass index (BMI) Body weight Body temperature Heart rate Respiratory rate Systolic blood pressure Diastolic blood pressure Provider Name and Address Organization Details Last Updated DateTime 4 157.48 cm 30 kg/m2 35132.1 5 g 97.3 [degF] 58 /min 12 /min 110 mm[Hg] 71 mm[Hg] Honey Best [place] [facility] 4 16:21:49 Date Recorded Body height Body mass index (BMI) Body weight Body temperature Respiratory rate Oxygen saturation Oxygen saturation in Arterial blood by Pulse oximetry Heart rate Systolic blood pressure Diastolic blood pressure Provider Name and Address Organization Details Last Updated DateTime 157.48 cm 30.8 kg/m2 19268.9 2 g 97.3 [degF] 16 /min 98 % 98 % 61 /min 107 mm[Hg] 70 mm[Hg] Libby Saldivar [place] [facility] 4 11:51:15 Social History Question Answer Notes LastModified by Organizat ion Details LastModified Time Tobacco Smoking Status Never Smoker Honey Best MA null, [place] - [facility] 07/16/2023 14:10:41 What Is Your Level Of Alcohol Consumption? None Information not available 07/16/2023 In The 14 Days Before Symptom Onset, Have You Had Close Contact With A Laboratory-confir med COVID-19 While That Case Was Ill? No Information not available 07/16/2023 In The 14 Days Before Symptom Onset, Have You Had Close Contact With A Person Who Is Under Investigation For COVID-19 While That Person Was Ill? No Information not available 07/16/2023 Have You Been To An Area Known To Be High Risk For COVID-19? No Information not available 07/16/2023 Are You Currently Employed? Yes Information not available 07/16/2023 What Was The Date Of Your Most Recent Tobacco Screening? 01/29/2024 Information not available 01/29/2024 What Is Your Relationship Status? Information not available 07/16/2023 Are You Sexually Active? Yes Information not available 07/16/2023 Do You Have Smoke And Carbon Monoxide Detectors In Your Home? Yes Information not available 07/16/2023 Are You Passively Exposed To Smoke? Yes Sometimes When Aroud Her Dad Information not available 07/16/2023 Do You Use Any Illicit Or Recreational Drugs? No Information not available 07/16/2023 Has Tobacco Cessation Counseling Been Provided? No Information not available 01/29/2024 Do You Or Have You Ever Used Any Other Forms Of Tobacco Or Nicotine? No Information not available 07/16/2023 Sex: Female Functional Status None recorded. Mental Status None recorded. Family History Relationship Description Onset Age of this Age Resolved Age Notes LastModified by Organization Details LastModified Time Paternal Grandfather Family history of malignant neoplasm eemeryma Not available 2022 14:09:52 Paternal Grandmother Family history of malignant neoplasm eemeryma Not available 2022 14:09:52 Maternal Aunt Disorder of thyroid gland eemeryma Not available 2022 14:10:28 Father Malignant tumor of lung clouvierma Not available 01/28 11:53:01 Medical History Condition Response Coronary Artery Disease N Other N High Blood Pressure N Atrial Fibrillation N Kidney or Bladder Problems N Thyroid Problems N GI Problems N Depression N COPD N Blood Clots N Skin Problems N Anemia N Heart Attack ([place]) N Anxiety Disorder N Diabetes N Muscle, Joint, or Bone Problems N Seizures/Epilepsy N Acid Reflux (GERD) N Cancer N Stroke N Asthma N Allergies N High Cholesterol N Hepatitis N Liver Disease N Headaches N Heart Failure N Osteoporosis N Gynecological History Statement/Question Response Date of Last Pap Smear 07/05/2022 Current Control Method Hysterectom y Date of Last Mammogram 07/05/2020 Obstetrics History GPAL:G 2 P 2 0 0 2 Type Value Full Term 2 Living 2 Total 2 Past Encounters Encounter ID Performer Location Encounter Start Date Encounter Closed Date Diagnosis/Indication Diagnosis SNOMED-CT Code Diagnosis ICD10 Code Diagnosis Note [id number] MD Chayito Kearns 14 IM 4 [facility] Dr [address] [place], [place] [address], [place] [address] 07/16/2023 13:39:38 07/19/2023 13:56:50 Overweight 623951117 E66.3 Patient educated on healthy eating habits and exercise at least 30 mins per day. A diet comprised of four to five servings of fruit, four to five servings of vegetables , and two to three servings of low-fat dairy per day, with <25 percent of daily caloric intake from fat. Screening for malignant neoplasm of breast 613785287 Z12.39 - last done about 3 years ago.- will repeat today Mixed anxi ety and depressive disorder 510941944 F41.8 LUKE-7 score 14PHQ-9 score 13- continue sertraline 100 mg- continue with psychiatri st Venereal d isease screening 070855718 Z11.3 Patient educated on STD prevention , condom use every time you have anal, vaginal, or oral sex. Hypothyroidism 85874294 E03.9 - continue levothyrox ine, will repeat TSH labs. [id number] MD Chayito Kearns 14 IM [address] [facility] [address] Laureano [address] [place], [place] [address], [place] [address] 11/08/2023 11:12:50 11/12/2023 10:35:26 Sciatica 40176678 M54.30 - presents with c/o lower back pain for few years now. yet to try PT but saw chiropract or in the past.- discussed with patient about physical therapy, and she is agreeable. No need for imaging that this time.- will start Ibuprofen 600 mg as needed- will follow up in 5 weeks Thoracic back pain 74559 8004 M54.6 plan as above Hypothyroidism 72967609 E03.9 - continue levothyrox ine, will repeat TSH labs. Mixed anxi ety and depressive disorder 733735645 F41.8 LUKE-7 score 14PHQ-9 score 13- continue sertraline 100 mg- continue with psychiatri st Allergic rhinitis 225123 04 J30.9 needs refill Vitamin B1 2 deficiency (non anemic) 88943783 E53.8 needs refill Overweight 299223065 E66 .3 Patient educated on healthy eating habits and exercise at least 30 mins per day. A diet comprised of four to five servings of fruit, four to five servings of vegetables , and two to three servings of low-fat dairy per day, with <25 percent of daily caloric intake from fat. [id number] MD Chayito DWYER 14 IM [address] [facility] [address] [place] [address] 12/12/2023 16:13:56 12/25/2023 11:30:10 Allergic rhinitis 49575991 J30.9 needs refill Mixed anxi ety and depressive disorder 529097250 F41.8 LUKE-7 score 14PHQ-9 score 13- continue sertraline 100 mg- continue with psychiatri st Hypothyroidism 80146014 E03.9 - continue levothyrox ine, will repeat TSH labs today. Sciatica 48276063 M54.30 - some improvemen t with pain- continue physical therapy- continue Ibuprofen 600 mg as needed Thoracic back pain 15938 8004 M54.6 plan as above Vitamin B1 2 deficiency (non anemic) 74145195 E53.8 needs refill.lab s pending Overweight 555234333 E66 .3 Patient educated on healthy eating habits and exercise at least 30 mins per day. A diet comprised of four to five servings of fruit, four to five servings of vegetables , and two to three servings of low-fat dairy per day, with <25 percent of daily caloric intake from fat. [id number] MD Chayito Horowitz 14 IM [address] [facility] [address] [place] [address] 01/29/2024 11:36:13 02/05/2024 11:24:09 Obesity 095269978 E66.9 Patient educated on healthy eating habits and exercise at least 30 mins per day. A diet comprised of four to five servings of fruit, four to five servings of vegetables , and two to three servings of low-fat dairy per day, with <25 percent of daily caloric intake from fat. Hypothyroidism 83446208 E03.9 - continue levothyrox ine 75 mcg, will repeat TSH labs today. Health Concerns Section Related Observation LastModified by Organization Detai ls LastModified Time None Recorded Concern Status LastModified by Organization Details LastModified Time None Recorded Advance Directives Directive None Recorded Payers Encounter Date Sequence Insurance Name Policy Number Policy Thomason Covered Member ID Thomason Member ID Guarantor Name 07/16/2023 1 [employer] [id number] Jo Felizper [id number] Jo Felizper 11/08/2023 1 [place] [id number] Jo Felizper [id number] Jo Felizper 12/12/2023 1 [place] [id number] Jo Felizper [id number] Jo Felizper 01/29/2024 1 [place] [id number] oJ Felizper [id number] Jo Felizper Notes Date Note Type Note Provider Name and Address Organization Details Recorded Time 07/16/2023 text/html Jo is a 48 y ear old female with who presents to the clinic to [facility] care. Patient was previous managed by Ms. Deangelo CASEY and Dr. Heaton her rail grinder. She reports both providers are relocating now and needs another provider. Hypothyroidism - Previously managed by rail grinder Dr. Heaton. She repeated TSH lab at that visit and no adjustment to her medication at that visit. Mixed anxiety and depressive disorder - Dr. Heaton also managed her medication and recently about a month ago increased sertraline from 50 mg to 100 mg daily. She reports medication is working well for her. She denies thoughts of hurting self or others. Reports no c/o fever, chills, headaches, changes in vision, shortness of breath, cough, nausea, vomiting, constipation, diarrhea, abdominal pain or leg swelling. PMHx: Hypothyroidism and mixed anxiety and depressionPSHx: thyroidectomy, and partial hysterectomyAllergies : DarvocetMeds: Levothyroxine, sertralineFHx:SocHx:- EtOH: none- Tobacco: none- Drug Use: noneOBGynHx: , LMP about 3 yrs ago ( denies abnormal bleeding or break through bleeds)SexHx: yes with a boyfriend (agreeable to screening) Alysha Pratt MD Attn: [address] [place], [address], [facility] - [facility] 07/17/2023 11:35:37 11/08/2023 text/html Jo is a 48 y o female who presents with back pain. 1) Back pain- burning, stabbing pain in upper back between shoulder blades, knot in middle back, lower back radiates down her legs and causes numbness in right leg first, now left leg. Moving and standing too long makes it worse. Ibuprofen makes it a little better. It has been occurring for 3 years and was episodic at that time. It has worsened and become more constant. She has tried chiropractor for 1 year. No trauma 3 years ago. Broke her tailbone in childhood. 30 pound weight gain in last 6 months after stopping Ozempic. 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 2) Hypothyroidism- treated and causes weight loss to be difficult. Was managed by rail grinder, but the rail grinder is moving and would like us to begin management. 3) Refills on Flonase, albuterol, cetirizine, cyanocobalamin with syringes, levothyroxine, liothyronine, sertraline Alysha Pratt MD Attn: [address]ing[address] [place], [address], [facility] 11/12/2023 00:08:57 12/12/2023 text/html Jo is a 48 y o F with hypothyroidism, sciatica, and seasonal allergies, who presents today for follow up for back pain and allergies. Back pain - Patient reports seeing physical therapy for lower back pain and sciatica. She reports therapy is going well, and reports some improvements with pain. She plans to continue therapy for now with Ibuprofen for pain management. Allergies - patient reports worsening allergies symptoms and being out of her flonase. She reports that pharmacy refused to fill the prescription I sent out on 11/08/23. Prescription refills - pt reports that most of the medications that I refilled on 11/08/23 was not filled by pharmacy for unknown reasons. Reports no c/o fever, chills, headaches, changes in vision, shortness of breath, cough, nausea, vomiting, constipation, diarrhea, abdominal pain or leg swelling. TESSY CARRILLO MD Attn: [address] [place], [address], [facility] 12/24/2023 12:03:09 01/29/2024 text/html Jo is a 49 y o F with pmh of hypothyroidism, who presents today with c/o feeling sluggish since thyroid medication adjustment.Hypothyroi dism followup - Patient was previously on levothyroxine 88 mcg that was titrated down to 75 mcg based on repeat TSH level. Patient reports feeling alot more tired and sluggish since decreasing the dose of Levothyroxine. She reports extreme fatigue especially now on vacation. She finds it very difficult to want to get out of the bed. She is currently on Levothyroxine 75 mcg and liothyronine 5 mcg daily. She reports that her symptoms has nothing to do with her depression because she was doing well until levothyroxine was adjusted. No SI/HI. Amanda Villela MD Attn: [address] [place], [address], [facility] 02/03/2024 16:15:22 OBGyn Episode No OBEpisode recorded.
--- OUTSIDE RECORDS SUMMARY | 2025-01-17 15:16 | XMS_ITS ---
Author Organization [facility] Address [address] [place] [address] Care Team Providers Care Academic Program Specialist Name Role Neri Garcian Primary Care Provider [phone] REASON FOR VISIT lab results Encounters Encounter Location Date Provider Diagnosis [facility] [address] [place] [address] 10/09/2024 Florina Walters Plan Of Treatment Next Appt Details Provider Name:Florina Walters, 12:50:00 PM, [address] [place], [address], Progress Notes * KINVin ZAIDIYukiB:1975 (49 yo F)Acc No.[id number]:10/09/2024 Patient: Jo ANGEL :1975 A ge:49 Y S ex:Female Address:[address] [place] [address] * true * Date: Generated for Savagei ng/Fasahrag/eTransmitting on: 0 01/17/2025 03:16 PM CDT
--- OUTSIDE RECORDS SUMMARY | 2025-01-17 15:16 | XMS_ITS | Data Portability ---
Author Organization [place] [facility], Main Office Address [address] [place] [address] Care Team Providers Care Staff Occupational Therapist Name Role Phone LISANDRA BRIGHT Primary Care Provider [phone] Assessment No assessment recorded. Plan of Treatment Reminders Order Date Submit Date Provider Last Modified By Organization Details Last Modified Time Details Appointments None recorded. Lab lh + FSH, serum 2022 023 [facility], [address], [place], [address], 3 14:03:20 estradiol, serum 2022 023 [facility], [address], [place], [address], 3 14:03:19 progesteron e, serum 2022 023 [facility], [address], [place], [address], 3 14:03:18 testosteron e, total, serum 2022 023 [employer] [facility], [address], [place], [address], 3 14:03:22 dhea-sulfat e, serum 2022 023 [employer] [facility], [address], [place], [address], 3 14:03:16 HbA1c (hemoglobin A1c), blood 2022 023 [facility], [address], [place], [address], 3 14:03:21 insulin, serum 2022 023 [facility], [address], [place], [address], 3 14:03:16 CMP, serum or plasma 2022 023 [facility], [address], [place], [address], 3 14:03:14 T3, free, serum or plasma 2022 023 [facility], [address], [place], [address], 3 14:03:17 T4, free, serum 2022 023 [facility], [address], [place], [address], 3 14:03:17 TSH, serum or plasma 2022 023 [facility], [address], [place], [address], 3 14:03:19 Referral None recorded. Procedures None recorded. Surgeries None recorded. Imaging None recorded. Medication Orders cyanocobala min (vit B-12) 1,000 mcg/mL injection solution 2022 023 [id number], [address], [place], [place], [id number], 3 16:40:21 sertraline 100 mg tablet 2022 023 [facility]94152, [address], [place], [place], [id number], 3 14:33:34 cetirizine 10 mg tablet 2022 023 [facility] #[id number], [address], [place], [place], [id number], 3 16:40:21 levothyroxi ne 88 mcg tablet 2022 023 [facility] #[id number], [address], [place], [place], [id number], 3 16:40:20 liothyronin e 5 mcg tablet 2022 023 [facility]11582, [address], [place], [place], [id number], 3 16:40:21 Patient TargetsNo targets recorded. Patient InstructionsNo instructions recorded. Reason for Referral None Reported. Results Created Date Observation Date Name Description Value Unit Range Abnormal Flag Note LastModifiedBy Organization Detail LastModifiedTime 01/13/20 22 01/15/2022 TSH+F REE T4 TSH 0.40 mIU/L normal Refer ence Range > or = 20 Years 0.40- 4.50 Pregn celia Range s First trime ster 0.26- 2.66 Secon d trime ster 0.55- 2.73 Third trime ster 0.43- 2.91 Not Available [facility] [address] [place], [address], 01/15/2022 14:51:37 01/13/20 22 01/15/2022 TSH+F REE T4 T4, free 1.1 NG/dL 0.8-1. 8 normal Not Available [facility] [address] [place], [address], 01/15/2022 14:51:37 01/13/20 22 01/15/2022 T3, FREE T3, free 2.9 pg/mL 2.3-4. 2 normal Not Available [address], [address], 01/15/2022 14:51:36 01/13/20 22 01/15/2022 VITAM IN B12/F OLATE , SERUM PANEL vitamin B12 297 pg/mL 200-11 00 normal Pleas e Note: Altho ugh the refer ence range for vitam in B12 is 200-1 100 pg/mL , it has been repor toya that betwe en 5 and 10% of patie nts with value s betwe en 200 and 400 pg/mL may exper ience neuro psych iatri c and hemat ologi c abnor malit ies due to occul t B12 defic iency ; less than 1% of patie nts with value s above 400 pg/mL will have sympt oms. Not Available [address], [address], 01/15/2022 14:51:35 01/13/20 22 01/15/2022 VITAM IN B12/F OLATE , SERUM PANEL folate, serum 10.2 NG/mL normal Refer ence Range Low: <3.4 Borde rline : 3.4-5 .4 Jovanna l: >5.4 Not Available [address], [address], 01/15/2022 14:51:35 01/13/20 22 01/15/2022 THYRO ID PEROX IDASE ANTIB ODIES thyroid peroxidase antibodies 9 IU/mL <9 high Not Available [facility] [address], [address], 01/15/2022 14:51:35 01/13/20 22 01/15/2022 COMPR EHENS EMIL METAB OLIC PANEL glucose 77 mg/dL 65-99 normal Fasti ng refer ence inter jalil Not Available [facility] [address], [address], 01/15/2022 14:51:34 01/13/20 22 01/15/2022 COMPR EHENS EMIL METAB OLIC PANEL urea nitrogen (BUN) 17 mg/dL 7-25 normal Not Available [address], [address], 01/15/2022 14:51:34 01/13/20 22 01/15/2022 COMPR EHENS EMIL METAB OLIC PANEL creatinine 0.61 mg/dL 0.50-1 .10 normal Not Available [address], [address], 01/15/2022 14:51:34 01/13/20 22 01/15/2022 COMPR EHENS EMIL METAB OLIC PANEL eGFR non-afr. anguillan 109 mL/mi n/1.7 3m2 > or = 60 normal Not Available [address], [address], 01/15/2022 14:51:34 01/13/20 22 01/15/2022 COMPR EHENS EMIL METAB OLIC PANEL eGFR 127 mL/mi n/1.7 3m2 > or = 60 normal Not Available [address], [address], 01/15/2022 14:51:34 01/13/20 22 01/15/2022 COMPR EHENS EMIL METAB OLIC PANEL BUN/creatini ne ratio not applic able (calc ) 6-22 Not Available [address], [address], 01/15/2022 14:51:34 01/13/20 22 01/15/2022 COMPR EHENS EMIL METAB OLIC PANEL sodium 137 mmol/ L 135-14 6 normal Not Available [address], [address], 01/15/2022 14:51:34 01/13/20 22 01/15/2022 COMPR EHENS EMIL METAB OLIC PANEL potassium 3.6 mmol/ L 3.5-5. 3 normal Not Available [address], [address], 01/15/2022 14:51:34 01/13/20 22 01/15/2022 COMPR EHENS EMIL METAB OLIC PANEL chloride 103 mmol/ L 98-110 normal Not Available [address], [address], 01/15/2022 14:51:34 01/13/20 22 01/15/2022 COMPR EHENS EMIL METAB OLIC PANEL carbon dioxide 28 mmol/ L 20-32 normal Not Available [address], [address], 01/15/2022 14:51:34 01/13/20 22 01/15/2022 COMPR EHENS EMIL METAB OLIC PANEL calcium 9.4 mg/dL 8.6-10 .2 normal Not Available [address], [address], 01/15/2022 14:51:34 01/13/20 22 01/15/2022 COMPR EHENS EMIL METAB OLIC PANEL protein, total 6.7 g/dL 6.1-8. 1 normal Not Available [address], [address], 01/15/2022 14:51:34 01/13/20 22 01/15/2022 COMPR EHENS EMIL METAB OLIC PANEL albumin 4.4 g/dL 3.6-5. 1 normal Not Available [address], [address], 01/15/2022 14:51:34 01/13/20 22 01/15/2022 COMPR EHENS EMIL METAB OLIC PANEL globulin 2.3 g/dL_ (calc ) 1.9-3. 7 normal Not Available [address], [address], 01/15/2022 14:51:34 01/13/20 22 01/15/2022 COMPR EHENS EMIL METAB OLIC PANEL albumin/glob ulin ratio 1.9 (calc ) 1.0-2. 5 normal Not Available [address], [address], 01/15/2022 14:51:34 01/13/20 22 01/15/2022 COMPR EHENS EMIL METAB OLIC PANEL bilirubin, total 0.6 mg/dL 0.2-1. 2 normal Not Available [address], [address], 01/15/2022 14:51:34 01/13/20 22 01/15/2022 COMPR EHENS EMIL METAB OLIC PANEL alkaline phosphatase 61 U/L 31-125 normal Not Available [address], [address], 01/15/2022 14:51:34 01/13/20 22 01/15/2022 COMPR EHENS EMIL METAB OLIC PANEL AST 13 U/L 10-35 normal Not Available [address], [address], 01/15/2022 14:51:34 01/13/20 22 01/15/2022 COMPR EHENS EMIL METAB OLIC PANEL ALT 12 U/L 6-29 normal Not Available [address], [address], 01/15/2022 14:51:34 04/26/20 22 04/27/2022 TSH+F REE T4 TSH 0.87 mIU/L normal Refer ence Range > or = 20 Years 0.40- 4.50 Pregn celia Range s First trime ster 0.26- 2.66 Secon d trime ster 0.55- 2.73 Third trime ster 0.43- 2.91 Not Available [address], [address], 04/27/2022 15:38:45 04/26/20 22 04/27/2022 TSH+F REE T4 T4, free 1.1 NG/dL 0.8-1. 8 normal Not Available [address], [address], 04/27/2022 15:38:45 04/26/20 22 04/27/2022 T3, FREE T3, free 2.8 pg/mL 2.3-4. 2 normal Not Available [address], [address], 04/27/2022 15:38:45 04/26/20 22 04/27/2022 VITAM IN B12/F OLATE , SERUM PANEL vitamin B12 997 pg/mL 200-11 00 normal Not Available [address], [address], 04/27/2022 15:38:44 04/26/20 22 04/27/2022 VITAM IN B12/F OLATE , SERUM PANEL folate, serum >24.0 NG/mL normal Refer ence Range Low: <3.4 Borde rline : 3.4-5 .4 Jovanna l: >5.4 Not Available [address], [address], 04/27/2022 15:38:44 04/26/20 22 04/27/2022 THYRO ID PEROX IDASE ANTIB ODIES thyroid peroxidase antibodies 8 IU/mL <9 normal Not Available [address], [address], 04/27/2022 15:38:43 04/26/20 22 04/27/2022 COMPR EHENS EMIL METAB OLIC PANEL glucose 91 mg/dL 65-99 normal Fasti ng refer ence inter jalil Not Available [address] [place], [address], 04/27/2022 15:38:42 04/26/20 22 04/27/2022 COMPR EHENS EMIL METAB OLIC PANEL urea nitrogen (BUN) 19 mg/dL 7-25 normal Not Available [address], [address], 04/27/2022 15:38:42 04/26/20 22 04/27/2022 COMPR EHENS EMIL METAB OLIC PANEL creatinine 0.66 mg/dL 0.50-1 .10 normal Not Available [address], [address], 04/27/2022 15:38:42 04/26/20 22 04/27/2022 COMPR EHENS EMIL METAB OLIC PANEL eGFR non-afr. anguillan 106 mL/mi n/1.7 3m2 > or = 60 normal Not Available [address], [address], 04/27/2022 15:38:42 04/26/20 22 04/27/2022 COMPR EHENS EMIL METAB OLIC PANEL eGFR 123 mL/mi n/1.7 3m2 > or = 60 normal Not Available [address], [address], 04/27/2022 15:38:42 04/26/20 22 04/27/2022 COMPR EHENS EMIL METAB OLIC PANEL BUN/creatini ne ratio not applic able (calc ) 6-22 Not Available [address], [address], 04/27/2022 15:38:42 04/26/20 22 04/27/2022 COMPR EHENS EMIL METAB OLIC PANEL sodium 139 mmol/ L 135-14 6 normal Not Available [address], [address], 04/27/2022 15:38:42 04/26/20 22 04/27/2022 COMPR EHENS EMIL METAB OLIC PANEL potassium 4.2 mmol/ L 3.5-5. 3 normal Not Available [address], [address], 04/27/2022 15:38:42 04/26/20 22 04/27/2022 COMPR EHENS EMIL METAB OLIC PANEL chloride 105 mmol/ L 98-110 normal Not Available [address], [address], 04/27/2022 15:38:42 04/26/20 22 04/27/2022 COMPR EHENS EMIL METAB OLIC PANEL carbon dioxide 24 mmol/ L 20-32 normal Not Available [address], [address], 04/27/2022 15:38:42 04/26/20 22 04/27/2022 COMPR EHENS EMIL METAB OLIC PANEL calcium 9.6 mg/dL 8.6-10 .2 normal Not Available [address], [address], 04/27/2022 15:38:42 04/26/20 22 04/27/2022 COMPR EHENS EMIL METAB OLIC PANEL protein, total 6.8 g/dL 6.1-8. 1 normal Not Available [address], [address], 04/27/2022 15:38:42 04/26/20 22 04/27/2022 COMPR EHENS EMIL METAB OLIC PANEL albumin 4.5 g/dL 3.6-5. 1 normal Not Available [address], [address], 04/27/2022 15:38:42 04/26/20 22 04/27/2022 COMPR EHENS EMIL METAB OLIC PANEL globulin 2.3 g/dL_ (calc ) 1.9-3. 7 normal Not Available [address], [address], 04/27/2022 15:38:42 04/26/20 22 04/27/2022 COMPR EHENS EMIL METAB OLIC PANEL albumin/glob ulin ratio 2.0 (calc ) 1.0-2. 5 normal Not Available [address], [address], 04/27/2022 15:38:42 04/26/20 22 04/27/2022 COMPR EHENS EMIL METAB OLIC PANEL bilirubin, total 0.5 mg/dL 0.2-1. 2 normal Not Available [address], [address], 04/27/2022 15:38:42 04/26/20 22 04/27/2022 COMPR EHENS EMIL METAB OLIC PANEL alkaline phosphatase 57 U/L 31-125 normal Not Available [address], [address], 04/27/2022 15:38:42 04/26/20 22 04/27/2022 COMPR EHENS EMIL METAB OLIC PANEL AST 13 U/L 10-35 normal Not Available [address], [address], 04/27/2022 15:38:42 04/26/20 22 04/27/2022 COMPR EHENS EMIL METAB OLIC PANEL ALT 11 U/L 6-29 normal Not Available [address], [address], 04/27/2022 15:38:42 06/12/20 22 06/14/2022 TSH+F REE T4 TSH 0.98 mIU/L normal Refer ence Range > or = 20 Years 0.40- 4.50 Pregn celia Range s First trime ster 0.26- 2.66 Secon d trime ster 0.55- 2.73 Third trime ster 0.43- 2.91 Not Available [address], [address], 06/14/2022 16:58:28 06/12/20 22 06/14/2022 TSH+F REE T4 T4, free 1.1 NG/dL 0.8-1. 8 normal Not Available [address], [address], 06/14/2022 16:58:28 06/12/20 22 06/14/2022 T3, FREE T3, free 2.3 pg/mL 2.3-4. 2 normal Not Available [address], [address], 06/14/2022 16:58:28 06/12/20 22 06/14/2022 VITAM IN B12/F OLATE , SERUM PANEL vitamin B12 >2000 pg/mL 200-11 00 high Not Available [address], [address], 06/14/2022 16:58:28 06/12/20 22 06/14/2022 VITAM IN B12/F OLATE , SERUM PANEL folate, serum 21.9 NG/mL normal Refer ence Range Low: <3.4 Borde rline : 3.4-5 .4 Jovanna l: >5.4 Not Available [address], [address], 06/14/2022 16:58:28 06/12/20 22 06/14/2022 THYRO ID PEROX IDASE ANTIB ODIES thyroid peroxidase antibodies 10 IU/mL <9 high Not Available [address], [address], 06/14/2022 16:58:27 06/12/20 22 06/14/2022 COMPR EHENS EMIL METAB OLIC PANEL glucose 77 mg/dL 65-99 normal Fasti ng refer ence inter jalil Not Available [address], [place], [address], 06/14/2022 16:58:27 06/12/20 22 06/14/2022 COMPR EHENS EMIL METAB OLIC PANEL urea nitrogen (BUN) 16 mg/dL 7-25 normal Not Available [facility] [address] [place], [address], 06/14/2022 16:58:27 06/12/20 22 06/14/2022 COMPR EHENS EMIL METAB OLIC PANEL creatinine 0.77 mg/dL 0.50-0 .99 normal Not Available [address], [address], 06/14/2022 16:58:27 06/12/20 22 06/14/2022 COMPR EHENS EMIL METAB OLIC PANEL eGFR 96 mL/mi n/1.7 3m2 > or = 60 normal The eGFR is based on the CKD-E PI 2020 equat ion. To calcu late the new eGFR from a previ ous Creat inine or Cysta tin C resul t, go to https :[email or web address]/ kdoqi /gfr% 5Fcal culat or Not Available [facility] [address] [place], [address], 06/14/2022 16:58:27 06/12/20 22 06/14/2022 COMPR EHENS EMIL METAB OLIC PANEL BUN/creatini ne ratio not applic able (calc ) 6-22 Not Available [facility] [address] [place], [address], 06/14/2022 16:58:27 06/12/20 22 06/14/2022 COMPR EHENS EMIL METAB OLIC PANEL sodium 137 mmol/ L 135-14 6 normal Not Available [facility] [address] [place], [address], 06/14/2022 16:58:27 06/12/20 22 06/14/2022 COMPR EHENS EMIL METAB OLIC PANEL potassium 4.4 mmol/ L 3.5-5. 3 normal Not Available [address], [address], 06/14/2022 16:58:27 06/12/20 22 06/14/2022 COMPR EHENS EMIL METAB OLIC PANEL chloride 105 mmol/ L 98-110 normal Not Available [address], [address], 06/14/2022 16:58:27 06/12/20 22 06/14/2022 COMPR EHENS EMIL METAB OLIC PANEL carbon dioxide 26 mmol/ L 20-32 normal Not Available [address], [address], 06/14/2022 16:58:27 06/12/20 22 06/14/2022 COMPR EHENS EMIL METAB OLIC PANEL calcium 9.6 mg/dL 8.6-10 .2 normal Not Available [address], [address], 06/14/2022 16:58:27 06/12/20 22 06/14/2022 COMPR EHENS EMIL METAB OLIC PANEL protein, total 6.8 g/dL 6.1-8. 1 normal Not Available [address], [address], 06/14/2022 16:58:27 06/12/20 22 06/14/2022 COMPR EHENS EMIL METAB OLIC PANEL albumin 4.4 g/dL 3.6-5. 1 normal Not Available [address], [address], 06/14/2022 16:58:27 06/12/20 22 06/14/2022 COMPR EHENS EMIL METAB OLIC PANEL globulin 2.4 g/dL_ (calc ) 1.9-3. 7 normal Not Available [address], [address], 06/14/2022 16:58:27 06/12/20 22 06/14/2022 COMPR EHENS EMIL METAB OLIC PANEL albumin/glob ulin ratio 1.8 (calc ) 1.0-2. 5 normal Not Available [address], [address], 06/14/2022 16:58:27 06/12/20 22 06/14/2022 COMPR EHENS EMIL METAB OLIC PANEL bilirubin, total 0.6 mg/dL 0.2-1. 2 normal Not Available [address], [address], 06/14/2022 16:58:27 06/12/20 22 06/14/2022 COMPR EHENS EMIL METAB OLIC PANEL alkaline phosphatase 53 U/L 31-125 normal Not Available [address], [address], 06/14/2022 16:58:27 06/12/20 22 06/14/2022 COMPR EHENS EMIL METAB OLIC PANEL AST 13 U/L 10-35 normal Not Available [address], [address], 06/14/2022 16:58:27 06/12/20 22 06/14/2022 COMPR EHENS EMIL METAB OLIC PANEL ALT 9 U/L 6-29 normal Not Available [address], [address], 06/14/2022 16:58:27 05/01/20 23 05/04/2023 COMPR EHENS EMIL METAB OLIC PANEL glucose 75 mg/dL 65-99 normal Fasti ng refer ence inter jalil Not Available [address], [address], 05/04/2023 14:03:14 05/01/20 23 05/04/2023 COMPR EHENS EMIL METAB OLIC PANEL urea nitrogen (BUN) 15 mg/dL 7-25 normal Not Available [address], [address], 05/04/2023 14:03:14 05/01/20 23 05/04/2023 COMPR EHENS EMIL METAB OLIC PANEL creatinine 0.63 mg/dL 0.50-0 .99 normal Not Available [address], [address], 05/04/2023 14:03:14 05/01/20 23 05/04/2023 COMPR EHENS EMIL METAB OLIC PANEL eGFR 110 mL/mi n/1.7 3m2 > or = 60 normal The eGFR is based on the CKD-E PI 2020 equat ion. To calcu late the new eGFR from a previ ous Creat inine or Cysta tin C resul t, go to https :[email or web address] sweeney s/ kdoqi /gfr% 5Fcal culat or Not Available [address], [address], 05/04/2023 14:03:14 05/01/20 23 05/04/2023 COMPR EHENS EMIL METAB OLIC PANEL BUN/creatini ne ratio NOT APPLIC ABLE (calc ) 6-22 Not Available [address], [address], 05/04/2023 14:03:14 05/01/20 23 05/04/2023 COMPR EHENS EMIL METAB OLIC PANEL sodium 139 mmol/ L 135-14 6 normal Not Available [address], [address], 05/04/2023 14:03:14 05/01/20 23 05/04/2023 COMPR EHENS EMIL METAB OLIC PANEL potassium 3.9 mmol/ L 3.5-5. 3 normal Not Available [facility] [address], [address], 05/04/2023 14:03:14 05/01/20 23 05/04/2023 COMPR EHENS EMIL METAB OLIC PANEL chloride 107 mmol/ L 98-110 normal Not Available [address], [address], 05/04/2023 14:03:14 05/01/2005/04/2023 COMPR EHENS EMIL METAB OLIC PANEL carbon dioxide 26 mmol/ L 20-32 normal Not Available [facility] [address], [address], 05/04/2023 14:03:14 05/01/2005/04/2023 COMPR EHENS EMIL METAB OLIC PANEL calcium 9.1 mg/dL 8.6-10 .2 normal Not Available [address], [address], 05/04/2023 14:03:14 05/01/2005/04/2023 COMPR EHENS EMIL METAB OLIC PANEL protein, total 6.5 g/dL 6.1-8. 1 normal Not Available [address], [address], 05/04/2023 14:03:14 05/01/2005/04/2023 COMPR EHENS EMIL METAB OLIC PANEL albumin 4.1 g/dL 3.6-5. 1 normal Not Available [address], [address], 05/04/2023 14:03:14 05/01/2005/04/2023 COMPR EHENS EMIL METAB OLIC PANEL globulin 2.4 g/dL_ (calc ) 1.9-3. 7 normal Not Available [address], [address], 05/04/2023 14:03:14 05/01/2005/04/2023 COMPR EHENS EMIL METAB OLIC PANEL albumin/glob ulin ratio 1.7 (calc ) 1.0-2. 5 normal Not Available [address], [address], 05/04/2023 14:03:14 05/01/20 23 05/04/2023 COMPR EHENS EMIL METAB OLIC PANEL bilirubin, total 0.5 mg/dL 0.2-1. 2 normal Not Available [address], [address], 05/04/2023 14:03:14 05/01/2005/04/2023 COMPR EHENS EMIL METAB OLIC PANEL alkaline phosphatase 52 U/L 31-125 normal Not Available [address], [address], 05/04/2023 14:03:14 05/01/20 23 05/04/2023 COMPR EHENS EMIL METAB OLIC PANEL AST 12 U/L 10-35 normal Not Available [address], [address], 05/04/2023 14:03:14 05/01/2005/04/2023 COMPR EHENS EMIL METAB OLIC PANEL ALT 11 U/L 6-29 normal Not Available [address], [address], 05/04/2023 14:03:14 05/01/2005/04/2023 DHEA SULFA TE DHEA sulfate 64 mcg/d L 15-205 normal DHEA- S value s fall with advan cing age. For refer ence, the refer ence inter vals for 31-40 year old patie nts are: Male: 93-41 5 mcg/d L Femal e: 19-23 7 mcg/d L Not Available [address], [address], 05/04/2023 14:03:16 05/01/2005/04/2023 INSUL IN insulin 5.3 uIU/m L normal Refer ence Range < or = 18.4 Risk: Optim al < or = 18.4 Moder ate NA High >18.4 Adult cardi ovasc ular event risk categ ory cut point s (opti mal, moder ate, high) are based on Insul in Refer ence Inter jalil studi es perfo rmed at [facility] in 2021. Not Available [facility] [address] [address] [place], [address], 05/04/2023 14:03:16 05/01/2005/04/2023 T4, FREE T4, free 1.2 NG/dL 0.8-1. 8 normal Not Available [facility] [address] [address] [place], [address], 05/04/2023 14:03:17 05/01/2005/04/2023 T3, FREE T3, free 3.7 pg/mL 2.3-4. 2 normal Not Available [facility] [address] [address] [place], [address], 05/04/2023 14:03:17 05/01/2005/04/2023 PROGE STERO NE progesterone <0.5 NG/mL normal Refer ence Range s Femal e Folli cular Phase < 1.0 Lutea l Phase 2.6-2 1.5 Post menop ausal < 0.5 Pregn celia 1st Trime ster 4.1-3 4.0 2nd Trime ster 24.0- 76.0 3rd Trime ster 52.0- 302.0 Not Available [facility] [address] [address] [place], [address], 05/04/2023 14:03:18 05/01/2005/04/2023 TSH TSH 0.03 mIU/L low Refer ence Range > or = 20 Years 0.40- 4.50 Pregn celia Range s First trime ster 0.26- 2.66 Secon d trime ster 0.55- 2.73 Third trime ster 0.43- 2.91 Not Available [facility] [address] [place], [address], 05/04/2023 14:03:19 05/01/20 23 05/04/2023 ESTRA DIOL estradiol 23 pg/mL normal Refer ence Range Folli cular Phase : 19-14 4 Mid-C ycle: 64-35 7 Lutea l Phase : 56-21 4 Postm enopa usal: < or = 31 Refer ence range estab lishe d on post- puber ronni patie nt popul ation . No pre-p ubert al refer ence range estab lishe d using this assay . For any patie nts for whom low Estra diol level s are antic ipate d (e.g. males , pre-p ubert al child lisa and hypog onada l/pos t-men opaus al femal es), the [facility] t[facility] Estra diol, Ultra sensi tive, LCMSM S assay is recom césar d (orde r code 62093 ). Pleas e note: patie nts being treat ed with the drug fulve stran t (Fasl odex( R)) have demon strat ed signi fican t inter feren ce in immun oassa y metho ds for estra diol measu remen t. The cross react ivity could lead to false ly eleva toya estra diol test resul ts leadi ng to an inapp ropri ate clini hany asses sment of estro gen statu s. [facility] order code 96912 -Estr adiol , Ultra sensi tive LC/MS /MS demon strat es negli gible cross react ivity with fulve stran t. Not Available [facility] [address] [place], [address], 05/04/2023 14:03:19 05/01/20 23 05/04/2023 FSH AND LH FSH 37.5 mIU/m L normal Refer ence Range Folli cular Phase 2.5-1 0.2 Mid-c ycle Peak 3.1-1 7.7 Lutea l Phase 1.5- 9.1 Postm enopa usal 23.0- 116.3 Not Available [facility] [address] [place], [address], 05/04/2023 14:03:20 05/01/20 23 05/04/2023 FSH AND LH LH 15.1 mIU/m L normal Refer ence Range Folli cular Phase 1.9-1 2.5 Mid-C ycle Peak 8.7-7 6.3 Lutea l Phase 0.5-1 6.9 Postm enopa usal 10.0- 54.7 Not Available [facility] [address] [place], [address], 05/04/2023 14:03:20 05/01/20 23 05/04/2023 HEMOG LOBIN A1C hemoglobin A1C 4.6 %_of_ total _HGB <5.7 normal For the purpo se of scretaiwo camarenag for the prese nce of diabe swapnil: <5.7% Consi stent with the absen ce of diabe swapnil 5.7-6 .4% Consi stent with incre ased risk for diabe swapnil (pred iabet es) > or =6.5% Consi stent with diabe swapnil This assay resul t is consi stent with a decre ased risk of diabe swapnil. Curre ntly, no conse nsus exist s caio umaña use of hemog lobin A1c for diagn osis of diabe swapnil in child lisa. Accor ding to [employer]i can [employer] swapnil [employer] iatio n (ADA) guide lines , hemog lobin A1c <7.0% repre sents optim al contr ol in non-p regna nt diabe tic patie nts. Diffe rent metri cs may apply to speci fic patie nt popul ation s. [facility] in Diabe swapnil(A DA). Not Available [facility] [address] [place], [address], 05/04/2023 14:03:21 06/05/04/2023 TESTO STERO NE, TOTAL , MS testosterone , total, MS 20 NG/dL 2-45 For addit ional infor cynthia mena refer to https ://ed ucati on.qu iesha debbie tics. com/f aq/To Alexandre robin LCMSM S (This link is being provi ded for infor anais nal/e ducat ional purpo ses only. ) (Note ) This test was devel oped and its migue tical perfo rmanc e judson cteri stics have been deter mined by [employer]. It has not been clear ed or appro mihir by the FDA. This assay has been valid ated pursu ant to the CLIA regul ation s and is used for clini hany purpo ses. MDF viv jain [address] [facility] [address] [facility] [address] [phone] Ishaan smith MD Not Available [place] [address] [place], [address], 05/04/2023 14:03:22 Result Notes None recorded. Problems Name Problem SNOMED Code Status Onset Date Resolution Date Notes Provider Name and Address Organization Details Recorded Time Prediabetes [id number] Active 2022 Andrea Bone MD [address] [employer], [address], [place], [address] , [facility] 3 15:52:28 Mood disorder 27539266 Active 2022 CASIMIRO Boyce [address], [address], [place], [address] , [facility] [employer] [employer] 3 12:22:17 Weight gain 9432171 Active 2022 HÉCTOR Cruz null, [facility] [employer] 3 10:00:26 Generalized anxiety disorder 76553177 Active 2022 Andrea Bone MD [address], [address], [place], [address] , [facility] [employer] 3 14:32:16 Vitamin B12 deficiency (non anemic) 23039974 Active 2022 Andrea Bone MD [address], [place] [address], [place], [address] , [facility] [employer] [facility] 3 16:38:34 Seasonal allergic rhinitis 148819445 Active 2022 Andrea Bone MD [address], [address] [address], [place], [address] , [facility] [employer] [facility] 3 16:38:46 Vitamin D deficiency 33197083 Active Not Available [facility] 3 04:46:11 Hypothyroidis m 53372875 Active Not Available [facility] 3 04:46:11 Anxiety 60911254 Active Not Available [facility] 3 04:46:11 Problem Notes Documentation Provider Name and Address Organization Details Recorded Time Endocrinology Consult Note : [place] [address] [facility], [facility] [address]BHQFLW, Alicia (id #[id number], : 1975) Documents sent via fax will include the following message: This fax may contain sensitive and confidential personal health information that is being sent for the sole use of the intended recipient. Unintended recipients are directed to securely destroy any materials received. You are hereby notified that the unauthorized disclosure or other unlawful use of this fax or any personal health information is prohibited. To the extent patient information contained in this fax is subject to 42 CFR Part 2, this regulation prohibits unauthorized disclosure of these records. If you received this fax in error, please visit [email or web address] to notify the sender and confirm that the information will be destroyed. If you do not have internet access, please call to notify the sender and confirm that the information will be destroyed. Thank you for your attention and cooperation. [ID:[id number]][facility] [employer] [facility] [address] [place] [address] , Date: 06/28/2023RE: Jo Shukla, : 1975, PT ID #[id number] Efren Bright [facility], I would like to thank you for referring Jo Shukla to our practice for consultation and evaluation of FU ON LABS , on 06/28/2023. I have enclosed a copy of the office evaluation for your records. Once again, thank you for allowing me to participate in the care of this patient. Sincerely, Electronically Signed by: ANDREA BONE MD Encounter Reason/Date FU ON LABS 06/28/2023 - 01:30PM - [facility] Problems:Reviewed Problems Hypothyroidism Vitamin B12 deficiency (non anemic) - Onset: 06/28/2023 Vitamin D deficiency Mood disorder - Onset: 03/05/2023 Anxiety Generalized anxiety disorder - Onset: 06/28/2023 Seasonal allergic rhinitis - Onset: 06/28/2023 Prediabetes - Onset: 02/15/2023 Weight gain - Onset: 05/16/2023 Allergies: Reviewed Allergies DARVOCET-N: Angioedema Medications: Reviewed Medications NameDate Source albuterol sulfate HFA 90 mcg/actuation aerosol inhalerINHALE 2 PUFFS BY MOUTH EVERY 4 TO 6 HOURS NEEDED FOR SHORTNESS OF RBJXIC93/18/22 filled MIGR[facility].[id number] cetirizine 10 mg tabletTAKE 1 TABLET BY MOUTH EVERY DAY IN THE FFFOTHA29/25/23 prescribed Andrea Bone MD cyanocobalamin (vit B-12) 1,000 mcg/mL injection solutionADMINISTER 1 ML UNDER THE SKIN EVERY WEEK IN THE AUEFMGB47/25/23 prescribed Andrea Bone MD fluticasone propionate 50 mcg/actuation nasal spray,suspensionSHAKE LIQUID AND USE 2 SPRAYS NASALLY EVERY DAY AT YHSNXQ32/18/22 filled MIGRATION.[id number] insulin syringe U-100 with needle 1 mL 31 gauge x 5/16 INJECT B12 INJECTIONS ONCE WEEKLY SUBCUTANEOUS FOR 90 DAYS01/16/22 filled MIGRATION.[id number] levothyroxine 88 mcg tabletTAKE 1 TABLET BY MOUTH EVERY DAY.06/28/23 prescribed Andrea Bone MD liothyronine 5 mcg tabletTake 1 tablet twice a day by oral route around the clock for 90 days.06/28/23 prescribed Andrea Bone MD sertraline 100 mg tabletTake 1 tablet(s) every day by oral route in the morning for 90 days.06/28/23 prescribed Andrea Bone MD Family History: Maternal Grandmother - Alzheimer's disease Thyroid disease runs in the family-one on mothers side and one on dad's Social History:Substance UseDo you or have you ever smoked tobacco?: Never smokerDo you or have you ever used e-cigarettes or vape?: Never used electronic cigarettesHow much tobacco do you chew?: noneWhat is your level of alcohol consumption?: NoneDo you use any illicit or recreational drugs?: NoWhich illicit or recreational drugs have you used?: noneWhat is your level of caffeine consumption?: ModeratePublic Health and TravelHave you recently traveled abroad?: NoIn the 14 days before symptom onset, have you had close contact with a laboratory-confirmed COVID-19 while that case was ill?: NoIn the 14 days before symptom onset, have you had close contact with a person who is under investigation for COVID-19 while that person was ill?: NoEducation and OccupationWhat is your 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 and ExerciseWhat type of diet are you following?: RegularDo you have any dietary restrictions?: NoMarriage and SexualityWhat is your relationship status?: MarriedGender Identity and LGBTQ IdentityGender identity: Identifies as FemaleAssigned sex at : FemalePronouns: she/herSexual orientation: Straight or heterosexualSurgical History Hysterectomy, Partial Tubal Ligation Thyroidectomy Additional HistoryNone recordedHistory of Present Illness:48 yo female comes in for follow up in management of hypothyroidism and prediabetes last seen in February at that time we continued synthroid 88 mcg daily and liothyronine 5 mcg twice daily. we continued ozempic 0.5 mg once weekly. However insurance will no longer cover the ozempic. She is taking sertraline 50 mg daily and feels it is not really helping her anxiety/depression. She is doing well with her thyroid, no palpitations or flutters. She has gained 6 pounds since her last visit. She does have mild heat intolerance. Her estrogen and progesterone are low so perimenopausal range but doesn't wish to do HRT at this time. labs from 05/01/23:testosterone 20 ng/dLdheas normalglucose 75 mg/dLCr normalLFT rqgudho3s 4.6%FSH 37.5 mIU/ml and LH of 15.1 mIU/mlprogesterone <0.5 ng/MLestradiol 23 pg/mlFT3 of 3.7 pg/mlFT4 of 1.2 ng/dLTSH of 0.03 uIU/mlReview of Systems:ROS as noted in the HPIPhysical ExamConstitutional:General Appearance: healthy-appearing, well-nourished, well-developed, not anxious/nervous, and no sweating. Level of Distress: no acute distress. Eyes:Lids and Conjunctivae: no discharge, pallor, lid lag, or periorbital edema and non-injected. Neck:Neck: supple, trachea midline, no masses, and full range of motion. Thyroid: no enlargement or nodules and non-tender. Neck vessels: no carotid bruits or thyroid bruits. Lymph Nodes: no anterior cervical LAD, posterior cervical LAD, submandibular LAD, submental LAD, preauricular LAD, or supraclavicular LAD. Cardiovascular:Apical Impulse: not displaced. Heart Auscultation: normal S1 and S2; no murmurs, rubs, or gallops; and regular rate and rhythm. Lungs:Auscultation: no wheezing, rales/crackles, or rhonchi and breath sounds normal, good air movement, and clear to auscultation. Psychiatric:Mental Status: normal mood and affect, no diffuse anxiety or paranoid ideations, and active and alert.Procedure DocumentationNone recordedAssessment/Plan1. Hypothyroidism-TSH and FT4 in ideal range- continue on synthroid 88 mcg daily and liothyronine 5 mcg twice daily. She was reminded to take her synthroid on empty stomach with glass of water and wait one hour to eat or have her coffee in morning and up to 4 hours if ever taking any heartburn or reflux medications to help optimize absorption. Discussed paleo like diet with restriction of GMOs to help with energy and to optimize absorption of vitamins and minerals and reduce inflammation.E03.9: Hypothyroidism, unspecified levothyroxine 88 mcg tablet - TAKE 1 TABLET BY MOUTH EVERY DAY. Qty: (90) tablet Refills: 2 Pharmacy: [facility] #[id number] liothyronine 5 mcg tablet - Take 1 tablet twice a day by oral route around the clock for 90 days. Qty: (180) tablet Refills: 2 Pharmacy: [facility] #[id number] 2. Generalized anxiety disorder-She is having more anxiety and recent divorce. Requesting dose increase- will uptitrate sertraline to 100 mg daily as patient tolerating well. She is aware she has perimenopausal changes and not wanting to go on HRT at this time. She has no SIs or HIs and will follow up with PCP for further management.F41.1: Generalized anxiety disorder sertraline 100 mg tablet - Take 1 tablet(s) every day by oral route in the morning for 90 days. Qty: (90) tablet Refills: 1 Pharmacy: [facility] #[id number] 3. Vitamin B12 deficiency (non anemic)-Continue on B12 injections for energy and focus.E53.8: Deficiency of other specified B group vitamins cyanocobalamin (vit B-12) 1,000 mcg/mL injection solution - ADMINISTER 1 ML UNDER THE SKIN EVERY WEEK IN THE MORNING Qty: (13) mL Refills: 3 Pharmacy: [facility] #[id number] INSULIN SYRINGE U-100 WITH NEEDLE 1 ML 31 GAUGE X 5/16 - inject B12 SQ once weekly x 90 days Qty: 13 Units Refills: 3 Supplier: [facility] #[id number] 4. Seasonal allergic rhinitis-Refill cetirizine. Spent up to 25 minutes preparing to see the patient (eg, review of tests), obtaining and/or reviewing separately obtained history, performing a medically appropriate examination and evaluation, counseling and educating the patient, ordering medications, tests, along with documenting clinical information in the electronic health record, independently interpreting results and communicating results to the patient. Patient can be followed by PCP - she/he is aware of my resignation and last day of August 16. If needed his/her PCP can refer patient to another [facility] in the area. All questions /concerns answered and refills necessary at visit today.J30.2: Other seasonal allergic rhinitis cetirizine 10 mg tablet - TAKE 1 TABLET BY MOUTH EVERY DAY IN THE MORNING Qty: (90) tablet Refills: 1 Pharmacy: [facility] #[id number] Return to Office Patient will return to the office as needed Angelcia Lalor, RN null, [place] [facility] 07/01/2023 08:59:46 Procedures Surgical History Date Name Laterality Status Provider Name and Address Organization Details Recorded Time thyroidectomy completed Not Available [facility] 01/02/2023 04:41:31 Hysterectomy, Partial completed Not Available [facility] 01/02/2023 04:41:31 Tubal Ligation completed Not Available [facility] 01/02/2023 04:41:31 Imaging Results None recorded. Procedure Notes None recorded. Medical Equipment None Reported. Allergies Allergen ID Allergen Name Allergen Category Reaction Reaction Severity Criticality Documentation Date Start Date Code Code System Note Provider Name and Address Organization Details Recorded Time 6989 Darvocet- N medicatio n angioedem a Not available Not available 01/02/2023 07959 UNK Not Available [facility] 04:52:07 Medications Name Sig Start Date Stop Date Status Note LastModified by Organization Details LastModified Time Prescriptio n - Renewal active Not Available Not Available Not Available insulin syringe 31g x 5/16 1 ml mi insulin syringe 31g x 5/16 1 ml mi sc active Not Available Not Available Not Available cyclobenzap rine 10 mg tablet TAKE 1 TABLET BY MOUTH THREE TIMES DAILY 02/15 completed Not Available Not Available Not Available promethazin e-DM 6.25 mg-15 mg/5 mL oral syrup TK 5 ML PO Q 4 H PRN COUGH 03/16 completed Not Available Not Available Not Available prednisone 10 mg tablet take [id number], [id number], [id number] active Not Available Not Available No t Available cetirizine 10 mg tablet TAKE 1 TABLET BY MOUTH EVERY MORNING active Not Available Not Available No t Available azithromyci n 250 mg tablet TAKE 2 TABLETS (500 MG) BY ORAL ROUTE ONCE DAILY FOR 1 DAY THEN 1 TABLET (250 MG) BY ORAL ROUTE ONCE DAILY FOR 4 DAYS active Not Available Not Available No t Available ibuprofen 800 mg tablet TK 1 T PO Q 8 H. HOLD UNTIL KETOROLAC DOSE COMPLETE IF ORDERED. 02/15 completed Not Available Not Available Not Available fluconazole 150 mg tablet active Not Available Not Available Not Available benzonatate 200 mg capsule TK 1 C PO TID 04/09 completed Not Available Not Available Not Available hydrocodone 5 mg-acetamin ophen 325 mg tablet TK 1 T PO Q 4 H PRN P active Not Available Not Available No t Available prednisone 20 mg tablet TK 1 T PO D 03/16 completed Not Available Not Available Not Available sertraline 100 mg tablet TAKE 1 TABLET BY MOUTH EVERY DAY IN THE MORNING active Not Available Not Available No t Available phentermine 15 mg capsule TAKE 1 CAPSULE BY MOUTH EVERY MORNING 06/28 completed Not Available Not Available Not Available metronidazo le 500 mg tablet active Not Available Not Available Not Available phentermine 37.5 mg tablet TAKE 1 TABLET BY MOUTH EVERY MORNING 02/15 completed Not Available Not Available Not Available ciprofloxac in 500 mg tablet TK 1 T PO BID PRN 02/16 completed Not Available Not Available Not Available liothyronin e 5 mcg tablet TAKE 1 TABLET BY MOUTH TWICE DAILY AROUND THE CLOCK active Not Available Not Available No t Available doxycycline monohydrate 100 mg tablet 03/16 completed Not Available Not Available Not Available levothyroxi ne 88 mcg tablet TAKE 1 TABLET BY MOUTH EVERY DAY. 2022 active Not Available Not Available Not Avai lable benzonatate 100 mg capsule 03/16 completed Not Available Not Available Not Available cyanocobala min (vit B-12) 1,000 mcg/mL injection solution ADMINISTE R 1 ML UNDER THE SKIN EVERY WEEK IN THE MORNING 2022 active Not Available Not Available Not Avai lable prednisone 50 mg tablet 03/16 completed Not Available Not Available Not Available liothyronin e 50 mcg tablet TK 1 T PO QD 06/13 completed Not Available Not Available Not Available Synthroid 75 mcg tablet TK 1 T PO QAM 03/15 completed Not Available Not Available Not Available insulin syringe U-100 with needle 1 mL 31 gauge x 5/16 INJECT B12 INJECTION S ONCE WEEKLY SUBCUTANE OUS FOR 90 DAYS active Not Available Not Available No t Available diclofenac sodium 50 mg tablet,wendy yed release TK 1 T PO BID 06/28 completed Not Available Not Available Not Available ergocalcife rol (vitamin D2) 1,250 mcg (50,000 unit) capsule TAKE 1 CAPSULE BY MOUTH EVERY WEEK IN THE MORNING 02/15 completed Not Available Not Available Not Available fluticasone propionate 50 mcg/actuati on nasal spray,suspe nsion SHAKE LIQUID AND USE 2 SPRAYS NASALLY EVERY DAY AT DINNER active Not Available Not Available No t Available sertraline 50 mg tablet TAKE 1 TABLET BY MOUTH EVERY DAY 06/28 completed Not Available Not Available Not Available loratadine 10 mg tablet TK 1 T PO D 06/03 completed Not Available Not Available Not Available amoxicillin 875 mg-potassiu m clavulanate 125 mg tablet TK 1 T PO Q 12 H FOR 7 DAYS active Not Available Not Available No t Available Ventolin HFA 90 mcg/actuati on aerosol inhaler INL 2 PFS PO Q 4 TO 6 H PRF SOB active Not Available Not Available No t Available cyclobenzap rine 5 mg tablet Take 1 tablet 3 times a day by oral route as needed for 10 days. active Not Available Not Available No t Available iron 06/28 completed Not Available Not Available Not Available cholecalcif sunil (vitamin D3) 50 mcg (2,000 unit) capsule TK 2 CS PO QAM active Not Available Not Available No t Available Ozempic 0.25 mg or 0.5 mg (2 mg/1.5 mL) subcutaneou s pen injector INJECT 0.5MG UNDER THE SKIN EVERY WEEK AT DINNER 06/28 completed Not Available Not Available Not Available Ozempic 0.25 mg or 0.5 mg (2 mg/3 mL) subcutaneou s pen injector Inject by subcutane ous route for 60 days. 2022 active Not Available Not Available Not Avai lable Vitals Date Recorded Body mass index (BMI) Body height Oxygen saturation Oxygen saturation in Arterial blood by Pulse oximetry Heart rate Body temperature Body weight Systolic blood pressure Diastolic blood pressure Provider Name and Address Organization Details Last Updated DateTime 2 32.2 kg/m2 157.48 cm 98 % 98 % 74 /min 97.1 [degF] 67953.2 6 g 120 mm[Hg] 70 mm[Hg] Not Available [facility] 3 04:45:04 Date Recorded Body mass index (BMI) Body height Oxygen saturation Oxygen saturation in Arterial blood by Pulse oximetry Heart rate Body temperature Body weight Systolic blood pressure Diastolic blood pressure Provider Name and Address Organization Details Last Updated DateTime 2 31.5 kg/m2 157.48 cm 97 % 97 % 75 /min 98.2 [degF] 82140.8 9 g 120 mm[Hg] 80 mm[Hg] Not Available [facility] 3 04:45:04 Date Recorded Body mass index (BMI) Body height Oxygen saturation Oxygen saturation in Arterial blood by Pulse oximetry Heart rate Body temperature Body weight Systolic blood pressure Diastolic blood pressure Provider Name and Address Organization Details Last Updated DateTime 2 29.8 kg/m2 157.48 cm 98 % 98 % 71 /min 98.3 [degF] 76975.5 6 g 100 mm[Hg] 70 mm[Hg] Not Available [facility] 3 04:45:04 Date Recorded Body height Body mass index (BMI) Body weight Body temperature Heart rate Systolic blood pressure Diastolic blood pressure Provider Name and Address Organization Details Last Updated DateTime 3 157.48 cm 28.3 kg/m2 32404.8 2 g 98.4 [degF] 66 /min 106 mm[Hg] 75 mm[Hg] HÉCTOR Cruz [facility] 3 15:40:06 Date Recorded Body height Body mass index (BMI) Body weight Heart rate Systolic blood pressure Diastolic blood pressure Provider Name and Address Organization Details Last Updated DateTime 3 157.48 cm 29.4 kg/m2 53652.3 7 g 80 /min 106 mm[Hg] 71 mm[Hg] Yana Cesilia [facility] 3 14:24:48 Social History Question Answer Notes LastModified by Organizat ion Details LastModified Time Tobacco Smoking Status Never Smoker Not Available [facility] 01/02/2023 04:30:30 What Is Your Level Of Alcohol Consumption? None [id number] Information not available 01/02/2023 What Is Your Level Of Caffeine Consumption? Moderate [id number] Information not available 01/02/2023 How Much Tobacco Do You Chew? None [id number].[id number] Information not available 01/02/2023 In The 14 Days Before Symptom Onset, Have You Had Close Contact With A Laboratory-confir med COVID-19 While That Case Was Ill? No [id number] Information not available 01/02/2023 In The 14 Days Before Symptom Onset, Have You Had Close Contact With A Person Who Is Under Investigation For COVID-19 While That Person Was Ill? No [id number] Information not available 01/02/2023 What Type Of Diet Are You Following? REGULAR [id number].[id number] Information not available 01/02/2023 Which Illicit Or Recreational Drugs Have You Used? None MIGRATION.[id number] Information not available 01/02/2023 Do You Or Have You Ever Used E-cigarettes Or Vape? 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 MIGRATION.[id number] 6161 Information not available 01/02/2023 Do You Use Any Illicit Or Recreational Drugs? No MIGRATION.[id number] 9104 Information not available 01/02/2023 Have You Recently Traveled Abroad? No MIGRATION.[id number] 4257 Information not available 01/02/2023 Do You Have Any Dietary Restrictions? No MIGRATION.930259 2958 Information not available 01/02/2023 Sex: Female Functional Status None recorded. Mental Status None recorded. Family History Relationship Description Onset Age of this Age Resolved Age Notes LastModified by Organization Details LastModified Time Maternal Grandmother Alzheimer's disease [id number] Not available 01/02/2023 04:41:36 Notes:Thyroid disease runs i n the family-one on mothers side and one on dad's Medical History Condition Response ANEMIA/BLOOD DISORDER Y HYPOTHYROIDISM Y Gynecological HistoryNo gynecological history recorded. Obstetrics History GPAL:G 0 P 0 0 0 0 Past Encounters Encounter ID Performer Location Encounter Start Date Encounter Closed Date Diagnosis/Indication Diagnosis SNOMED-CT Code Diagnosis ICD10 Code Diagnosis Note [id number] [facility] [address] [place] [address] 02/14/2021 00:00:00 02/14/2021 09:46:26 [id number] [facility] [address] [place] [address] 08/15/2021 00:00:00 08/15/2021 10:04:40 [id number] [facility] [address] [place] [id number] 11/21/2021 00:00:00 11/21/2021 13:50:48 [id number] [facility] [address] [place] [address] 01/16/2022 00:00:00 01/16/2022 11:14:41 [id number] [facility] [address] [place] [address] 05/01/2022 00:00:00 05/01/2022 16:30:08 [id number] [facility] [address] [place] [address] 09/14/2022 00:00:00 09/14/2022 17:41:06 [id number] Andrea Bone MD [facility] [address] [place] [address] 02/15/2023 15:23:56 02/15/2023 16:14:55 Hypothyroidism 26468570 E03.9 TSH and FT4 in ideal range- continue on synthroid 88 mcg daily and liothyroni ne 5 mcg twice daily. She was reminded to take her synthroid on empty stomach with glass of water and wait one hour to eat or have her coffee in morning and up to 4 hours if ever taking any heartburn or reflux medication s to help optimize absorption . Discussed paleo like diet with restrictio n of GMOs to help with energy and to optimize absorption of vitamins and minerals and reduce inflammati on. Prediabetes [id number] R7 3.03 A1C in ideal range- continue on ozempic 0.5 mg once weekly. Discussed carb counting and how to read food labels. Recommende d patient to utilize the diabetesfo OnAppb.com from the ADA website to help with food preparatio n as this presents ideal carb content per meal so this will make carb counting much easier for patient. Recommende d she incorporat e natural insulin cloth mercerizing supervisor s such as pears, apples, cinnamon, khai and sweet potatoes to help mobilize her endogenous insulin. Recommende d up to 150 minutes of moderate level activity/e xercise weekly. Perimenopausal state 504 [id number] 82012 Z78.0 Send for full hormone panel to screen for perimenopa usal changes. Discussed scream cream as treatment option for low libido and decreased sensation. Spent up to 26 minutes preparing to see the patient (eg, review of tests), obtaining and/or reviewing separately obtained history, performing a medically appropriat e examinatio n and evaluation , counseling and educating the patient, ordering medication s, tests, along with documentin g clinical informatio n in the electronic health record, independen tly interpreti ng results and communicat ing results to the patient. RTC in 4-5 months. Patient was provided a handwritte n lab order which contains our fax number. If she chooses to go outside of the [facility] system to obtain labwork she was advised to provide our fax number and my informatio n to the lab she will be obtaining labwork from in order to have her labs properly forwarded over for me to review so there is no loss of follow up due to use of outside network. She was also advised to contact our clinic informing us that she has completed her labwork so we are aware we will need to reach out to the appropriat e laboratory to request her results be forwarded to us so I might have the ability to review and make further medical decision making in her case. She voiced understand ing. [id number] Andrea Bone MD [facility] [address] [place] [address] 06/28/2023 14:09:03 06/28/2023 14:46:42 Hypothyroidism [id number] E03.9 TSH and FT4 in ideal range- continue on synthroid 88 mcg daily and liothyroni ne 5 mcg twice daily. She was reminded to take her synthroid on empty stomach with glass of water and wait one hour to eat or have her coffee in morning and up to 4 hours if ever taking any heartburn or reflux medication s to help optimize absorption . Discussed paleo like diet with restrictio n of GMOs to help with energy and to optimize absorption of vitamins and minerals and reduce inflammati on. Generalize d anxiety disorder [id number] F41.1 She is having more anxiety and recent divorce. Requesting dose increase- will uptitrate sertraline to 100 mg daily as patient tolerating well. She is aware she has perimenopa usal changes and not wanting to go on HRT at this time. She has no SIs or HIs and will follow up with PCP for further management . Vitamin B1 2 deficiency (non anemic) [id number] E53.8 Continue on B12 injections for energy and focus. Seasonal a llergic rhinitis [id number] J30.2 Refill cetirizine . Spent up to 25 minutes preparing to see the patient (eg, review of tests), obtaining and/or reviewing separately obtained history, performing a medically appropriat e examinatio n and evaluation , counseling and educating the patient, ordering medication s, tests, along with documentin g clinical informatio n in the electronic health record, independen tly interpreti ng results and communicat ing results to the patient. Patient can be followed by PCP - she/he is aware of my resignatio n and last day of August 16. If needed his/her PCP can refer patient to another endocrinol ogist in the area. All questions /concerns answered and refills necessary at visit today. Health Concerns Section Related Observation LastModified by Organization Detai ls LastModified Time None Recorded Concern Status LastModified by Organization Details LastModified Time None Recorded Advance Directives Directive None Recorded Payers Encounter Date Sequence Insurance Name Policy Number Policy Thomason Covered Member ID Thomason Member ID Guarantor Name 02/15/2023 1 [place] [id number] Jo Vazquez [id number] Jo Vazquez 06/28/2023 1 [place] [id number] Jo Vazquez [id number] Jodianne Shukla Notes Date Note Type Note Provider Name and Address Organization Details Recorded Time 02/15/2023 text/html 48 yo female com es in for follow up in management of prediabetes, hypothyroidism and menopausal changes. last seen in Sep at that time we had patient continue on synthroid 88 mcg daily and liothyronine 5 mcg twice daily. we continued ozempic 0.5 mg once weekly. She is tolerating therapy well She had partial hysterectomy close to 3 years ago- no hormone therapy at this time. Sugars are running under 150 mg/dL She has lost over 20 pounds since her last visit. labs from 12/01/22:celiac negativeTSH of 0.142 uIU/mlFT4 of 1.36 ng/dLa1c 5.1%LFT normalCr normalinsulin 5.6 uUmLFT3 of 2.6 pg/MLfood allergy panel negative Andrea Bone MD [address] [address], [place], [address], [facility] 02/15/2023 17:03:24 06/28/2023 text/html 48 yo female com es in for follow up in management of hypothyroidism and prediabetes last seen in February at that time we continued synthroid 88 mcg daily and liothyronine 5 mcg twice daily. we continued ozempic 0.5 mg once weekly. However insurance will no longer cover the ozempic. She is taking sertraline 50 mg daily and feels it is not really helping her anxiety/depression. She is doing well with her thyroid, no palpitations or flutters. She has gained 6 pounds since her last visit. She does have mild heat intolerance. Her estrogen and progesterone are low so perimenopausal range but doesn't wish to do HRT at this time. labs from 05/01/23:testosterone 20 ng/dLdheas normalglucose 75 mg/dLCr normalLFT [id number] 4.6%FSH 37.5 mIU/ml and LH of 15.1 mIU/mlprogesterone <0.5 ng/MLestradiol 23 pg/mlFT3 of 3.7 pg/mlFT4 of 1.2 ng/dLTSH of 0.03 uIU/ml Andrea Bone MD [address] [facility] [address] [facility] [address], [place], [address], [employer] 06/28/2023 16:41:41 OBGyn Episode No OBEpisode recorded.
--- OUTSIDE RECORDS SUMMARY | 2025-01-17 15:17 | XMS_ITS ---
Author Organization [facility] Address [address] [place] [place] [address] Care Team Providers Care Drawing Kiln Operator Name Role Bernardino RomeoFlorina Primary Care Provider REASON FOR VISIT Estradiol Patch Refill Issue Encounters Encounter Location Date Provider Diagnosis [facility] - Florina Walters [address] [place] [address] 11/02/2024 Florina Walters Plan Of Treatment Next Appt Details Provider Name:Florina Walters, 12:50:00 PM, [address], [place], [address], Progress Notes * KIN VinRadha:1975 (49 yo F)Acc No.[id number]:11/02/2024 Patient: Jo ANGEL :1975 A ge:49 Y S ex:Female Address:[address], [place] [address] * true * Date: Generated for Printi ng/Faxing/eTransmitting on: 0 01/17/2025 03:16 PM CDT
[2025-01-17 15:51] VITALS: BP 120/67; PULSE 64; RESP 16; TEMP 36.6; O2SAT 99
--- OUTSIDE RECORDS SUMMARY | 2025-01-17 16:56 | XMS_ITS | Encounter Summary ---
Author Organization [facility] Address [address] [place] [address] Phone Care Team Providers Care Sieve Grader Tender Name Role Phone Brigitte Agrawal MD Primary Care Provider [phone] Encounter Details Date Type Department Care Team (Late st Contact Info) Description 12/26/2023 [facility] Scheduling [address] [place] [id number] Brigitte Agrawal MD [address] [place] [address] [address] [place] [address] Social History Tobacco Use Types Packs/Day Years [...] on filedocumented in this encounter Care Teams Sieve Grader Tender Relationship Specialty Start Date End Date Brigitte Agrawal MD [address] [place] [address] PCP - General Family Medicine 10/08/23 documented as of this encounter
--- OUTSIDE RECORDS SUMMARY | 2025-01-17 16:56 | XMS_ITS | Clinical Summary ---
Author Organization [facility] Address [address] [place] [address] Phone Care Team Providers Care Insurance Verifier Name Role Phone Brigitte Agrawal MD Primary Care Provider [phone] Allergies Active Allergy Reactions Criticality Noted Date [...] Comments Blood Pressure 118/74 12/04/2020 4:07 PM RESEARCH HOME ECONOMIST Pulse 67 12/04/2020 4:07 PM RESEARCH HOME ECONOMIST Temperature 36.3 C (97.4 F) 12/04/2020 4:07 PM RESEARCH HOME ECONOMIST Respiratory Rate 16 12/04/2020 4:07 PM RESEARCH HOME ECONOMIST Oxygen Saturation 97% 12/04/2020 4:07 PM RESEARCH HOME ECONOMIST Inhaled Oxygen Concentration - - Weight 74.8 kg (165 lb) 12/04/2020 4:07 PM RESEARCH HOME ECONOMIST Height 157.5 cm (5' 2 ) 12/04/2020 4:07 PM RESEARCH HOME ECONOMIST Body Mass Index 30.18 12/04/2020 4:07 PM RESEARCH HOME ECONOMIST Plan of Treatment Health Maintenance Due Date [...] CAD W MARLA Routine 12/19/2023 1:15 PM RESEARCH HOME ECONOMIST Visit for screening mammogram from Last 3 [...] Comparison is made to exam dated: 12/19/2023 [facility]. BREAST TISSUE:The tissue of left breast [...] signed by: Yvonne Peñaloza M.D. ab/:01/20/2024 14:59:50 Aircraft Sheet Metal Mechanic(s): RT Willa(R)(M), [facility]; DES Arrington, [facility] letter sent: Normal Exam Reading location: [facility] OVERALL STUDY BIRADS: 2 Benign Procedure Note [...] Comparison is made to exam dated: 12/19/2023 [facility]. BREAST TISSUE:The tissue of left breast [...] signed by: Yvonne Peñaloza M.D. ab/:01/20/2024 14:59:50 Aircraft Sheet Metal Mechanic(s): RT Willa(R)(M), [facility]; DES Arrington, [facility] letter sent: Normal Exam Reading location: [facility] OVERALL STUDY BIRADS: 2 Benign us Brigitte Agrawal MD [facility] MAMMO ORDERABLES Final Res ult * OZZY SCREENING BILATERAL DIGITAL W CAD W MARLA (12/19/2023 1:15 PM RESEARCH HOME ECONOMIST) Anatomical Region Laterality Modality breast Bilateral Mammography 12/19/2023 1:37 PM RESEARCH HOME ECONOMIST Narrative 12/23/2023 11:26 AM RESEARCH HOME ECONOMIST - OZZY SCREENING BILATERAL DIGITAL W CAD [...] results. Electronically signed by: Diana merrill/herminia:12/20/2023 16:49:59 Aircraft Sheet Metal Mechanic(s): RT Cristofer(R)(M), [facility] letter sent: Additional Imaging Reading location: [facility] BI-RADS: 0 Additional Imaging Evaluation Needed Procedure [...] results. Electronically signed by: Diana merrill/herminia:12/20/2023 16:49:59 Aircraft Sheet Metal Mechanic(s): RT Cristofer(R)(M), [facility] letter sent: Additional Imaging Reading location: [facility] BI-RADS: 0 Additional Imaging Evaluation Needed Brigitte Agrawal MD IMG MAMMO ORDERABLES Final Res ult from Last 3 Months or Most Recently Relevant to Health Maintenance Insurance [facility] Care Teams Insurance Verifier Relationship Specialty Start Date End Date Brigitte Agrawal MD [address] [place] [id number] PCP - General Family Medicine 10/08/23
--- NOTE | 2025-01-17 17:31 | ED_ITS ---
HPI - General Adult General Chief complaint: Neck Pain/Injury Stated complaint: neck pain Time Seen by Provider: 01/17/25 16:47 History of Present Illness HPI narrative: 41-year-old female presented to the emergency department for evaluation for left-sided neck pain. Patient reports that she has had increased tightness in her shoulder and has been doing a lot of painting of cabinets over the last few days. Patient states she was getting into the jeep last night when she felt a pop on her left lateral neck. Patient states then while she was at bingo she leaned back and felt a another pop and felt pain radiate from the left lateral side of her neck across her scalp and down her back. Patient denies any associated numbness or weakness with this. Patient denies any current headache. Patient denies any loss of bowel or bladder control. Related Data Home Medications ?Medication ?Instructions ?Recorded ?Confirmed ?Last Taken ?Type cholecalciferol (vitamin D3) 50 2,000 unit PO DAILY 07/21/20 07/21/20 Unknown History mcg (2,000 unit) capsule levothyroxine 88 mcg tablet 88 mcg PO DAILY 07/21/20 07/21/20 Unknown History (Synthroid) liothyronine 5 mcg tablet 5 mcg PO BID 07/21/20 07/21/20 Unknown History sertraline 50 mg tablet 50 mg PO DAILY 07/21/20 07/21/20 Unknown History Allergies Allergy/AdvReac Type Severity Reaction Status Date / Time propoxyphene Allergy Intermediate Hives / Verified 01/17/25 17:43 Red Face acetaminophen (From Allergy Other Verified 01/17/25 17:43 Darvocet-N) Review of Systems Review of Systems: All systems reviewed & are unremarkable except as noted in HPI and below [facility] Past Medical History Medical History (Updated 01/17/25 @ 18:23 by Constantino Honeycutt MD) Left bundle branch block Iron deficiency anemia Post-surgical hypothyroidism Graves disease With history of thyroid storm causing atrial fibrillation. She is now status post thyroidectomy. Surgical History Surgical History (Updated 07/21/20 @ 23:26 by Sparkle Garcia PA-C) History of myomectomy History of thyroidectomy For treatment of Graves disease. History of hysterectomy (~07/12/20) Robotic assisted laparoscopic hysterectomy with bilateral salpingectomy. History of tubal ligation Family History Family History (Updated 07/21/20 @ 23:26 by Sparkle Garcia PA-C) Mother Hypothyroidism Father Lymphoma Social History Social History (Updated 07/21/20 @ 23:27 by Sparkle Garcia PA-C) Social History: Surrogate decision maker: Jayden Shukla, spouse. Code status: Full code. Smoking status: Never smoker Alcohol intake: never Substance use: never Additional living arrangements comments: Patient lives with her spouse in [place]. They have 2 grown children. 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 Gender identity (if verbalized by the patient): Female Sexual Orientation (if Verbalized by the Patient): Straight or Heterosexual Spiritual care concerns: No Exam Narrative: APPEARANCE: Well appearing, no pain, no distress, well-nourished. HEAD: normocephalic, atraumatic. EYES: PERRLA/EOMI, conjunctivae clear. NOSE: Normal no drainage EARS:TMS clear with good light reflex. THROAT: Pharynx clear, no exudate. NECK: Supple. No adenopathy, no masses. RESPIRATORY: Airway patent, respirations nonlabored. Clear to auscultation bilaterally, no rales, rhonchi, wheezing. CARDIOVASCULAR: Regular rate and rhythm without murmurs rubs or gallops. ABDOMINAL: Soft, nontender, nondistended, normal bowel sounds MUSCULOSKELETAL: Reproducible left lateral trapezius tenderness to palpation into cervical spine. Tenderness at the origin of the occipital nerve NEURO: Alert. Cranial nerves II through XII intact. Good gait. Good coordination SKIN: Warm, dry. Normal Color Course Vital Signs Vital signs: Vital Signs Temperature 97.9 F 01/17/25 15:51 Pulse Rate 64 01/17/25 15:51 Respiratory Rate 16 01/17/25 15:51 Blood Pressure 120/67 01/17/25 15:51 Pulse Oximetry 99 01/17/25 15:51 Oxygen Delivery Room Air 01/17/25 15:51 Temperature 97.9 F 01/17/25 15:51 Pulse Rate 88 01/17/25 18:49 Respiratory Rate 19 01/17/25 18:49 Blood Pressure 138/85 01/17/25 18:49 Pulse Oximetry 100 01/17/25 18:49 Oxygen Delivery Room Air 01/17/25 15:51 Medical Decision Making MDM Narrative Medical decision making narrative: 41-year-old emergency department for evaluation for left lateral posterior neck pain with reproducible tenderness to the trapezius muscle. A CT brain CT cervical spine were negative. Patient's exam is consistent with a muscular strain of the cervical portion of the trapezius muscle. Patient was treated with Teasdale Flexeril the emergency department along with IM Toradol. Patient will be discharged home with Flexeril and Teasdale. All questions concerns were addressed patient was updated on the results of workup. Differential Diagnosis Differential Diagnosis: Cervical spine fracture, intracranial injury, subarachnoid hemorrhage, subdural hematoma, radiculopathy, trapezius strain Vital Signs Vital Signs: Vital Signs Temperature 97.9 F 01/17/25 15:51 Pulse Rate 64 01/17/25 15:51 Respiratory Rate 16 01/17/25 15:51 Blood Pressure 120/67 01/17/25 15:51 Pulse Oximetry 99 01/17/25 15:51 Oxygen Delivery Room Air 01/17/25 15:51 Temperature 97.9 F 01/17/25 15:51 Pulse Rate 88 01/17/25 18:49 Respiratory Rate 19 01/17/25 18:49 Blood Pressure 138/85 01/17/25 18:49 Pulse Oximetry 100 01/17/25 18:49 Oxygen Delivery Room Air 01/17/25 15:51 Imaging Data Radiologist's impression: Impressions Head CT 01/17/25 18:05 IMPRESSION: No acute intracranial process. Cervical Spine CT 01/17/25 18:07 IMPRESSION: No acute fracture or traumatic malalignment in the cervical spine. Mosaic attenuation in the lung apices which can be seen with asthma, bronchiolitis obliterans, hypersensitivity pneumonitis, and chronic thromboembolic disease. Discharge Plan Discharge Clinical Impression: Strain of cervical portion of left trapezius muscle Patient Disposition: Home, Self-Care Condition: Stable Instructions: Antibiotic Form, Cervical Strain (ED), Neck Pain (ED) Additional Instructions: Ibuprofen for pain control. Flexeril for muscle spasm. Teasdale as needed for additional pain control. Have close follow-up with your primary care physician. Patient Language: Andorran Prescriptions: New cyclobenzaprine 10 mg tablet 10 mg PO BID PRN (Reason: muscle spasm) Qty: 14 0RF hydrocodone-acetaminophen 5-325 mg tablet 1 tablet PO Q12H PRN (Reason: pain) Qty: 14 0RF No Action liothyronine 5 mcg tablet 5 mcg PO BID Rx Instructions: Every 12 hours levothyroxine [Synthroid] 88 mcg tablet 88 mcg PO DAILY sertraline 50 mg tablet 50 mg PO DAILY cholecalciferol (vitamin D3) 50 mcg (2,000 unit) capsule 2,000 unit PO DAILY amoxicillin-pot clavulanate 875-125 mg tablet 1 tablet PO Q12H 7 Days Qty: 14 0RF ibuprofen 800 mg tablet 800 mg PO TID PRN (Reason: pain) Qty: 20 0RF Follow-up/Referrals: PHYSICIAN NOT ON STAFF,NONSTAFF [Primary Care Provider] - Stand Alone Forms: Work/School Release IP
[2025-01-17] MEDS: HYDROcodone/acetaminophen (*CRX) 7.5-325 MG TABLET 1 TAB PO (17:44)
[2025-01-17] MEDS: CYCLOBENZAPRINE HCL 10 MG TABLET PO (17:47)
[2025-01-17] MEDS: KETOROLAC 30 MG/ML VIAL (*BKC) IM (18:45)
[2025-01-17 18:49] VITALS: BP 138/85; PULSE 88; RESP 19; O2SAT 100
== END 2025-01-17 18:52 | disposition home or self-care (01) ==
PROVIDERS: Emergency Provider Emergency Medicine
DX: S16.1XXA Strain of muscle, fascia and tendon at neck level, initial encounter (principal); X50.0XXA Overexertion from strenuous movement or load, initial encounter; E89.0 Postprocedural hypothyroidism; E05.00 Thyrotoxicosis with diffuse goiter without thyrotoxic crisis or storm
CPT/HCPCS: 70450; 72125; 96372; 99284; A9270; J1885

== ENCOUNTER 2025-09-10 07:50 | Day surgery (SDC) | payer OTHER, SELFPAY ==
--- OUTSIDE RECORDS SUMMARY | 2024-06-26 09:20 | XMS_ITS ---
[facility] Address [address] [place] [address] Care Team Providers Care Silk Worker Name Role Phone Florina Walters Primary Care Provider [phone] Encounters Encounter Location Date Provider Diagnosis [facility] - Florina Walters [address] [place] [address] 06/26/2024 Florina Walters Plan Of Treatment No Information Progress Notes * Satinder SANDERSONB:1975 (50 yo F)Acc No.[id number]:06/26/2024 Progress Notes Patient: Jo ANGEL Provider: Efren Walters MD :1975 A ge:49 Y S ex:Female Date:06/26/2024 Address:[address] [place] [address] Subjective: * Chief Complaints: * * Medical History: Objective: * Vitals: Assessment: Plan: * Treatment: * Billing Information: * Visit Code: * Procedure Codes: * Electronic signature of Neri Walters MD on 09/10/2025 at 07:54 AM DIRECTOR OF RADIO SERVICES Sign off status: Pending * Provider: Efren Walters MD Date: 06/26/2024 Generated for Yolanda mead/Rajani/eTransmitting on: 11/10/2024 07:54 AM DIRECTOR OF RADIO SERVICES
--- OUTSIDE RECORDS SUMMARY | 2024-09-19 15:00 | XMS_ITS ---
Author Organization [employer] [facility] Address [address] [place] [address] Care Team Providers Care Package Sealer Name Role Phone Florina Walters Primary Care Provider Migration, Provider Unavailable Unavailable [facility]AS[facility] VISIT [facility] Encounter Medications Medication SIG (Take, Route, Frequency, Duration) Notes Start Date End Date Status busPIRone HCl 10 MG 1 tab(s) orally 2 times a day; Duration: 90 days 04/16/2024 Active Dodex 1000 MCG/ML inject 1 cc subcutaneously once a week; Duration: 90 days 04/16/2024 Active Lyllana 0.05 MG/24 HOURS TWICE WEEKLY 1 PATCH TRANSDERMALLY 2 TIMES A WEEK; Duration: 90 DAYS *Please review and pick correct strength-formulat ion from [employer] options. If intended option is not shown, discontinue and re-order from Quick Search* 06/16/2024 Unknown Yuvafem 10 MCG 1 tab(s) intravaginally 2 times a week; Duration: 90 days 04/16/2024 Active Vitamin D (Ergocalciferol) 1.25 MG (39773 UT) 1 cap(s) orally once a week; Duration: 90 days 04/16/2024 Active Cetirizine HCl 10 MG 1 tab(s) orally once a day; Duration: 90 days 07/03/2024 Active Unithroid 88 MCG (0.088 MG) 1 TAB(S) ORALLY ONCE A DAY; Duration: 90 DAYS *Please review and pick correct strength-formulat ion from [employer] options. If intended option is not shown, discontinue and re-order from Quick Search* 04/16/2024 Active Estradiol 0.05 MG/24HR 1 PATCH transdermally 2 times a week; Duration: 90 days 04/16/2024 Active Liothyronine Sodium 5 MCG 1 tab(s) orally once a day; Duration: 90 days 07/03/2024 Active Wellbutrin XL 150 MG 1 tab(s) orally every 24 hours; Duration: 90 days 07/03/2024 Active Encounters Encounter Location Date Provider Diagnosis [place] [address] [place] [address] 09/19/2024 Provider Migration Hypothyroidism, unspecified E03.9 ; Menopausal and female climacteric states N95.1 ; Generalized anxiety disorder F41.1 and Other seasonal allergic rhinitis J30.2 Assessments Encounter Date Diagnosis (ICD Code) Assessment Notes Treatment Notes Treatment Clinical Notes Section Notes 09/19/2024 Hypothyroidism, unspecified (ICD-10 - E03.9) 09/19/2024 Menopausal and female climacteric states (ICD-10 - N95.1) 09/19/2024 Generalized anxiety disorder (ICD-10 - F41.1) 09/19/2024 Other seasonal allergic rhinitis (ICD-10 - J30.2) Plan Of Treatment Medication Medication Name Sig Start Date Stop Date Notes Cetirizine HCl 10 MG 1 tab(s) orally onc e a day; Duration: 90 days 07/03/2024 Estradiol 0.05 MG/24HR 1 PATCH transderm ally 2 times a week; Duration: 90 days 04/16/2024 Liothyronine Sodium 5 MCG 1 tab(s) orall y once a day; Duration: 90 days 07/03/2024 Wellbutrin XL 150 MG 1 tab(s) orally catalina ry 24 hours; Duration: 90 days 07/03/2024 Progress Notes * Satinder SANDERSONB:1975 (50 yo F)Acc No.[id number]:09/19/2024 Patient: Jo ANGEL Provider: Hany jonas Migration :1975 A ge:49 Y S ex:Female Date:09/19/2024 Address:[address] [place] [address] Pcp:Florina Walters Subjective: * Chief Complaints: * 1 . Multum To Medispan Conversion Encounter. * Medical History: * Medications: T aking Unithroid 88 MCG (0.088 MG) TABLET 1 TAB(S) ORALLY ONCE A DAY , Notes to Pharmacist: *Please review and pick [facility]. If intended option is not shown, discontinue and re-order from Quick Search*, Taking Yuvafem(Estradiol) 10 MCG Tablet 1 tab(s) intravaginally 2 times a week , Taking Vitamin D (Ergocalciferol) 1.25 MG (82648 UT) Capsule 1 cap(s) orally once a week , Taking busPIRone HCl 10 MG Tablet 1 tab(s) orally 2 times a day , Taking Dodex 1000 MCG/ML Solution inject 1 cc subcutaneously once a week , Unknown Lyllana 0.05 MG/24 HOURS TWICE WEEKLY FILM, EXTENDED RELEASE 1 PATCH TRANSDERMALLY 2 TIMES A WEEK , Notes to Pharmacist: *Please review and pick [facility]. If intended option is not shown, discontinue and re-order from Quick Search* Objective: * Vitals: Assessment: * Assessment: 1. H ypothyroidism, unspecified - E03.9 (Primary) 2 . M enopausal and female climacteric states - N95.1 3 . G eneralized anxiety disorder - F41.1 ? 4 . O ther seasonal allergic rhinitis - J30.2 Plan: * Treatment: 2. M enopausal and female climacteric states Refill Estradiol Patch Twice Weekly, 0.05 MG/24HR, 1 PATCH, transdermally, 2 times a week, 90 days, 25, Refills 1. 3. G eneralized anxiety disorder Start Wellbutrin XL Tablet Extended Release 24 Hour, 150 MG, 1 tab(s), orally, every 24 hours, 90 days, 90, Refills 1. 4. O ther seasonal allergic rhinitis Start Cetirizine HCl Tablet, 10 MG, 1 tab(s), orally, once a day, 90 days, 90 Tablet, Refills 1.? * Billing Information: * Visit Code: * Procedure Codes: * Electronic signature of Prov ider Migration on 09/10/2025 at 07:54 AM CLIENT DELIVERY SPECIALIST Sign off status: Pending * Provider: Hany jonas Migration Date: 11/19/2023 Generated for Yolanda mead/Rajani/Rosaitting on: 1 11/10/2024 07:54 AM CLIENT DELIVERY SPECIALIST
--- OUTSIDE RECORDS SUMMARY | 2024-09-19 15:00 | XMS_ITS ---
Author Organization [facility] Address [address] [place] [address] Care Team Providers Care Power Line Installer And Repairer Name Role Phone Florina Walters Primary Care Provider Migration, Provider Unavailable Unavailable REASON FOR VISIT Mult To [facility] Conversion Encounter Medications Medication SIG (Take, Route, Frequency, Duration) Notes Start Date End Date Status Dodex 1000 MCG/ML Solution inject 1 cc subcutaneously once a week; Duration: 90 days *Reorder from [employer] for eRx and Interaction Alerts* 04/16/2024 Active Lyllana 0.05 MG/24 HOURS TWICE WEEKLY FILM, EXTENDED RELEASE 1 PATCH TRANSDERMALLY 2 TIMES A WEEK; Duration: 90 DAYS *Please review and pick correct strength-formulat ion from [employer] options. If intended option is not shown, discontinue and re-order from Quick Search* *Pick strength-form from [employer] for eRX* 06/16/2024 Unknown Estradiol 0.05 MG/24HR Patch Twice Weekly 1 PATCH transdermally 2 times a week; Duration: 90 days 04/16/2024 Active Cetirizine HCl 10 MG Tablet 1 tab(s) orally once a day; Duration: 90 days 07/03/2024 Active busPIRone HCl 10 MG Tablet 1 tab(s) orally 2 times a day; Duration: 90 days 04/16/2024 Active Unithroid 88 MCG (0.088 MG) TABLET 1 TAB(S) ORALLY ONCE A DAY; Duration: 90 DAYS *Please review and pick correct strength-formulat ion from [employer] options. If intended option is not shown, discontinue and re-order from Quick Search* *Pick strength-form from [employer] for eRX* 04/16/2024 Active Yuvafem 10 MCG Tablet 1 tab(s) intravaginally 2 times a week; Duration: 90 days 04/16/2024 Active Wellbutrin XL 150 MG Tablet Extended Release 24 Hour 1 tab(s) orally every 24 hours; Duration: 90 days 07/03/2024 Active Liothyronine Sodium 5 MCG Tablet 1 tab(s) orally once a day; Duration: 90 days 07/03/2024 Active Vitamin D (Ergocalciferol) 1.25 MG (96136 UT) Capsule 1 cap(s) orally once a week; Duration: 90 days 04/16/2024 Active Encounters Encounter Location Date Provider Diagnosis [address] [id number] 09/19/2024 Provider Migration Hypothyroidism, unspecified E03.9 ; [...] Name Sig Start Date Stop Date Notes Estradiol 0.05 MG/24HR Patch Twice Weekly 1 PATCH transdermally 2 times a week; Duration: 90 days 04/16/2024 Cetirizine HCl 10 MG Tablet 1 tab(s) ora lly once a day; Duration: 90 days 07/03/2024 Wellbutrin XL 150 MG Tablet Extended Release 24 Hour 1 tab(s) orally every 24 hours; Duration: 90 days 07/03/2024 Liothyronine Sodium 5 MCG Tablet 1 tab(s) orally once a day; Duration: 90 days 07/03/2024 Progress Notes * Satinder SANDERSONB:1975 (50 yo F)Acc No.[id number]:09/19/2024 Patient: Jo Rowland Provider: Hany jonas Migration :1975 A ge:49 Y S ex:Female Date:09/19/2024 Address:[address] [place] [address] Pcp:Florina Walters Subjective: * Chief Complaints: * M ultum To Medispan Conversion Encounter * Medications: T akingUnithroid 88 MCG (0.088 MG) TABLET 1 TAB(S) ORALLY ONCE A DAY , Notes to Pharmacist: *Please review and pick correct [facility]. If intended option is not shown, discontinue and re-order from Quick Search* *[facility]form [facility] for [facility]*Yuvafem 10 MCG Tablet 1 tab(s) intravaginally 2 times a week Vitamin D (Ergocalciferol) 1.25 MG (44998 UT) Capsule 1 cap(s) orally once a week busPIRone HCl 10 MG Tablet 1 tab(s) orally 2 times a day Dodex 1000 MCG/ML Solution inject 1 cc subcutaneously once a week , Notes to Pharmacist: *[facility]*Taking Unithroid 88 MCG (0.088 MG) TABLET 1 TAB(S) ORALLY ONCE A DAY , Notes to Pharmacist: *Please review and pick correct strength[facility]ulation [facility]. If intended option is not shown, discontinue and re-order from Quick Search* *[facility] strength- form [facility] for [facility]*Taking Yuvafem 10 MCG Tablet 1 tab(s) intravaginally 2 times a week Taking Vitamin D (Ergocalciferol) 1.25 MG (52102 UT) Capsule 1 cap(s) orally once a week Taking busPIRone HCl 10 MG Tablet 1 tab(s) orally 2 times a day Taking Dodex 1000 MCG/ML Solution inject 1 cc subcutaneously once a week , Notes to Pharmacist: *[facility] for [facility] and Interaction Alerts*UnknownLyllana 0.05 MG/24 HOURS TWICE WEEKLY FILM, EXTENDED RELEASE 1 PATCH TRANSDERMALLY 2 TIMES A WEEK , Notes to Pharmacist: *Please review and pick correct [facility]ulation [facility]. If intended option is not shown, discontinue and re-order from Quick Search* *Pick strength-form from [facility] for eRX*Unknown Lyllana 0.05 MG/24 HOURS TWICE WEEKLY FILM, EXTENDED RELEASE 1 PATCH TRANSDERMALLY 2 TIMES A WEEK , Notes to Pharmacist: *Please review and pick correct strength-formulation from [facility] options. If intended option is not shown, discontinue and re-order from Quick Search* *Pick strength-form from [employer] for eRX* Assessment: * Assessment: 1. H ypothyroidism, unspecified [...] 90 days, 90 Tablet, Refills 1.? * Electronic signature of Prov ider Migration on 09/10/2025 at 07:53 AM PULP REFINER OPERATOR Sign off status: Pending * Provider: Hany jonas Migration Date: 11/19/2023 Generated for Yolanda mead/Rajani/Rosaitting on: 11/10/2024 07:53 AM PULP REFINER OPERATOR
--- OUTSIDE RECORDS SUMMARY | 2025-01-22 06:50 | XMS_ITS ---
Author Organization [facility] Address [address] [place] [address] Care Team Providers Care Chief Orthoptist Name Role Phone Florina Walters Primary Care Provider REASON FOR VISIT 3 month f/u bere Encounters Encounter Location Date Provider Diagnosis [facility] - Florina Walters [address] [place] [address] 01/22/2025 Florina Walters Plan Of Treatment No Information Progress Notes * Satinder SANDERSONB:1975 (50 yo F)Acc No.[id number]:01/22/2025 Progress Notes Patient: Jo ANGEL Provider: Efren Walters MD :1975 A ge:50 Y S ex:Female Date:01/22/2025 Address:[address] [place] [address] Subjective: * Chief Complaints: * 1 . 3 month f/u bere. * Medical History: Objective: * Vitals: Assessment: Plan: * Treatment: * Billing Information: * Visit Code: * Procedure Codes: * Electronic signature of Neri Walters MD on 09/10/2025 at 07:54 AM BUILDING PERFORMANCE CONSULTANT Sign off status: Pending * Provider: Efren Walters MD Date: 01/22/2025 Generated for Yolanda mead/Rajani/eTransmitting on: 11/10/2024 07:54 AM BUILDING PERFORMANCE CONSULTANT
--- OUTSIDE RECORDS SUMMARY | 2025-04-23 07:00 | XMS_ITS ---
Author Organization [facility] Address [address] [place], [place] [address] Care Team Providers Care Second Grade Teacher Name Role Phone Florina Walters Primary Care Provider REASON FOR VISIT 3 month f/u Encounters Encounter Location Date Provider Diagnosis [facility] [address] Walters [address] [place] [address] 04/23/2025 Florina Walters Plan Of Treatment No Information Progress Notes * Satinder SANDERSONB:1975 (50 yo F)Acc No.[id number]:04/23/2025 Progress Notes Patient: Jo Rowland Provider: Efren Walters MD :1975 A ge:50 Y S ex:Female Date:04/23/2025 Address:[address] [place] [address] Subjective: * Chief Complaints: * 3 month f/u * Electronic signature of Neri Walters MD on 09/10/2025 at 07:54 AM TARIFF COMPILING CLERK Sign off status: Pending * Provider: Efren Walters MD Date: 0 04/23/2025 Generated for Savagei ng/Fasahrag/eTransmitting on: 1 11/10/2024 07:54 AM TARIFF COMPILING CLERK
--- OUTSIDE RECORDS SUMMARY | 2025-05-18 03:40 | XMS_ITS ---
Author Organization [facility] Address [address] [place], [place] [address] Care Team Providers Care Utility Tender Carding Name Role Phone Florina Walters Primary Care Provider REASON FOR VISIT 3 month f/u Encounters Encounter Location Date Provider Diagnosis [facility] [address] Walters [address] [place] [address] 05/18/2025 Florina Walters Plan Of Treatment No Information Progress Notes * Satinder SANDERSONB:1975 (50 yo F)Acc No.[id number]:05/18/2025 Progress Notes Patient: Jo Rowland Provider: Efren Walters MD :1975 A ge:50 Y S ex:Female Date:05/18/2025 Address:[address] [place] [address] Subjective: * Chief Complaints: * 3 month f/u * Electronic signature of Neri Walters MD on 09/10/2025 at 07:54 AM OIL RIG ROUGHNECK Sign off status: Pending * Provider: Efren Walters MD Date: 0 05/18/2025 Generated for Savagei ng/Fasahrag/eTransmitting on: 1 11/10/2024 07:54 AM OIL RIG ROUGHNECK
[2025-08-30 12:00] VITALS: BMI 31.4
--- OUTSIDE RECORDS SUMMARY | 2025-09-10 07:54 | XMS_ITS | Patient Health Record ---
Author Organization [facility] Address [address] [address] Care Team Providers Care Power Checker Name Role Phone Florina Walters Primary Care Provider [phone] Migration, Provider Unavailable Unavailable Allergies No Known Allergies Reason For Referral No Information Medications Medication SIG (Take, Route, Frequency, Duration) Notes Start Date End Date Status Lyllana 0.05 MG/24 HOURS TWICE WEEKLY 1 PATCH TRANSDERMALLY 2 TIMES A WEEK; Duration: 90 DAYS *Please review and pick correct strength-formulat ion from [employer] options. If intended option is not shown, discontinue and re-order from Quick [employer]* 06/16/2024 Unknown Dodex 1000 MCG/ML inject 1 cc subcutaneously once a week; Duration: 90 days 04/16/2024 Active Liothyronine Sodium 5 MCG 1 tab(s) orally once a day; Duration: 90 days 07/03/2024 Unknown Yuvafem 10 MCG 1 tab(s) intravaginally 2 times a week; Duration: 90 days 04/16/2024 Active busPIRone HCl 10 MG 1 tab(s) orally 2 times a day; Duration: 90 days 04/16/2024 Active Vitamin D (Ergocalciferol) 1.25 MG (60449 UT) 1 cap(s) orally once a week; Duration: 90 days 04/16/2024 Active Wellbutrin XL 150 MG 1 tab(s) orally every 24 hours; Duration: 90 days 07/03/2024 Unknown Estradiol 0.05 MG/24HR 1 PATCH transdermally 2 times a week; Duration: 90 days 04/16/2024 Unknown Cetirizine HCl 10 MG 1 tab(s) orally once a day; Duration: 90 days 07/03/2024 Unknown Estradiol 0.05 MG/24HR 1 patch to skin Transdermal Two times a Week; Duration: 90 days 10/24/2024 Active Unithroid 88 MCG TAKE 1 TABLET BY MOUTH DAILY; Duration: 90 Active Problems Problem Type SNOMED Code ICD Code Onset Dates Problem Status W/U Status Risk Notes Problem Vitamin D deficiency (31813187) Vitamin D deficiency, unspecified (E55.9) Active confirmed Problem Hypothyroidism (09804725) Hypothyroidism, unspecified (E03.9) Active confirmed Problem Seasonal allergic rhinitis (720504605) Other seasonal allergic rhinitis (J30.2) Active confirmed Problem Obesity (882309862) Obesity, unspecified (E66.9) Active confirmed Problem Generalized anxiety disorder (38558516) Generalized anxiety disorder (F41.1) Active confirmed Problem Menopause (875335891) Menopausal and female climacteric states (N95.1) Active confirmed Vital Signs Heart Rate 71 /min 10/09/2024 Blood pressure diastolic 76 mm Hg 10/09/2024 Height 62 in 10/09/2024 Blood pressure systolic 113 mm Hg 10/09/2024 Weight 177.0 lbs 10/09/2024 BMI 32.37 kg/m2 10/09/2024 Encounters Encounter Location Date Provider Diagnosis [facility] - Florina Walters [address] [place] [address] 10/09/2024 Florina Walters Hypothyroidism, unspecified E03.9 ; Menopausal and female climacteric states N95.1 ; Vitamin D deficiency, unspecified E55.9 and Obesity, unspecified E66.9 [facility] Florina Walters [address] [place] [address] 01/22/[address] Florina Mohamud [facility] [address] [address] 09/19/2024 Provider Migration Hypothyroidism, unspecified E03.9 ; Menopausal and female climacteric states N95.1 ; Generalized anxiety disorder F41.1 and Other seasonal allergic rhinitis J30.2 [facility] [address] [place] [address] 10/09/2024 Florina PÉREZ [facility] - Florina Walters [address] [place] [address] 10/23/2024 Florina Romeo Menopausal and female climacteric states N95.1 [facility], [facility] - Florina Walters [address] [place] [address] 11/02/2024 Florina Romeo Assessments Encounter Date Diagnosis (ICD Code) Assessment Notes Treatment Notes Treatment Clinical Notes Section Notes 10/09/2024 Hypothyroidism, unspecified (ICD-10 - E03.9) 10/09/2024 Menopausal and female climacteric states (ICD-10 - N95.1) 09/19/2024 Hypothyroidism, unspecified (ICD-10 - E03.9) 09/19/2024 Menopausal and female climacteric states (ICD-10 - N95.1) 10/23/2024 Menopausal and female climacteric states (ICD-10 - N95.1) 10/09/2024 Vitamin D deficiency, unspecified (ICD-10 - E55.9) 10/09/2024 Obesity, unspecified (ICD-10 - E66.9) 09/19/2024 Generalized anxiety disorder (ICD-10 - F41.1) 09/19/2024 Other seasonal allergic rhinitis (ICD-10 - J30.2) 10/09/2024 Other Assessment and Plan: 1. Thyroid [...] ankle giving outPlan:- Consider referral to a cigarette seller for further evaluation and management- Recommend [id number] pain relievers as needed for joint pain [...] examination and/or evaluation, counseling and educating the patient/family/geriatric care manager, ordering medications, tests, or procedures, referring and communicating with other health rn complex care, documenting clinical information in the electronic or other health record, independently interpreting results and communicating results to the patient/family/geriatric care manager and care coordinating patient plan. Patient alert and oriented x 4 and aware of discussion noted above and in agreeance to plan in management of hypothyroidism, menopausal changes, vit D def, obesity/weight management. Plan Of Treatment No Information Insurance Providers Payer Name Payer Address Payer Phone Subscriber Number Group Number Insured Name Patient Relationship to Insured Coverage Start Date Coverage End Date [facility] [address] [place] [address] [id number] Jo Shukla Self - patient is the insured Medical (General) History Medical History History ICD Code THYROID Surgical History Surgery Date(Month/Year) partial hysterectomy
--- OUTSIDE RECORDS SUMMARY | 2025-09-10 07:54 | XMS_ITS | Data Portability ---
Author Organization [facility], Main Office Address [address] [place] [address] Care Team Providers Care Returned Goods Receiving Clerk Name Role Phone LISANDRA BRIGHT Primary Care Provider [phone] Assessment No assessment recorded. Plan of Treatment Reminders Order Date Submit Date Provider Last Modified By Organization Details Last Modified Time Details Appointments None recorded. Lab lh + FSH, serum 2022 023 [facility], [address], [place], [address], 3 14:03:20 estradiol, serum 2022 023 [facility], [address], [place], [address], 3 14:03:19 progesteron e, serum 2022 023 [facility], [address], [place], [address], 3 14:03:18 testosteron e, total, serum 2022 023 [facility], [address], [place], [address], 3 14:03:22 dhea-sulfat e, serum 2022 023 [facility], [address], [place], [address], 3 14:03:16 HbA1c (hemoglobin A1c), blood 2022 023 [facility], [address], [place], [address], 3 14:03:21 insulin, serum 2022 023 [facility], [address], [place], [address], 3 14:03:16 CMP, serum or plasma 2022 023 [facility], [address], [place], [address], 3 14:03:14 T3, free, serum or plasma 2022 023 [facility], [address], [place], [address], 3 14:03:17 T4, free, serum 2022 023 [facility], [address], [place], [address], 3 14:03:17 TSH, serum or plasma 2022 023 [facility], [address], [place], [address], 3 14:03:19 Referral None recorded. Procedures None recorded. Surgeries None recorded. Imaging None recorded. Medication Orders cyanocobala min (vit B-12) 1,000 mcg/mL injection solution 2022 023 [place] [id number], [address], [place], [place], [id number], 16:40:21 sertraline 100 mg tablet 2022 023 [facility] #98446, [address], [place], [place], [id number], 3 14:33:34 cetirizine 10 mg tablet 2022 023 [facility] #93788, [address], [place], [place], [id number], 3 16:40:21 levothyroxi ne 88 mcg tablet 2022 023 [facility] #18951, [address], [place], [place], [id number], 3 16:40:20 liothyronin e 5 mcg tablet 2022 023 [facility], [address], [place], [place], [id number], 3 16:40:21 Patient TargetsNo targets recorded. Patient [...] Third trime ster 0.43- 2.91 Not Available [facility] [address] [place], [address], 01/15/2022 14:51:37 01/13/20 22 01/15/2022 TSH+F REE T4 T4, free 1.1 NG/dL 0.8-1. 8 normal Not Available [facility] [address] [place], [address], 01/15/2022 14:51:37 01/13/20 22 01/15/2022 T3, FREE T3, free 2.9 pg/mL 2.3-4. 2 normal Not Available [address], [address], 01/15/2022 14:51:36 01/13/20 22 01/15/2022 VITAM IN [...] pg/mL will have sympt oms. Not Available [address], [address], 01/15/2022 14:51:35 01/13/20 22 01/15/2022 VITAM IN B12/F OLATE , SERUM PANEL folate, serum 10.2 NG/mL normal Refer ence Range Low: <3.4 Borde rline : 3.4-5 .4 Jovanna l: >5.4 Not Available [address], [address], 01/15/2022 14:51:35 01/13/20 22 01/15/2022 THYRO ID PEROX IDASE ANTIB ODIES thyroid peroxidase antibodies 9 IU/mL <9 high Not Available [facility] [address], [address], 01/15/2022 14:51:35 01/13/20 22 01/15/2022 COMPR EHENS EMIL METAB OLIC PANEL glucose 77 mg/dL 65-99 normal Fasti ng refer ence inter jalil Not Available [facility] [address] [place], [address], 01/15/2022 14:51:34 01/13/20 22 01/15/2022 COMPR EHENS EMIL METAB OLIC PANEL urea nitrogen (BUN) 17 mg/dL 7-25 normal Not Available [address], [address], 01/15/2022 14:51:34 01/13/20 22 01/15/2022 COMPR EHENS EMIL METAB OLIC PANEL creatinine 0.61 mg/dL 0.50-1 .10 normal Not Available [address], [address], 01/15/2022 14:51:34 01/13/20 22 01/15/2022 COMPR EHENS EMIL METAB OLIC PANEL eGFR non-afr. german 109 mL/mi n/1.7 3m2 > or = 60 normal Not Available [address], [address], 01/15/2022 14:51:34 01/13/20 22 01/15/2022 COMPR EHENS EMIL METAB OLIC PANEL eGFR 127 mL/mi n/1.7 3m2 > or = 60 normal Not Available [address], [address], 01/15/2022 14:51:34 01/13/20 22 01/15/2022 COMPR EHENS EMIL METAB OLIC PANEL BUN/creatini ne ratio not applic able (calc ) 6-22 Not Available [address], [address], 01/15/2022 14:51:34 01/13/20 22 01/15/2022 COMPR EHENS EMIL METAB OLIC PANEL sodium 137 mmol/ L 135-14 6 normal Not Available [address], [address], 01/15/2022 14:51:34 01/13/20 22 01/15/2022 COMPR EHENS EMIL METAB OLIC PANEL potassium 3.6 mmol/ L 3.5-5. 3 normal Not Available [address], [address], 01/15/2022 14:51:34 01/13/20 22 01/15/2022 COMPR EHENS EMIL METAB OLIC PANEL chloride 103 mmol/ L 98-110 normal Not Available [address], [address], 01/15/2022 14:51:34 01/13/20 22 01/15/2022 COMPR EHENS EMIL METAB OLIC PANEL carbon dioxide 28 mmol/ L 20-32 normal Not Available [address], [address], 01/15/2022 14:51:34 01/13/20 22 01/15/2022 COMPR EHENS EMIL METAB OLIC PANEL calcium 9.4 mg/dL 8.6-10 .2 normal Not Available [address], [address], 01/15/2022 14:51:34 01/13/20 22 01/15/2022 COMPR EHENS EMIL METAB OLIC PANEL protein, total 6.7 g/dL 6.1-8. 1 normal Not Available [address], [address], 01/15/2022 14:51:34 01/13/20 22 01/15/2022 COMPR EHENS EMIL METAB OLIC PANEL albumin 4.4 g/dL 3.6-5. 1 normal Not Available [address], [address], 01/15/2022 14:51:34 01/13/20 22 01/15/2022 COMPR EHENS EMIL METAB OLIC PANEL globulin 2.3 g/dL_ (calc ) 1.9-3. 7 normal Not Available [address], [address], 01/15/2022 14:51:34 01/13/20 22 01/15/2022 COMPR EHENS EMIL METAB OLIC PANEL albumin/glob ulin ratio 1.9 (calc ) 1.0-2. 5 normal Not Available [address], [address], 01/15/2022 14:51:34 01/13/20 22 01/15/2022 COMPR EHENS EMIL METAB OLIC PANEL bilirubin, total 0.6 mg/dL 0.2-1. 2 normal Not Available [address], [address], 01/15/2022 14:51:34 01/13/20 22 01/15/2022 COMPR EHENS EMIL METAB OLIC PANEL alkaline phosphatase 61 U/L 31-125 normal Not Available [address], [address], 01/15/2022 14:51:34 01/13/20 22 01/15/2022 COMPR EHENS EMIL METAB OLIC PANEL AST 13 U/L 10-35 normal Not Available [address], [address], 01/15/2022 14:51:34 01/13/20 22 01/15/2022 COMPR EHENS EMIL METAB OLIC PANEL ALT 12 U/L 6-29 normal Not Available [address], [address], 01/15/2022 14:51:34 04/26/20 22 04/27/2022 TSH+F REE T4 TSH 0.87 mIU/L normal Refer ence Range > or = 20 Years 0.40- 4.50 Pregn celia Range s First trime ster 0.26- 2.66 Secon d trime ster 0.55- 2.73 Third trime ster 0.43- 2.91 Not Available [address], [address], 04/27/2022 15:38:45 04/26/20 22 04/27/2022 TSH+F REE T4 T4, free 1.1 NG/dL 0.8-1. 8 normal Not Available [address], [address], 04/27/2022 15:38:45 04/26/20 22 04/27/2022 T3, FREE T3, free 2.8 pg/mL 2.3-4. 2 normal Not Available [address], [address], 04/27/2022 15:38:45 04/26/20 22 04/27/2022 VITAM IN B12/F OLATE , SERUM PANEL vitamin B12 997 pg/mL 200-11 00 normal Not Available [address], [address], 04/27/2022 15:38:44 04/26/20 22 04/27/2022 VITAM IN B12/F OLATE , SERUM PANEL folate, serum >24.0 NG/mL normal Refer ence Range Low: <3.4 Borde rline : 3.4-5 .4 Jovanna l: >5.4 Not Available [address], [address], 04/27/2022 15:38:44 04/26/20 22 04/27/2022 THYRO ID PEROX IDASE ANTIB ODIES thyroid peroxidase antibodies 8 IU/mL <9 normal Not Available [address], [address], 04/27/2022 15:38:43 04/26/20 22 04/27/2022 COMPR EHENS EMIL METAB OLIC PANEL glucose 91 mg/dL 65-99 normal Fasti ng refer ence inter jalil Not Available [address], [address], 04/27/2022 15:38:42 04/26/20 22 04/27/2022 COMPR EHENS EMIL METAB OLIC PANEL urea nitrogen (BUN) 19 mg/dL 7-25 normal Not Available [address], [address], 04/27/2022 15:38:42 04/26/20 22 04/27/2022 COMPR EHENS EMIL METAB OLIC PANEL creatinine 0.66 mg/dL 0.50-1 .10 normal Not Available [address], [address], 04/27/2022 15:38:42 04/26/20 22 04/27/2022 COMPR EHENS EMIL METAB OLIC PANEL eGFR non-afr. german 106 mL/mi n/1.7 3m2 > or = 60 normal Not Available [address], [address], 04/27/2022 15:38:42 04/26/20 22 04/27/2022 COMPR EHENS EMIL METAB OLIC PANEL eGFR 123 mL/mi n/1.7 3m2 > or = 60 normal Not Available [address], [address], 04/27/2022 15:38:42 04/26/20 22 04/27/2022 COMPR EHENS EMIL METAB OLIC PANEL BUN/creatini ne ratio not applic able (calc ) 6-22 Not Available [address], [address], 04/27/2022 15:38:42 04/26/20 22 04/27/2022 COMPR EHENS EMIL METAB OLIC PANEL sodium 139 mmol/ L 135-14 6 normal Not Available [address], [address], 04/27/2022 15:38:42 04/26/20 22 04/27/2022 COMPR EHENS EMIL METAB OLIC PANEL potassium 4.2 mmol/ L 3.5-5. 3 normal Not Available [address], [address], 04/27/2022 15:38:42 04/26/20 22 04/27/2022 COMPR EHENS EMIL METAB OLIC PANEL chloride 105 mmol/ L 98-110 normal Not Available [address], [address], 04/27/2022 15:38:42 04/26/20 22 04/27/2022 COMPR EHENS EMIL METAB OLIC PANEL carbon dioxide 24 mmol/ L 20-32 normal Not Available [address], [address], 04/27/2022 15:38:42 04/26/20 22 04/27/2022 COMPR EHENS EMIL METAB OLIC PANEL calcium 9.6 mg/dL 8.6-10 .2 normal Not Available [address], [address], 04/27/2022 15:38:42 04/26/20 22 04/27/2022 COMPR EHENS EMIL METAB OLIC PANEL protein, total 6.8 g/dL 6.1-8. 1 normal Not Available [address], [address], 04/27/2022 15:38:42 04/26/20 22 04/27/2022 COMPR EHENS EMIL METAB OLIC PANEL albumin 4.5 g/dL 3.6-5. 1 normal Not Available [address], [address], 04/27/2022 15:38:42 04/26/20 22 04/27/2022 COMPR EHENS EMIL METAB OLIC PANEL globulin 2.3 g/dL_ (calc ) 1.9-3. 7 normal Not Available [address], [address], 04/27/2022 15:38:42 04/26/20 22 04/27/2022 COMPR EHENS EMIL METAB OLIC PANEL albumin/glob ulin ratio 2.0 (calc ) 1.0-2. 5 normal Not Available [address], [address], 04/27/2022 15:38:42 04/26/20 22 04/27/2022 COMPR EHENS EMIL METAB OLIC PANEL bilirubin, total 0.5 mg/dL 0.2-1. 2 normal Not Available [address], [address], 04/27/2022 15:38:42 04/26/20 22 04/27/2022 COMPR EHENS EMIL METAB OLIC PANEL alkaline phosphatase 57 U/L 31-125 normal Not Available [address], [address], 04/27/2022 15:38:42 04/26/20 22 04/27/2022 COMPR EHENS EMIL METAB OLIC PANEL AST 13 U/L 10-35 normal Not Available [address], [address], 04/27/2022 15:38:42 04/26/20 22 04/27/2022 COMPR EHENS EMIL METAB OLIC PANEL ALT 11 U/L 6-29 normal Not Available [address], [address], 04/27/2022 15:38:42 06/12/20 22 06/14/2022 TSH+F REE T4 TSH 0.98 mIU/L normal Refer ence Range > or = 20 Years 0.40- 4.50 Pregn celia Range s First trime ster 0.26- 2.66 Secon d trime ster 0.55- 2.73 Third trime ster 0.43- 2.91 Not Available [address], [address], 06/14/2022 16:58:28 06/12/20 22 06/14/2022 TSH+F REE T4 T4, free 1.1 NG/dL 0.8-1. 8 normal Not Available [address], [address], 06/14/2022 16:58:28 06/12/20 22 06/14/2022 T3, FREE T3, free 2.3 pg/mL 2.3-4. 2 normal Not Available [address], [address], 06/14/2022 16:58:28 06/12/20 22 06/14/2022 VITAM IN B12/F OLATE , SERUM PANEL vitamin B12 >2000 pg/mL 200-11 00 high Not Available [address], [address], 06/14/2022 16:58:28 06/12/20 22 06/14/2022 VITAM IN B12/F OLATE , SERUM PANEL folate, serum 21.9 NG/mL normal Refer ence Range Low: <3.4 Borde rline : 3.4-5 .4 Jovanna l: >5.4 Not Available [address], [address], 06/14/2022 16:58:28 06/12/20 22 06/14/2022 THYRO ID PEROX IDASE ANTIB ODIES thyroid peroxidase antibodies 10 IU/mL <9 high Not Available [address], [address], 06/14/2022 16:58:27 06/12/20 22 06/14/2022 COMPR EHENS EMIL METAB OLIC PANEL glucose 77 mg/dL 65-99 normal Fasti ng refer ence inter jalil Not Available [facility] [address] [place], [address], 06/14/2022 16:58:27 06/12/20 22 06/14/2022 COMPR EHENS EMIL METAB OLIC PANEL urea nitrogen (BUN) 16 mg/dL 7-25 normal Not Available [address], [address], 06/14/2022 16:58:27 06/12/20 22 06/14/2022 COMPR EHENS EMIL METAB OLIC PANEL creatinine 0.77 mg/dL 0.50-0 .99 normal Not Available [address], [address], 06/14/2022 16:58:27 06/12/20 22 06/14/2022 COMPR EHENS EMIL METAB OLIC PANEL eGFR 96 mL/mi n/1.7 3m2 > or = 60 normal The eGFR is based on the CKD-E PI 2020 equat ion. To calcu late the new eGFR from a previ ous Creat inine or Cysta tin C resul t, go to https ://whitney kramer/alexis waite/ kdoqi /gfr% 5Fcal culat or Not Available [address], [address], 06/14/2022 16:58:27 06/12/20 22 06/14/2022 COMPR EHENS EMIL METAB OLIC PANEL BUN/creatini ne ratio not applic able (calc ) 6-22 Not Available [facility] [address] [place], [address], 06/14/2022 16:58:27 06/12/20 22 06/14/2022 COMPR EHENS EMIL METAB OLIC PANEL sodium 137 mmol/ L 135-14 6 normal Not Available [address], [address], 06/14/2022 16:58:27 06/12/20 22 06/14/2022 COMPR EHENS EMIL METAB OLIC PANEL potassium 4.4 mmol/ L 3.5-5. 3 normal Not Available [address], [address], 06/14/2022 16:58:27 06/12/20 22 06/14/2022 COMPR EHENS EMIL METAB OLIC PANEL chloride 105 mmol/ L 98-110 normal Not Available [address], [address], 06/14/2022 16:58:27 06/12/20 22 06/14/2022 COMPR EHENS EMIL METAB OLIC PANEL carbon dioxide 26 mmol/ L 20-32 normal Not Available [address], [address], 06/14/2022 16:58:27 06/12/20 22 06/14/2022 COMPR EHENS EMIL METAB OLIC PANEL calcium 9.6 mg/dL 8.6-10 .2 normal Not Available [address], [address], 06/14/2022 16:58:27 06/12/20 22 06/14/2022 COMPR EHENS EMIL METAB OLIC PANEL protein, total 6.8 g/dL 6.1-8. 1 normal Not Available [address], [address], 06/14/2022 16:58:27 06/12/20 22 06/14/2022 COMPR EHENS EMIL METAB OLIC PANEL albumin 4.4 g/dL 3.6-5. 1 normal Not Available [address], [address], 06/14/2022 16:58:27 06/12/20 22 06/14/2022 COMPR EHENS EMIL METAB OLIC PANEL globulin 2.4 g/dL_ (calc ) 1.9-3. 7 normal Not Available [address], [address], 06/14/2022 16:58:27 06/12/20 22 06/14/2022 COMPR EHENS EMIL METAB OLIC PANEL albumin/glob ulin ratio 1.8 (calc ) 1.0-2. 5 normal Not Available [address], [address], 06/14/2022 16:58:27 06/12/20 22 06/14/2022 COMPR EHENS EMIL METAB OLIC PANEL bilirubin, total 0.6 mg/dL 0.2-1. 2 normal Not Available [address], [address], 06/14/2022 16:58:27 06/12/20 22 06/14/2022 COMPR EHENS EMIL METAB OLIC PANEL alkaline phosphatase 53 U/L 31-125 normal Not Available [address], [address], 06/14/2022 16:58:27 06/12/20 22 06/14/2022 COMPR EHENS EMIL METAB OLIC PANEL AST 13 U/L 10-35 normal Not Available [address], [address], 06/14/2022 16:58:27 06/12/20 22 06/14/2022 COMPR EHENS EMIL METAB OLIC PANEL ALT 9 U/L 6-29 normal Not Available [address], [address], 06/14/2022 16:58:27 05/01/20 23 05/04/2023 COMPR EHENS EMIL METAB OLIC PANEL glucose 75 mg/dL 65-99 normal Fasti ng refer ence inter jalil Not Available [address], [address], 05/04/2023 14:03:14 05/01/20 23 05/04/2023 COMPR EHENS EMIL METAB OLIC PANEL urea nitrogen (BUN) 15 mg/dL 7-25 normal Not Available [address], [address], 05/04/2023 14:03:14 05/01/20 23 05/04/2023 COMPR EHENS EMIL METAB OLIC PANEL creatinine 0.63 mg/dL 0.50-0 .99 normal Not Available [address], [address], 05/04/2023 14:03:14 05/01/20 23 05/04/2023 COMPR EHENS EMIL METAB OLIC PANEL eGFR 110 mL/mi n/1.7 3m2 > or = 60 normal The eGFR is based on the CKD-E PI 2020 equat ion. To calcu late the new eGFR from a previ ous Creat inine or Cysta tin C resul t, go to https ://whitney lopez.danny nelson.o williams/alexis sweeney s/ kdoqi /gfr% 5Fcal culat or Not Available [address], [address], 05/04/2023 14:03:14 05/01/20 23 05/04/2023 COMPR EHENS EMIL METAB OLIC PANEL BUN/creatini ne ratio NOT APPLIC ABLE (calc ) 6-22 Not Available [address], [address], 05/04/2023 14:03:14 05/01/20 23 05/04/2023 COMPR EHENS EMIL METAB OLIC PANEL sodium 139 mmol/ L 135-14 6 normal Not Available [address], [address], 05/04/2023 14:03:14 05/01/20 23 05/04/2023 COMPR EHENS EMIL METAB OLIC PANEL potassium 3.9 mmol/ L 3.5-5. 3 normal Not Available [address] [place], [address], 05/04/2023 14:03:14 05/01/20 23 05/04/2023 COMPR EHENS EMIL METAB OLIC PANEL chloride 107 mmol/ L 98-110 normal Not Available [address], [address], 05/04/2023 14:03:14 05/01/20 23 05/04/2023 COMPR EHENS EMIL METAB OLIC PANEL carbon dioxide 26 mmol/ L 20-32 normal Not Available [address], [address], 05/04/2023 14:03:14 05/01/20 23 05/04/2023 COMPR EHENS EMIL METAB OLIC PANEL calcium 9.1 mg/dL 8.6-10 .2 normal Not Available [address], [address], 05/04/2023 14:03:14 05/01/20 23 05/04/2023 COMPR EHENS EMIL METAB OLIC PANEL protein, total 6.5 g/dL 6.1-8. 1 normal Not Available [address], [address], 05/04/2023 14:03:14 05/01/20 23 05/04/2023 COMPR EHENS EMIL METAB OLIC PANEL albumin 4.1 g/dL 3.6-5. 1 normal Not Available [facility] [address], [address], 05/04/2023 14:03:14 05/01/2005/04/2023 COMPR EHENS EMIL METAB OLIC PANEL globulin 2.4 g/dL_ (calc ) 1.9-3. 7 normal Not Available [address], [address], 05/04/2023 14:03:14 05/01/20 23 05/04/2023 COMPR EHENS EMIL METAB OLIC PANEL albumin/glob ulin ratio 1.7 (calc ) 1.0-2. 5 normal Not Available [address], [address], 05/04/2023 14:03:14 05/01/20 23 05/04/2023 COMPR EHENS EMIL METAB OLIC PANEL bilirubin, total 0.5 mg/dL 0.2-1. 2 normal Not Available [address], [address], 05/04/2023 14:03:14 05/01/2005/04/2023 COMPR EHENS EMIL METAB OLIC PANEL alkaline phosphatase 52 U/L 31-125 normal Not Available [facility] [address], [address], 05/04/2023 14:03:14 05/01/20 23 05/04/2023 COMPR EHENS EMIL METAB OLIC PANEL AST 12 U/L 10-35 normal Not Available [address], [address], 05/04/2023 14:03:14 05/01/20 23 05/04/2023 COMPR EHENS EMIL METAB OLIC PANEL ALT 11 U/L 6-29 normal Not Available [address], [address], 05/04/2023 14:03:14 05/01/2005/04/2023 DHEA SULFA TE DHEA sulfate 64 mcg/d L 15-205 normal DHEA- S value s fall with advan cing age. For refer ence, the refer ence inter vals for 31-40 year old patie nts are: Male: 93-41 5 mcg/d L Femal e: 19-23 7 mcg/d L Not Available [address], [address], 05/04/2023 14:03:16 05/01/2005/04/2023 INSUL IN insulin 5.3 [...] Diagn ostic s in 2021. Not Available [facility] [place] [address] [place], [address], 05/04/2023 14:03:16 05/01/2005/04/2023 T4, FREE T4, free 1.2 NG/dL 0.8-1. 8 normal Not Available [facility] [place] [address] [place], [address], 05/04/2023 14:03:17 05/01/2005/04/2023 T3, FREE T3, free 3.7 pg/mL 2.3-4. 2 normal Not Available [facility] [place] [address] [place], [address], 05/04/2023 14:03:17 05/01/2005/04/2023 PROGE STERO NE progesterone <0.5 NG/mL normal Refer ence Range s Femal e Folli cular Phase < 1.0 Lutea l Phase 2.6-2 1.5 Post menop ausal < 0.5 Pregn celia 1st Trime ster 4.1-3 4.0 2nd Trime ster 24.0- 76.0 3rd Trime ster 52.0- 302.0 Not Available [facility] [place] [address] [place], [address], 05/04/2023 14:03:18 05/01/2005/04/2023 TSH TSH 0.03 mIU/L low Refer ence Range > or = 20 Years 0.40- 4.50 Pregn celia Range s First trime ster 0.26- 2.66 Secon d trime ster 0.55- 2.73 Third trime ster 0.43- 2.91 Not Available [facility] [address] [place], [address], 05/04/2023 14:03:19 05/01/20 23 05/04/2023 ESTRA DIOL [...] is recom césar d (orde r code 09991 ). Plefanny e note: patie nts being treat ed [...] s. [facility] s order code 99490 -Estr adiol , Ultra sensi tive LC/MS /MS demon strat es negli gible cross react ivity with fulve stran t. Not Available [facility] [address] [place], [address], 05/04/2023 14:03:19 05/01/20 23 05/04/2023 FSH AND LH FSH 37.5 mIU/m L normal Refer ence Range Folli cular Phase 2.5-1 0.2 Mid-c ycle Peak 3.1-1 7.7 Lutea l Phase 1.5- 9.1 Postm enopa usal 23.0- 116.3 Not Available [facility] [address] [place], [address], 05/04/2023 14:03:20 05/01/20 23 05/04/2023 FSH AND LH LH 15.1 mIU/m L normal Refer ence Range Folli cular Phase 1.9-1 2.5 Mid-C ycle Peak 8.7-7 6.3 Lutea l Phase 0.5-1 6.9 Postm enopa usal 10.0- 54.7 Not Available [facility] [address] [place], [address], 05/04/2023 14:03:20 05/01/2005/04/2023 HEMOG LOBIN A1C hemoglobin A1C 4.6 %_of_ total _HGB <5.7 normal For the purpo se of scree kate for the prese nce of diabe swapnil: <5.7% Consi stent with the absen ce of diabe swapnil 5.7-6 .4% Consi stent with incre ased risk for diabe swapnil (pred iabet es) > or =6.5% Consi stent with diabe swapnil This assay resul t is consi stent with a decre ased risk of diabe swapnil. Curre ntly, no conse nsus exist mariann umaña use of hemog lobin A1c for [...] Care in Diabe swapnil(A DA). Not Available [facility] [address] [place], [address], 05/04/2023 14:03:21 05/01/20 23 05/04/2023 TESTO STERO NE, TOTAL , MS testosterone , total, MS 20 NG/dL 2-45 For addit ional infor cynthia mena refer to https ://ed ucati on.qu mariahdi eBrisk Videos. com/f aq/To Alexandre robin LCMSM S (This link is being provi ded for infor anais nal/e ducat ional purpo ses only. ) (Note ) This test was devel oped and its migue tical perfo rmanc e judson cteri stics have been deter mined by [employer]. It has not been clear ed or appro mihir by the FDA. This assay has been valid ated pursu ant to the CLIA regul ation s and is used for clini hany purpo ses. MDF viv jain [address] [facility] [address] [facility] [address] [phone] Ishaan smith MD Not Available [employer] [facility] [address] [place], [address], 05/04/2023 14:03:22 Result Notes None recorded. Problems Name Problem SNOMED Code Status Onset Date Resolution Date Notes Provider Name and Address Organization Details Recorded Time Vitamin D deficiency 84578041 Active Not Available [facility] 3 04:46:11 Hypothyroidis m 76064391 Active Not Available [facility] 3 04:46:11 Anxiety 47509317 Active Not Available [facility] 3 04:46:11 Prediabetes 316364170 Active 2022 Andrea Bone MD [address], [place], [address] , [employer] [facility] 3 15:52:28 Mood disorder 47012147 Active 2022 CASIMIRO Boyce [address], [address], [place], [address] , [employer] [facility] 3 12:22:17 Weight gain 0054128 Active 2022 HÉCTOR Cruz null, [facility] 3 10:00:26 Generalized anxiety disorder 69628008 Active 2022 Andrea Bone MD [address] [facility], [address], [address] , [facility] [employer] [facility] 3 14:32:16 Vitamin B12 deficiency (non anemic) 23285107 Active 2022 Andrea Bone MD [address] [facility], [address], [address] , [facility] [employer] [facility] 3 16:38:34 Seasonal allergic rhinitis 724758119 Active 2022 Andrea Bone MD [address] [facility], [address], [address] , [facility] [employer] [facility] 3 16:38:46 Problem Notes Documentation Provider Name and Address Organization Details Recorded Time Endocrinology Consult Note : [facility] [employer] [place] [address], [facility] [address]MKVANU, Alicia (id #[id number], : 1975) Documents sent [...] received this fax in error, please visit [email or web address] to notify the sender and confirm that the information will be destroyed. If you do not have internet access, please call to notify the sender and confirm that the information will be destroyed. Thank you for your attention and cooperation. [ID:[id number]][facility] [employer] [facility] [address] [place] [address] , Date: 06/28/2023RE: Jo Shukla, : 1975, PT ID #[id number] Efren Bright [facility], I would like to thank you for [...] LABS 06/28/2023 - 01:30PM - [facility] [place] Problems:Reviewed Problems Hypothyroidism Vitamin B12 deficiency (non [...] TO 6 HOURS NEEDED FOR SHORTNESS OF WSDEFI61/18/22 filled MIGRATION.[id number] cetirizine 10 mg tabletTAKE 1 TABLET BY MOUTH EVERY DAY IN THE JLNYMBO17/25/23 prescribed Andrea Bone MD cyanocobalamin (vit B-12) 1,000 mcg/mL injection solutionADMINISTER 1 ML UNDER THE SKIN EVERY WEEK IN THE XUYZJXR89/25/23 prescribed Andrea Bone MD fluticasone propionate 50 mcg/actuation nasal spray,suspensionSHAKE LIQUID AND USE 2 SPRAYS NASALLY EVERY DAY AT KYHEVG51/18/22 filled MIGRATION.[id number] insulin syringe U-100 with needle 1 mL 31 gauge x 5/16INJECT B12 INJECTIONS ONCE WEEKLY SUBCUTANEOUS FOR 90 DAYS01/16/22 filled MIGRATION.[id number] levothyroxine 88 mcg tabletTAKE 1 TABLET BY [...] 05/01/23:testosterone 20 ng/dLdheas normalglucose 75 mg/dLCr normalLFT pzhkhgj5w 4.6%FSH 37.5 mIU/ml and LH of 15.1 [...] DAY. Qty: (90) tablet Refills: 2 [facility]acy: [facility] #[id number] liothyronine 5 mcg tablet - Take 1 tablet twice a day by oral route around the clock for 90 days. Qty: (180) tablet Refills: 2 Pharmacy: [facility] #[id number] 2. Generalized anxiety disorder-She is having more [...] days. Qty: (90) tablet Refills: 1 Pharmacy: [facility] #[id number] 3. Vitamin B12 deficiency (non anemic)-Continue on B12 injections for energy and focus.E53.8: Deficiency of other specified B group vitamins cyanocobalamin (vit B-12) 1,000 mcg/mL injection solution - ADMINISTER 1 ML UNDER THE SKIN EVERY WEEK IN THE MORNING Qty: (13) mL Refills: 3 Pharmacy: [facility] #[id number] INSULIN SYRINGE U-100 WITH NEEDLE 1 ML 31 GAUGE X 5/16 - inject B12 SQ once weekly x 90 days Qty: 13 Units Refills: 3 Supplier: [facility] #[id number] 4. Seasonal allergic rhinitis-Refill cetirizine. Spent up [...] his/her PCP can refer patient to another foundation relations director in the area. All questions /concerns answered and refills necessary at visit today.J30.2: Other seasonal allergic rhinitis cetirizine 10 mg tablet - TAKE 1 TABLET BY MOUTH EVERY DAY IN THE MORNING Qty: (90) tablet Refills: 1 Pharmacy: [facility] #[id number] Return to Office Patient will return to the office as needed Angelica Mederos RN [facility], [place] - S MD [employer] [facility] 07/01/2023 08:59:46 Procedures Surgical History Date Name Laterality Status Provider Name and Address Organization Details Recorded Time thyroidectomy completed Not Available [facility] 01/02/2023 04:41:31 Hysterectomy, Partial completed Not Available [facility] 01/02/2023 04:41:31 Tubal Ligation completed Not Available [facility] 01/02/2023 04:41:31 Imaging Results None recorded. Procedure Notes None recorded. Medical Equipment None Reported. Allergies Allergen ID Allergen Name Allergen Category Reaction Reaction Severity Criticality Documentation Date Start Date Code Code System Note Provider Name and Address Organization Details Recorded Time 6942 Darvocet- N medicatio n angioedem a Not available Not available 01/02/2023 Not Available [facility] 04:52:07 Medications Name Sig Start [...] Not Available prednisone 10 mg tablet take 5g7sybk, 8j7rqze, 9z4dtue active Not Available Not Available No t [...] Heart rate Body temperature Body weight Systolic And Diastolic Provider Name and Address Organization Details Last Updated DateTime 2 32.2 kg/m2 157.48 cm 98 % 98 % 74 /min 97.1 [degF] 31310.2 6 g 120/70 mm[Hg] Not Available [facility] 3 04:45:04 Date Recorded Body height Body mass index (BMI) Body weight Body temperature Heart rate Systolic And Diastolic Provider Name and Address Organization Details Last Updated DateTime 3 157.48 cm 28.3 kg/m2 59171.8 2 g 98.4 [degF] 66 /min 106/75 mm[Hg] Clotilde YeboahHÉCTOR [facility] [employer] [facility] 3 15:40:06 Date Recorded Body mass index (BMI) Body height Oxygen saturation Oxygen saturation in Arterial blood by Pulse oximetry Heart rate Body temperature Body weight Systolic And Diastolic Provider Name and Address Organization Details Last Updated DateTime 2 31.5 kg/m2 157.48 cm 97 % 97 % 75 /min 98.2 [degF] 36949.8 9 g 120/80 mm[Hg] Not Available [facility] 3 04:45:04 Date Recorded Body height Body mass index (BMI) Body weight Heart rate Systolic And Diastolic Provider Name and Address Organization Details Last Updated DateTime 06/28/2023 157.48 cm 29.4 kg/m2 54273.37 g 80 /min 106/71 mm[Hg] Yana Lomas [facility] [employer] [facility] 06/28/2023 14:24:48 Date Recorded Body mass index (BMI) Body height Oxygen saturation Oxygen saturation in Arterial blood by Pulse oximetry Heart rate Body temperature Body weight Systolic And Diastolic Provider Name and Address Organization Details Last Updated DateTime 2 29.8 kg/m2 157.48 cm 98 % 98 % 71 /min 98.3 [degF] 19445.5 6 g 100/70 mm[Hg] Not Available [facility] 3 04:45:04 Social History Question Answer Notes LastModified by [employer]com[employer] ion Details LastModified Time Tobacco Smoking Status Never Smoker Not Available [facility] 01/02/2023 04:30:30 What Is Your Level Of Caffeine Consumption? Moderate MIGRATION.230423 [id number] Information not available 01/02/2023 How Much Tobacco Do You Chew? None MIGRATION.643302 1769 Information not available 01/02/2023 In The 14 Days Before Symptom Onset, Have You Had Close Contact With A Laboratory-confirm ed COVID-19 While That Case Was Ill? No MIGRATION.587232 1175 Information not available 01/02/2023 In The 14 Days Before Symptom Onset, Have You Had Close Contact With A Person Who Is Under Investigation For COVID-19 While That Person Was Ill? No MIGRATION.140105 6265 Information not available 01/02/2023 What Type Of Diet Are You Following? REGULAR MIGRATION.057690 6327 Information not available 01/02/2023 Which Illicit Or Recreational Drugs Have You Used? None MIGRATION.939724 1872 Information not available 01/02/2023 What Is Your Relationship Status? MIGRATION.237182 6553 Information not available 01/02/2023 Have You Recently Traveled Abroad? No MIGRATION.721890 3879 Information not available 01/02/2023 Do You Have Any Dietary Restrictions? No MIGRATION.071609 3388 Information not available 01/02/2023 Sex: Female Functional Status Question Answer Note LastModified by Organizat ion Details LastModified Time Do you use any illicit or recreational drugs? No MIGRATION.617637 1734 Information not available 01/02/2023 What is your level of alcohol consumption? 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 Never used electronic cigarettes MIGRATION.760498 5686 Information not available 01/02/2023 Mental Status None recorded. Family History Relationship Description Onset Age of this Age Resolved Age Notes LastModified by Organization Details LastModified Time Maternal Grandmother Alzheimer's disease [id number] Not available 01/02/2023 04:41:36 Notes:Thyroid disease runs i n the family-one on mothers side and one on dad's Medical History Condition Response ANEMIA/BLOOD DISORDER Y HYPOTHYROIDISM Y Gynecological HistoryNo gynecological history recorded. Obstetrics History GPAL:G 0 P 0 0 0 0 Past Encounters Encounter ID Performer Location Encounter Start Date Encounter Closed Date Diagnosis/Indication Diagnosis SNOMED-CT Code Diagnosis ICD10 Code Diagnosis IMO Codes Diagnosis Note [id number] Andrea Bone MD [facility] [place] [address] [place] [address] 02/14/2021 00:00:00 02/14/2021 09:46:26 [id number] Andrea Bone MD [facility] [place] [address] [place] [address] 08/15/2021 00:00:00 08/15/2021 10:04:40 [id number] Ernestine Modi MD [facility] Primary Care [facility] [address] [facility] [address] [place] [address] 11/21/2021 00:00:00 11/21/2021 13:50:48 [id number] Andrea Bone MD [facility] [place] [address] [place] [address] 01/16/2022 00:00:00 01/16/2022 11:14:41 [id number] Andrea Bone MD [facility] [place] [address] [place] [address] 05/01/2022 00:00:00 05/01/2022 16:30:08 [id number] MD DOYLE [facility] [place] [address] [place] [address] 09/14/2022 00:00:00 09/14/2022 17:41:06 [id number] Andrea Bone MD [facility] [place] [address] [place] [address] 02/15/2023 15:23:56 02/15/2023 16:14:55 Hypothyroidism 53275954 E03.9 TSH and FT4 in ideal range- [...] and minerals and reduce inflammati on. Prediabetes 017909779 R7 3.03 A1C in ideal range- continue on ozempic 0.5 mg once weekly. Discussed carb counting and how to read food labels. Recommende d patient to utilize the diabetesfo Alere.YouChe.com from the ADA website to help with food preparatio n as this presents ideal carb content per meal so this will make carb counting much easier for patient. 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 Recommende d up to 150 minutes of moderate level activity/e xercise weekly. Perimenopausal state 304 [id number] 09840 Z78.0 Send for full hormone panel to [...] she chooses to go outside of the [facility] system to obtain labwork she was [...] in her case. She voiced understand ing. [id number] Andrea Bone MD [facility] [place] [address] [place] [address] 06/28/2023 14:09:03 06/28/2023 14:46:42 Hypothyroidism 04045298 E03.9 TSH and FT4 in ideal range- [...] reduce inflammati on. Generalize d anxiety disorder 36002578 F41.1 She is having more anxiety and recent divorce. Requesting dose increase- will uptitrate sertraline to 100 mg daily as patient tolerating well. She is aware she has perimenopa usal changes and not wanting to go on HRT at this time. She has no SIs or HIs and will follow up with PCP for further management . Vitamin B1 2 deficiency (non anemic) 83083646 E53.8 Continue on B12 injections for energy and focus. Seasonal a llergic rhinitis [id number] J30.2 Refill cetirizine . Spent up to [...] Recorded Advance Directives Directive None Recorded Payers Insurance Date Sequence Insurance Name Policy Number Policy Thomason Covered Member ID Thomason Member ID Guarantor Name 07/01/2023 1 [employer] [id number] Jo Shukla [id number] Jo Shukla Notes Date Note Type Note Provider Name and Address Organization Details Recorded Time 02/15/2023 text/html ROS as noted in the HPI 48 yo female comes in for follow up [...] pg/MLfood allergy panel negative Andrea Bone MD [address], [place] [address], [place], [address], [employer] [facility] [employer] 02/15/2023 17:03:24 06/28/2023 text/html ROS as noted in the HPI 48 yo female comes in for follow up [...] 05/01/23:testosterone 20 ng/dLdheas normalglucose 75 mg/dLCr normalLFT klnszog6o 4.6%FSH 37.5 mIU/ml and LH of 15.1 mIU/mlprogesterone <0.5 ng/MLestradiol 23 pg/mlFT3 of 3.7 pg/mlFT4 of 1.2 ng/dLTSH of 0.03 uIU/ml Andrea Bone MD [address], [facility] [address], [place], [address], [place] 06/28/2023 16:41:41 OBGyn Episode No OBEpisode recorded.
--- OUTSIDE RECORDS SUMMARY | 2025-09-10 07:54 | XMS_ITS | Patient Health Record ---
Author Organization [facility] Address [address] [place], [place] [address] Care Team Providers Care Test Engineer Nuclear Equipment Name Role Phone Florina Walters Primary Care Provider [phone] Migration, Provider Unavailable Unavailable Allergies No Known Allergies Reason For Referral Reason Patient needs a slee p study Diagnosis 1 Obstructive sleep ap manas (G47.33) Referral Organization [facility] Referring Provider First Name Florina Referring Provider Last Name Romeo Referring Provider Speciality Endocrinol ogcristel Referred Provider Specialty Sleep Medici ne Referral Priority Routine Medications Medication SIG (Take, Route, Frequency, Duration) Notes Start Date End Date Status Liothyronine Sodium 5 MCG Tablet 1 tab(s) orally once a day; Duration: 90 days 07/03/2024 Active Cyanocobalamin 1000 MCG/ML Solution 1 mL subcutaneously weekly; Duration: 90 days please provide insulin syringes so patient can inject once weekly into belly 06/03/2025 Active Estradiol 0.05 MG/24HR Patch Twice Weekly 1 patch to skin Transdermal Two times a Week; Duration: 90 days 10/24/2024 Active Unithroid 88 MCG Tablet TAKE 1 TABLET BY MOUTH DAILY Orally Once a day; Duration: 90 days Active Cetirizine HCl 10 MG Tablet TAKE 1 TABLET BY MOUTH ONCE A DAY Orally Once a day; Duration: 90 days Active buPROPion HCl ER (XL) 150 MG Tablet Extended Release 24 Hour TAKE 1 TABLET BY MOUTH EVERY 24 HOURS Orally Once a day; Duration: 90 days Active busPIRone HCl 10 MG Tablet 1 tab(s) orally 2 times a day; Duration: 90 days 04/16/2024 Active Vitamin D (Ergocalciferol) 1.25 MG (88249 UT) Capsule TAKE 1 CAPSULE BY MOUTH ONCE A WEEK once a week; Duration: 90 days Active Ergocalciferol 1.25 MG (22147 UT) Capsule 1 capsule Orally weekly; Duration: 90 days 06/03/2025 Active Dodex 1000 MCG/ML Solution inject 1 cc subcutaneously once a week; Duration: 90 days *Reorder from [facility] for eRx and Interaction Alerts* 04/16/2024 Active Yuvafem 10 MCG Tablet 1 tab(s) intravaginally 2 times a week; Duration: 90 days 04/16/2024 Active Social History Social History Additional Details Category Social Info Options Details Migrated Social History Migrated Social History (Alcohol:):no (Recreational drug use:):no (Smoking:):no Section Notes: Non-Contributory Problems Problem Type SNOMED Code ICD Code Onset Dates Problem Status W/U Status Risk Notes Problem Hypothyroidism (96674986) Hypothyroidism, unspecified (E03.9) Active confirmed Problem Vitamin D deficiency (08602859) Vitamin D deficiency, unspecified (E55.9) Active confirmed Problem Obesity (933210237) Obesity, unspecified (E66.9) Active confirmed Problem Generalized anxiety disorder (91452264) Generalized anxiety disorder (F41.1) Active confirmed Problem Seasonal allergic rhinitis (132939105) Other seasonal allergic rhinitis (J30.2) Active confirmed Problem Menopause (723142234) Menopausal and female climacteric states (N95.1) Active confirmed Problem Obstructive sleep apnea (30378140) Obstructive sleep apnea (G47.33) Active confirmed Vital Signs Heart Rate 68 /min 06/03/2025 Oximetry 98 % 06/03/2025 Blood pressure diastolic 80 mm Hg 06/03/2025 Weight-kg 80.29 kg 06/03/2025 Height 62 in 06/03/2025 Blood pressure systolic 126 mm Hg 06/03/2025 Weight 177.0 lbs 06/03/2025 BMI 32.37 kg/m2 06/03/2025 Procedures Procedure Date Ordered Date Performed Result Body Sit e Sleep Study 20899 01/22/2025 N/A Encounters Encounter Location Date Provider Diagnosis [address] [id number] 09/19/2024 Provider Migration Hypothyroidism, unspecified E03.9 ; Menopausal and female climacteric states N95.1 ; Generalized anxiety disorder F41.1 and Other seasonal allergic rhinitis J30.[address] [facility] [address] Walters [address] [place] [phone] 10/09/2024 Florina Walters Hypothyroidism, unspecified E03.9 ; Menopausal and female climacteric states N95.1 ; Vitamin D deficiency, unspecified E55.9 and Obesity, unspecified E66.[address] Walters [address] [place] [phone] 01/22/2025 Florina Walters Hypothyroidism, unspecified E03.9 ; Obstructive sleep apnea G47.33 ; Encounter for screening for malignant neoplasm of colon Z12.11 ; Vitamin D deficiency, unspecified E55.9 and Dietary counseling and surveillance Z71.[address] [facility] [address] Walters [address] [place] [phone] 06/03/2025 Florina Walters Hypothyroidism, unspecified E03.9 ; Dietary counseling and surveillance Z71.3 ; Vitamin D deficiency, unspecified E55.9 ; Obesity, unspecified E66.9 ; Obstructive sleep apnea G47.33 and Other fatigue R53.[address] [address] [phone] 10/09/[address] [address] Wal[facility] [address] [place] [phone] 10/23/2024 Florina Walters Menopausal and female climacteric states N95.[address] Walters [address] [place] [phone] 11/02/2024 Florina Walters [facility] [address] [address] 01/22/2025 Florina Walters Hypothyroidism, unspecified E03.[address] [address] [address] 01/22/2025 Florina Walters Hypothyroidism, unspecified E03.9 ; Menopausal and female climacteric states N95.1 ; Vitamin D deficiency, unspecified E55.9 ; Generalized anxiety disorder F41.1 and Other fatigue R53.[address] [address] [phone] 01/22/[address] [address] Wal[facility] [address] [place] [phone] 02/08/[address] [address] Wal[facility] [address] [place] [phone] 02/08/2025 Florina Walters [facility] [address] [place] [phone] 02/17/[address] [facility] [address] [facility] [address] [place] [phone] 05/14/2025 Florina Walters Other fatigue R53.83 ; Vitamin D deficiency, unspecified E55.9 ; Hypothyroidism, unspecified E03.9 ; Menopausal and female climacteric states N95.1 and Generalized anxiety disorder F41.[address] Walters [address] [place] [phone] 05/14/2025 Florina Walters Vitamin D deficiency, unspecified E55.9 ; Hypothyroidism, unspecified E03.9 ; Menopausal and female climacteric states N95.1 ; Generalized anxiety disorder F41.1 and Other fatigue R53.[address] Walters [address] [place] [phone] 05/14/2025 Florina Walters Vitamin D deficiency, unspecified E55.9 ; Hypothyroidism, unspecified E03.9 and Menopausal and female climacteric states N95.1 [facility] [address] [place] [phone] 06/03/2025 [address] [phone] 06/21/2025 Florina Walters Menopausal and female climacteric states N95.[address] [address] 06/21/2025 Florina Walters Menopausal and female climacteric states N95.1 Assessments Encounter Date Diagnosis (ICD Code) Assessment Notes Treatment Notes Treatment Clinical Notes Section Notes 05/14/2025 Other fatigue (ICD-10 - R53.83) 05/14/2025 Vitamin D deficiency, unspecified (ICD-10 - E55.9) 05/14/2025 Vitamin D deficiency, unspecified (ICD-10 - E55.9) 01/22/2025 Hypothyroidism, unspecified (ICD-10 - E03.9) 01/22/2025 Obstructive sleep apnea (ICD-10 - G47.33) 10/23/2024 Menopausal and female climacteric states (ICD-10 - N95.1) 06/21/2025 Menopausal and female climacteric states (ICD-10 - N95.1) 06/21/2025 Menopausal and female climacteric states (ICD-10 - N95.1) 06/03/2025 Hypothyroidism, unspecified (ICD-10 - E03.9) f 06/03/2025 Dietary counseling and surveillance (ICD-10 - Z71.3) Spent 15 minutes preventative counseling patient on dietary recommendations and changes in setting of hyperglycemia- need to restrict refined sugars and processed foods and incorporate up to 150 minutes of moderate level activity weekly. f 01/22/2025 Hypothyroidism, unspecified (ICD-10 - E03.9) 01/22/2025 Hypothyroidism, unspecified (ICD-10 - E03.9) 10/09/2024 Hypothyroidism, unspecified (ICD-10 - E03.9) 10/09/2024 Menopausal and female climacteric states (ICD-10 - N95.1) 09/19/2024 Hypothyroidism, unspecified (ICD-10 - E03.9) 09/19/2024 Menopausal and female climacteric states (ICD-10 - N95.1) 10/09/2024 Vitamin D deficiency, unspecified (ICD-10 - E55.9) 01/22/2025 Menopausal and female climacteric states (ICD-10 - N95.1) 01/22/2025 Encounter for screening for malignant neoplasm of colon (ICD-10 - Z12.11) 06/03/2025 Vitamin D deficiency, unspecified (ICD-10 - E55.9) f 05/14/2025 Hypothyroidism, unspecified (ICD-10 - E03.9) 05/14/2025 Hypothyroidism, unspecified (ICD-10 - E03.9) 05/14/2025 Vitamin D deficiency, unspecified (ICD-10 - E55.9) 05/14/2025 Hypothyroidism, unspecified (ICD-10 - E03.9) 05/14/2025 Menopausal and female climacteric states (ICD-10 - N95.1) 01/22/2025 Vitamin D deficiency, unspecified (ICD-10 - E55.9) 05/14/2025 Menopausal and female climacteric states (ICD-10 - N95.1) 06/03/2025 Obesity, unspecified (ICD-10 - E66.9) f 01/22/2025 Vitamin D deficiency, unspecified (ICD-10 - E55.9) 10/09/2024 Obesity, unspecified (ICD-10 - E66.9) 09/19/2024 Generalized anxiety disorder (ICD-10 - F41.1) 09/19/2024 Other seasonal allergic rhinitis (ICD-10 - J30.2) 01/22/2025 Generalized anxiety disorder (ICD-10 - F41.1) 06/03/2025 Obstructive sleep apnea (ICD-10 - G47.33) f 05/14/2025 Menopausal and female climacteric states (ICD-10 - N95.1) 05/14/2025 Generalized anxiety disorder (ICD-10 - F41.1) 05/14/2025 Generalized anxiety disorder (ICD-10 - F41.1) 05/14/2025 Other fatigue (ICD-10 - R53.83) 06/03/2025 Other fatigue (ICD-10 - R53.83) f 01/22/2025 Dietary counseling and surveillance (ICD-10 - Z71.3) Spent 15 minutes preventative counseling patient on dietary recommendations and changes in setting of hyperglycemia- need to restrict refined sugars and processed foods and incorporate up to 150 minutes of moderate level activity weekly. 01/22/2025 Other fatigue (ICD-10 - R53.83) 10/09/2024 Other Assessment and Plan: 1. Thyroid [...] ankle giving outPlan:- Consider referral to a business services specialist sales for further evaluation and management- Recommend rjwl-khk-kjohmns pain relievers as needed for joint pain [...] examination and/or evaluation, counseling and educating the patient/family/nurse behavioral health care, ordering medications, tests, or procedures, referring and communicating with other health child care director, documenting clinical information in the electronic or other health record, independently interpreting results and communicating results to the patient/family/nurse behavioral health care and care coordinating patient plan. Patient alert and oriented x 4 and aware of discussion noted above and in agreeance to plan in management of hypothyroidism, menopausal changes, vit D def, obesity/weight management. 01/22/2025 Other Assessment and Plan: 1. Hypothyroidism- Continue current doses of Unithroid (88 mcg) and liothyronine (5 mcg)- Monitor thyroid function and symptoms at follow-up visits 2. Suspected Obstructive Sleep Apnea- Order home sleep study- Consider mouth appliance based on sleep study results- Discuss potential coverage for Zepbound (tirzepatide) for sleep apnea treatment, pending sleep study results and further evaluation 3. Obesity- Educate patient on benefits of Zepbound (tirzepatide) for weight loss and potential improvement in sleep apnea symptoms- Address patient's concerns about previous medication experiences- Consider initiating Zepbound if patient agrees, pending sleep study results and further discussion 4. Colon cancer screening; provided order for colonoscopy as patient is overdue for screening Spent 25 minutes preparing to see the patient (ex review of tests/chart), obtaining and / or reviewing separately obtained history, performing a medically appropriate examination and/or evaluation, counseling and educating the patient/family/nurse behavioral health care, ordering medications, tests, or procedures, referring and communicating with other health child care director, documenting clinical information in the electronic or other health record, independently interpreting results and communicating results to the patient/family/nurse behavioral health care and care coordinating patient plan. Patient alert and oriented x 4 and aware of discussion noted above and in agreeance to plan in management of hypothyroidism, MICHELLE, vit D def, weight management and colon cancer screening. 06/03/2025 Angelito Osorio is a patient with hypothyroidism and a history of polyps, presenting for follow-up of thyroid function, sleep issues, and medication management. HypothyroidismAsses sment: Patient is currently on Unithroid and T3 supplementation. Recent lab work shows good thyroid function with free T4 in the high normal range. The elevated free T4 could potentially be attributed to recent sinus or allergy issues. Patient's blood sugar is 82, and A1c is 5.1, indicating good glycemic control.Plan:- Continue Unithroid (dose not specified)- Continue liothyronine (T3) 5 mcg, timing around noon or 1 PM- Consider nasal rinses or saline wash for potential sinus/allergy issues- Consider [id number]-zsexkdw Flonase for allergy symptoms- Refill medications: - Unithroid 88 mcg - Liothyronine 5 mcg Sleep DisturbanceAssessme nt: Patient reports sleep issues. A previous home sleep study through [facility] was unsuccessful. Low magnesium levels and potentially elevated cortisol may be contributing factors.Plan:- Initiate Snap mail-in sleep study - Patient to wear ring device - Download associated kylee - Sleep 6-7 hours for 2 nights - Mail back device for report analysis- Recommend magnesium glycine supplementation for sleep improvement- Consider continuing or restarting reacted magnesium supplementation- Suggest reputable brands for magnesium supplements: Life Extension and Fitz Medication ManagementAssessmen t: Patient requires medication refills and is experiencing improved anxiety symptoms.Plan:Refil l medications:- B12 (dose not specified)- Vitamin D (dose not specified)- Estradiol patch (dose not specified)- Vaginal estrogen (dose not specified)- Bupropion 150 mg- Cetirizine 10 mg- Buspirone 10 mg twice daily Colonoscopy Follow-upAssessment : Patient has a history of polyps and is due for a follow-up colonoscopy.Plan:- Scheduled colonoscopy for September 10- Patient education: Consume green jello at the end of bowel preparation to ensure adequate clearance Spent 25 minutes preparing to see the patient (ex review of tests/chart), obtaining and / or reviewing separately obtained history, performing a medically appropriate examination and/or evaluation, counseling and educating the patient/family/nurse behavioral health care, ordering medications, tests, or procedures, referring and communicating with other health child care director, documenting clinical information in the electronic or other health record, independently interpreting results and communicating results to the patient/family/nurse behavioral health care and care coordinating patient plan. Patient alert and oriented x 4 and aware of discussion noted above and in agreeance to plan in management of hypothyroidism, vit D def, weight management and concern for sleep apnea due to continued fatigue. f Plan Of Treatment Pending Test Test Name Order Date Colonoscopy 01/22/2025 Sleep Study 35625 01/22/2025 Insurance Providers Payer Name Payer Address Payer Phone Subscriber Number Group Number Insured Name Patient Relationship to Insured Coverage Start Date Coverage End Date Piero GRIGSBYBS [address] [place] [address] [id number] Jo Shukla Self - patient is the insured Medical (General) History Medical History History ICD Code THYROID Surgical History Surgery Date(Month/Year) partial hysterectomy
--- OUTSIDE RECORDS SUMMARY | 2025-09-10 07:55 | XMS_ITS | Encounter Summary ---
Author Organization [facility] Address [address] [place] [address] Phone Care Team Providers Care Healthcare Facility Administrator Name Role Phone Brigitte Agrawal MD Primary Care Provider [phone] Encounter Details Date Type Department Care Team (Late st Contact Info) Description 12/26/2023 Transcribe Orders [facility] Sched[facility] [address] [place] [address] Brigitte Agrawal MD [address] [facility] [address] [place] [address] Social History Tobacco Use Types Packs/Day Years [...] on filedocumented in this encounter Care Teams Healthcare Facility Administrator Relationship Specialty Start Date End Date Brigitte Agrawal MD PCP - General Family Medicine 10/08/23 documented as of this encounter
--- OUTSIDE RECORDS SUMMARY | 2025-09-10 07:55 | XMS_ITS | Clinical Summary ---
Author Organization [facility] Address [address] [place] [address] Phone Care Team Providers Care Panel Wirer Name Role Phone Brigitte Agrawal MD Primary Care Provider [phone] Allergies Active Allergy Reactions Criticality Noted Date [...] Comments Blood Pressure 118/74 12/04/2020 4:07 PM EVENT MARKETING MANAGER Pulse 67 12/04/2020 4:07 PM EVENT MARKETING MANAGER Temperature 36.3 C (97.4 F) 12/04/2020 4:07 PM EVENT MARKETING MANAGER Respiratory Rate 16 12/04/2020 4:07 PM EVENT MARKETING MANAGER Oxygen Saturation 97% 12/04/2020 4:07 PM EVENT MARKETING MANAGER Inhaled Oxygen Concentration - - Weight 74.8 kg (165 lb) 12/04/2020 4:07 PM EVENT MARKETING MANAGER Height 157.5 cm (5' 2) 12/04/2020 4:07 PM EVENT MARKETING MANAGER Body Mass Index 30.18 12/04/2020 4:07 PM EVENT MARKETING MANAGER Plan of Treatment Health Maintenance Due Date Last Done Comments Hepatitis C Virus (HCV) Screening 1975 TdaP Immunization 1975 Hepatitis B Immunization (1 of 3 - 19+ 3-dose series) 01/18/1995 Cologuard 01/18/2021 Colonoscopy 01/18/2021 Colorectal Cancer Screening 01/18/2021 Immunochemical Fecal Occult Blood 01/18/2021 Mammogram 12/19/2024 12/19/2023 Influenza Immunization (#1) 2025 SARS-COV-2 Immunization ( - season) 2025 Respiratory Syncytial Virus (RSV) Immunization (Adult) (1 - 1-dose 75+ series) 01/18/2051 Discussion re Starting/Frequency of Mammograms Completed 01/20/2024, 12/19/2023 Human Papillomavirus (HPV) Immunization Aged Out No longer eligible b ased on patient's age to complete this topic Meningococcal Immunization (ACWY) Aged Out No longer [...] CAD W MARLA Routine 12/19/2023 1:15 PM EVENT MARKETING MANAGER Visit for screening mammogram from Last 3 [...] copy. Current study was also evaluated with [employer] version 7.2. 2D digital mammographic views, as well as 3D digital tomosynthesis were performed in the CC and MLO projections. CLINICAL: Diagnostic study. Patient returns for additional imaging over a suspected mass in the left breast. COMPARISONS: Comparison is made to exam dated: 12/19/2023 [facility]. BREAST TISSUE:The tissue of left breast is [...] signed by: Yvonne Peñaloza M.D. ab/:01/20/2024 14:59:50 Clinical Psychiatrist(s): RT Willa(R)(M), [facility]; DES Arrington, [facility] letter sent: Normal Exam Reading location: [facility] OVERALL STUDY BIRADS: 2 Benign [...] Comparison is made to exam dated: 12/19/2023 [facility]. BREAST TISSUE:The tissue of left breast is [...] signed by: Yvonne Peñaloza M.D. ab/:01/20/2024 14:59:50 Clinical Psychiatrist(s): RT Willa(R)(M), [facility]; DES Arrington, [facility] letter sent: Normal Exam Reading location: [facility] OVERALL STUDY BIRADS: 2 Benign us Brigitte Agrawal MD IMG MAMMO ORDERABLES Final Res ult * OZZY SCREENING BILATERAL DIGITAL W CAD W MARLA (12/19/2023 1:15 PM EVENT MARKETING MANAGER) Anatomical Region Laterality Modality breast Bilateral Mammography 12/19/2023 1:37 PM EVENT MARKETING MANAGER Narrative 12/23/2023 11:26 AM EVENT MARKETING MANAGER - OZZY SCREENING BILATERAL DIGITAL W CAD [...] results. Electronically signed by: Diana merrill/herminia:12/20/2023 16:49:59 Clinical Psychiatrist(s): RT Cristofer(R)(M), [facility] letter sent: Additional Imaging Reading location: [facility] BI-RADS: 0 Additional Imaging Evaluation Needed Procedure [...] results. Electronically signed by: Diana merrill/herminia:12/20/2023 16:49:59 Clinical Psychiatrist(s): RT Cristofer(R)(M), [facility] letter sent: Additional Imaging Reading location: [facility] BI-RADS: 0 Additional Imaging Evaluation Needed Brigitte Agrawal MD IMG MAMMO ORDERABLES Final Res ult from Last 3 Months or Most Recently Relevant to Health Maintenance Insurance Care Teams Panel Wirer Relationship Specialty Start Date End Date Brigitte Agrawal MD PCP - General Family Medicine 10/08/23
[2025-09-10 08:18] VITALS: BP 113/83; PULSE 76; RESP 16; TEMP 36.8; O2SAT 99; BMI 31.8
[2025-09-10] MEDS: LACTATED RINGERS 1,000 ML 150 ML IV CONT (08:35)
--- NOTE | 2025-09-10 09:07 | WPDANESEPPF ---
Anes - Initial Pre Proc Eval Procedure: Operation Date: 09/10/25 09:30 Proposed Procedures p Screening Colonoscopy - Dilip Templeton MD Date/Time: 09/10/25 09:07 Surgeon: Dilip Templeton MD Pre Op Diagnosis: Screening Patient Data Age: 50 Gender: F Height: 1.57 m Weight: 79 kg Last Vital Signs Temp 36.8 C 09/10/25 08:18 Pulse 76 09/10/25 08:18 Resp 16 09/10/25 08:18 BP 113/83 09/10/25 08:18 Pulse Ox 99 09/10/25 08:18 O2 Del Method Room Air 09/10/25 08:18 Allergies Allergy/AdvReac Type Severity Reaction Status Date / Time propoxyphene Allergy Intermediate Hives / Verified 09/10/25 08:23 Red Face acetaminophen (From Allergy Other Verified 09/10/25 08:23 Darvocet-N) Home Medications ?Medication ?Instructions ?Recorded ?Confirmed ?Type ibuprofen 800 mg tablet 800 mg PO TID PRN pain #20 tabs 11/03/19 08/30/25 Rx levothyroxine 88 mcg tablet 88 mcg PO DAILY 07/21/20 09/10/25 History (Synthroid) liothyronine 5 mcg tablet 5 mcg PO BID 07/21/20 09/10/25 History bupropion HCl 150 mg 24 hr tablet, 150 mg PO QAM 03/31/25 09/10/25 History extended release (Wellbutrin XL) buspirone 10 mg tablet 10 mg PO BID 03/31/25 09/10/25 History cetirizine 10 mg capsule 10 mg PO DAILY PRN allergy 03/31/25 09/10/25 History cholecalciferol (vitamin D3) 1,250 1,250 mcg PO WEEKLY 03/31/25 09/10/25 History mcg (50,000 unit) capsule cyanocobalamin (vitamin B-12) 100 mcg subcut MONTHLY 03/31/25 09/10/25 History 1,000 mcg/mL injection solution (Dodex) estradiol 0.05 mg/24 hr semiweekly 1 patch transdermal 2XW 03/31/25 09/10/25 History transdermal patch (Vivelle-Dot) estradiol 10 mcg vaginal tablet 10 mcg vaginal 2XW 03/31/25 09/10/25 History (Yuvafeeli) Patient hx anesthesia problems: none Family hx anesthesia problems: none Results Review: All pre-operative results and documents have been reviewed as part of the pre-operative evaluation. [facility] Past Medical History Medical History Left bundle branch block Iron deficiency anemia Post-surgical hypothyroidism Graves disease With history of thyroid storm causing atrial fibrillation. She is now status post thyroidectomy. Surgical History Surgical History History of myomectomy History of thyroidectomy For treatment of Graves disease. History of hysterectomy (~07/12/20) Robotic assisted laparoscopic hysterectomy with bilateral salpingectomy. History of tubal ligation Family History Family History Mother Hypothyroidism Father Lymphoma Social History Social History Social History: Surrogate decision maker: Jayden Vazquez, spouse. Code status: Full code. Smoking status: Never smoker Alcohol intake: never Substance use: never Additional living arrangements comments: Patient lives with her spouse in [place]. They have 2 grown children. 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 Gender identity (if verbalized by the patient): Female Sexual Orientation (if Verbalized by the Patient): Straight or Heterosexual Spiritual care concerns: No Anes - Eval Final PreProcedure Day of Procedure 09/10/25 09:07 Patient weight: obese Heart: regular rate and rhythm Lungs: clear to auscultation Airway: Mallampati scale class II Neurological: alert and oriented Last oral intake: >/= 8 hours ASA classification: III Emergent: no Anesthetic plan: proceed Anesthesia type and monitoring: general GIVS and standard monitoring Results Review: All pre-operative results and documents have been reviewed as part of the pre-operative evaluation. Informed Consent: The patient's anesthetic plan and its attendant risks and benefits were discussed with the patient/family/POA. Questions were solicited and answers provided to the satisfaction of the patient/family/POA.
--- NOTE | 2025-09-10 09:08 | PM.HPGS ---
History of Present Illness History of Present Illness Consent: Risks, benefits, and alternatives have been discussed and questions answered. Patient agrees to proceed with procedure. Chief complaint: Screening Narrative: Jo Shukla is a 50 year old female here for first screening colonoscopy Review of Systems Review of Systems: All systems reviewed & are unremarkable except as noted in HPI and below PMFSH Past Medical History Medical History (Updated 09/10/25 @ 09:08 by Dilip Templeton MD) Colon cancer screening Left bundle branch block Iron deficiency anemia Post-surgical hypothyroidism Graves disease With history of thyroid storm causing atrial fibrillation. She is now status post thyroidectomy. Surgical History Surgical History History of myomectomy History of thyroidectomy For treatment of Graves disease. History of hysterectomy (~07/12/20) Robotic assisted laparoscopic hysterectomy with bilateral salpingectomy. History of tubal ligation Family History Family History Mother Hypothyroidism Father Lymphoma Social History Social History Social History: Surrogate decision maker: Jayden Shukla, spouse. Code status: Full code. Smoking status: Never smoker Alcohol intake: never Substance use: never Additional living arrangements comments: Patient lives with her spouse in [place]. They have 2 grown children. 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 Gender identity (if verbalized by the patient): Female Sexual Orientation (if Verbalized by the Patient): Straight or Heterosexual Spiritual care concerns: No Meds Home Medications and Allergies Home Medications ?Medication ?Instructions ?Recorded ?Confirmed ?Type ibuprofen 800 mg tablet 800 mg PO TID PRN pain #20 tabs 11/03/19 08/30/25 Rx levothyroxine 88 mcg tablet 88 mcg PO DAILY 07/21/20 09/10/25 History (Synthroid) liothyronine 5 mcg tablet 5 mcg PO BID 07/21/20 09/10/25 History bupropion HCl 150 mg 24 hr tablet, 150 mg PO QAM 03/31/25 09/10/25 History extended release (Wellbutrin XL) buspirone 10 mg tablet 10 mg PO BID 03/31/25 09/10/25 History cetirizine 10 mg capsule 10 mg PO DAILY PRN allergy 03/31/25 09/10/25 History cholecalciferol (vitamin D3) 1,250 1,250 mcg PO WEEKLY 03/31/25 09/10/25 History mcg (50,000 unit) capsule cyanocobalamin (vitamin B-12) 100 mcg subcut MONTHLY 03/31/25 09/10/25 History 1,000 mcg/mL injection solution (Dodex) estradiol 0.05 mg/24 hr semiweekly 1 patch transdermal 2XW 03/31/25 09/10/25 History transdermal patch (Vivelle-Dot) estradiol 10 mcg vaginal tablet 10 mcg vaginal 2XW 03/31/25 09/10/25 History (Yuvafem) Allergies Allergy/AdvReac Type Severity Reaction Status Date / Time propoxyphene Allergy Intermediate Hives / Verified 09/10/25 08:23 Red Face acetaminophen (From Allergy Other Verified 09/10/25 08:23 Darvocet-N) Vital Signs Vital Signs - 24 hr 09/10/25 08:18 Temperature 98.3 F Pulse Rate 76 Respiratory Rate 16 Blood Pressure 113/83 Pulse Oximetry 99 Oxygen Delivery Room Air Exam Const: General: comfortable and no acute distress HENMT: Face/Nose/Sinus: Normal nares present Eyes: General: appearance normal, both eyes and all related structures Neck: Neck: no JVD Resp: Auscultation: clear to auscultation bilaterally Cardio: Rate: regular rate Rhythm: regular rhythm GI: Inspection: non-distended GI Palp: Yes Soft to palpation Skin: General skin exam: normal color Extrem: General: normal to inspection Psych: Mental Status: mental status grossly normal Assessment and Plan Assessment and plan (1) Colon cancer screening: Code(s): Z12.11 - Encounter for screening for malignant neoplasm of colon Status: Acute Assessment and Plan: colonoscopy
--- NOTE | 2025-09-10 09:20 | S_PTH ---
PATIENT: Jo Shukla LOC: [facility]#:[id number] AGE/SX: 50/F ROOM: RE09/10/[address]: Dilip Templeton MD : 1975 BED: DIS: 09/10/2025 SPEC #: [id number] RECD: 09/10/25 09:40 STATUS: CECILIA REChuy #: [id number] MARGARITA: 09/10/25 09:[address]: Dilip Templeton DEPT: [facility] Surgical RECD BY: Diane Gonzalez ENTERED: 09/10/25 09:41 SP TYPE: Surgical OTHR DR: Florina WaltersMD Tissues: A - Colon Polypectomy Procedures: Hematoxylin and Eosin Stain Gross and Microscopic Level 4
[2025-09-10 09:22] VITALS: BP 112/69; PULSE 75; RESP 17; O2SAT 97
[2025-09-10 09:32] VITALS: BP 112/69; PULSE 74; RESP 17; O2SAT 97
[2025-09-10 09:42] VITALS: BP 141/68; PULSE 73; RESP 16; O2SAT 100
== END 2025-09-10 09:51 | disposition home or self-care (01) ==
PROVIDERS: PCP Internal Medicine Endocrinology, Diabetes & Metabolism; Referring Provider Internal Medicine Endocrinology, Diabetes & Metabolism; Visit Provider Internal Medicine Gastroenterology
PROC: 0DJD8ZZ Inspection of Lower Intestinal Tract, Via Natural or Artificial Opening Endoscopic (ICD-10-PCS; CPT 45378; principal; 2025-09-10 09:30)
DX: Z12.11 Encounter for screening for malignant neoplasm of colon (principal); D12.2 Benign neoplasm of ascending colon; K64.8 Other hemorrhoids
CPT/HCPCS: 45380; 88305; J2704; J7120